=== PATIENT | male | born 1960 | race Caucasian/White ===

== ENCOUNTER → 2016-09-14 | Outpatient (CLI) | payer OTHER ==
--- NOTE | 2016-09-14 16:11 | CT ---
EXAMINATION TYPE: CT abdomen pelvis w con DATE OF EXAM: 09/14/2016 COMPARISON: CT abdomen and pelvis November 13, 2014. HISTORY: Patient complains of generalized abdominal pain and pressure. CT DLP: 2101.1 mGycm, Automated Exposure Control for Dose Reduction was Utilized. CONTRAST: CT scan of the abdomen and pelvis is performed with oral and with IV Contrast, patient injected with 100 mL of Omnipaque 300. FINDINGS: LUNG BASES: Patchy dependent atelectasis in both lung bases is felt present. LIVER/GB: No significant abnormality is appreciated. PANCREAS: No significant abnormality is seen. SPLEEN: No significant abnormality is seen. . ADRENALS: No significant abnormality is seen. KIDNEYS: No significant abnormality is seen. BOWEL: The oral contrast reaches level of the right colon. Evaluation of distal bowel is suboptimal d ue to lack of enteric contrast at this level. There is no suspicious small or large bowel dilatation seen. Diverticula are seen in the left colon. There is no CT evidence for acute diverticulitis. PROSTATE/SEMINAL VESICLES: Some central zone calcifications in normal size prostate gland are noted. LYMPH NODES: No greater than 1cm abdominal or pelvic lymph nodes are appreciated. OSSEOUS STRUCTURES: Metallic hardware from right hip arthroplasty is redemonstrated, this causes rocky cent streak artifact limiting evaluation of pelvic structures. There is mild anterior spurring in the mid lumbar spine. Loss of normal lumbar lordosis is present. OTHER: No significant additional abnormality is seen. IMPRESSION: Sigmoid colonic diverticulosis without convincing CT evidence for acute diverticulitis. N o ascites is seen. No significant new or acute finding is seen to account for patient's symptoms.
== END | disposition home or self-care (01) ==
LOC: RADCTMAIN 13:54
PROVIDERS: ATTEND Internal Medicine Geriatric Medicine
DX: K57.30 Diverticulosis of large intestine without perforation or abscess without bleeding (principal)
CPT/HCPCS: 74177; Q9967

== ENCOUNTER → 2020-06-17 | Outpatient (CLI) | payer OTHER ==
--- NOTE | 2020-06-17 12:32 | P.STRESS ---
- Stress Test Note Stress Test Results/Findings: Exam Performed: stress echo exercise with con Exam Date: 06/17/20 Reason for Exam: angina Height: 6 ft 4 in Weight: 124.738 kg Protocol: hilda Stage: 2 Duration of Exercise: 6 min Resting Heart Rate: 75 Resting Blood Pressure: 130/61 Maximum Achieved Heart Rate: 137 Maximum Achieved Blood Pressure: 177/67 85% PMHR: 135 100% PMHR: 159 METS: 7.1 Technologist Comment: Stress Test Results/Findings: This is a 59-year-old gentleman with a history of hypercholesterolemia being evaluated for symptoms of chest pain. No Stress data: Baseline EKG showed sinus rhythm with normal MN and QRS duration. Blood pressure at rest is 130/61 and pulse rate of 75. Patient walked on the Hilda protocol for about 6 minutes achieving a maximal rate of 137 with blood pressure 177/67. Patient developed about [address] segments in inferolateral leads associated with chest pain and tightness. The symptoms reverted back to close to normal in about 9 minutes, in the post excised.. Rare PVCs are noted. Echo data: Baseline echo images show normal wall motion and thickening. Exercise echo images showed hypokinesia of the mid midanterior wall and also lateral wall suggestive of ischemia. The wall motions abnormalities normalized in the resting phase after exercise. Final impression: #1. Positive stress test #2. Abnormal stress echo with inducible ischemic changes involving the mid and she wall and lateral wall.
--- NOTE | 2020-06-17 12:36 | P.CRDCN ---
History of Present Illness Consult date: 06/17/20 History of present illness: This is a 59-year-old gentleman with history of hypercholesterolemia who has been experiencing some burning chest pain with moderate activities. Most of hypertension and diabetes of previous ischemic heart disease. His brother and father had cardiac issues, but no heart attacks. In view of these ongoing chest pain. Patient was referred for stress test. On the stress test patient developed chest tightness associated with EKG changes of ischemia. Stress echo also showed ischemic changes involving the mid antral wall and lateral wall. In view of these changes, patient was advised to have a cardiac catheterization. Patient wanted to wait because of some family issues. Patient is being initiated on beta parveen in the form of metoprolol 25 mg by mouth twice a day and aspirin along with nitro sublingual. Patient is already on a lipid-lowering agent. Patient will contact us if he wants to have a cardiac catheterization. Dr. Apodaca's office is being contacted. Review of Systems REVIEW OF SYSTEMS: CONSTITUTIONAL: Accept the falls. Patient is doing well. No complaints of fever or chills EYES: Denies diplopia, blurring of vision EARS, NOSE, MOUTH, THROAT: Denies headaches, denies sore throat. CARDIOVASCULAR: Exertional chest pain RESPIRATORY: Denies shortness of breath, denies cough. GASTROINTESTINAL: Denies change in appetite, denies abdominal pain, denies diarrhea GENITOURINARY: Denies hematuria, denies infections. MUSKULOSKELETAL: Denies pain, denies swelling. Denies any cramps or claudication INTEGUMENTARY: Denies rash, denies eczema. NEUROLOGICAL: Denies focal weakness, or visual disturbance. Denies any dizziness or syncope PSYCHIATRIC: Denies anxiety, denies depression. HEMATOLOGIC/LYMPHATIC: Denies any bleeding, denies enlarged lymph nodes. Past Medical History Past Medical History: No Reported History Additional Past Medical History / Comment(s): Hypercholesterolemia History of Any Multi-Drug Resistant Organisms: None Reported Additional Past Surgical History / Comment(s): right hip replacement Past Psychological History: No Psychological Hx Reported Past Alcohol Use History: Occasional Past Drug Use History: None Reported Medications and Allergies Home Medications Medication Instructions Recorded Confirmed Type Aspirin 81 mg PO DAILY #30 chewable 06/17/20 Rx Metoprolol Tartrate 25 mg PO BID #60 tab 06/17/20 Rx Nitroglycerin Sl Tabs [Nitrostat] 0.4 mg SUBLINGUAL Q5M PRN #25 tab 06/17/20 Rx Allergies Allergy/AdvReac Type Severity Reaction Status Date / Time Penicillins Allergy Unknown Verified 10/19/14 05:07 Childhood Physical Exam Vitals: Intake and Output 06/16/20 06/17/20 06/17/20 22:59 06:59 14:59 Other: Weight 124.738 kg GENERAL EXAM: Patient is alert and oriented and doesn't appear to be in any acute distress HEENT: Normocephalic. Normal reaction of pupils, equal size, normal range of extraocular motion. No erythema or exudates in the throat. NECK: No masses, no nuchal rigidity. CHEST: No chest wall deformity. LUNGS: Equal air entry with no crackles or wheeze. HEART: S1 and S2 normal with no audible mumurs or gallops. Regular rhythm, femorals equal on both sides.. ABDOMEN: No hepatosplenomegaly, normal bowel sounds, no guarding or rigidity. SKIN: No rashes CENTRAL NERVOUS SYSTEM: No focal deficits. EXTREMITIES: No cyanosis, clubbing or edema. Results - Results Results: Stress test is positive Intake and Output 06/16/20 06/17/20 06/17/20 22:59 06:59 14:59 Other: Weight 124.738 kg Patient Weight 06/18/20 06:59 Weight 124.738 kg EKG Interpretations (text) Sinus rhythm Assessment and Plan (1) Exertional angina Current Visit: Yes Status: Acute Code(s): I20.8 - OTHER FORMS OF ANGINA PECTORIS SNOMED Code(s): 970396353 (2) Positive cardiac stress test Current Visit: Yes Status: Acute Code(s): R94.39 - ABNORMAL RESULT OF OTHER CARDIOVASCULAR FUNCTION STUDY SNOMED Code(s): 084699711 (3) Hypercholesterolemia Current Visit: Yes Status: Acute Code(s): E78.00 - PURE HYPERCHO LESTEROLEMIA, UNSPECIFIED SNOMED Code(s): 51845842 Plan: Patient is initiated on metoprolol, aspirin and nitroglycerin along with lipid-lowering agent. Advised to have cardiac catheterization. Patient will think about it and discuss with primary care physician. He'll contact us regarding further course
--- NOTE | 2020-06-17 16:16 | EST ---
Stress Test Results/Findings: Exam Performed: stress echo exercise with con Exam Date: 06/17/20 Reason for Exam: angina Height: 6 ft 4 in Weight: 124.738 kg Protocol: hilda Stage: 2 Duration of Exercise: 6 min Resting Heart Rate: 75 Resting Blood Pressure: 130/61 Maximum Achieved Heart Rate: 137 Maximum Achieved Blood Pressure: 177/67 85% PMHR: 135 100% PMHR: 159 METS: 7.1 Technologist Comment: Stress Test Results/Findings: This is a 59-year-old gentleman with a history of hypercholesterolemia being evaluated for symptoms of chest pain. No Stress data: Baseline EKG showed sinus rhythm with normal CO and QRS duration. Blood pressure at rest is 130/61 and pulse rate of 75. Patient walked on the Hilda protocol for about 6 minutes achieving a maximal rate of 137 with blood pressure 177/67. Patient developed about [address] segments in inferolateral leads associated with chest pain and tightness. The symptoms reverted back to close to normal in about 9 minutes, in the post excised.. Rare PVCs are noted. Echo data: Baseline echo images show normal wall motion and thickening. Exercise echo images showed hypokinesia of the mid midanterior wall and also lateral wall suggestive of ischemia. The wall motions abnormalities normalized in the resting phase after exercise. Final impression: #1. Positive stress test #2. Abnormal stress echo with inducible ischemic changes involving the mid anterior wall and lateral wall. MTDD
== END | disposition home or self-care (01) ==
LOC: RADNMMAIN 08:57
PROVIDERS: ATTEND Internal Medicine Geriatric Medicine
DX: I20.8 Other forms of angina pectoris (principal); R94.39 Abnormal result of other cardiovascular function study; E78.00 Pure hypercholesterolemia, unspecified
CPT/HCPCS: 93351; Q9950

== ENCOUNTER 2020-07-01 09:05 | Day surgery (SDC) | payer OTHER ==
[2020-06-30 08:51] VITALS: BMI 33.5
[~2020-07-01 09:05] MED LIST: ALPRAZolam 0.25 MG TAB PO PRN; ALPRAZolam 0.5 MG TAB PO PRN; ASPIRIN 325 MG TAB PO ONE; ATORVASTATIN 80 MG TAB PO ONE; NITROGLYCERIN SL TABS 0.4 MG TAB SUBLINGUAL PRN; SODIUM CHLORIDE 0.9% 1,000 ML in EMPTY BAG 1 BAG IV ONE
[2020-07-01 09:54] LABS: Basophils # (A) 0.1 k/uL (0-0.2); Basophils % (A) 1 %; Eosinophils # (A) 0.2 k/uL (0-0.7); Eosinophils % (A) 2 %; HCT 46.7 % (39.0-53.0); HGB 16.5 gm/dL (13.0-17.5); Lymphocytes # (A) 1.2 k/uL (1.0-4.8); Lymphocytes % (A) 12 %; MCH 29.8 pg (25.0-35.0); MCHC 35.3 g/dL (31.0-37.0); MCV 84.3 fL (80.0-100.0); Monocytes # (A) 0.8 k/uL (0-1.0); Monocytes % (A) 8 %; Neutrophils # (A) 7.9 k/uL (1.3-7.7); Neutrophils % (A) 77 %; Platelet Count 217 k/uL (150-450); RBC 5.54 m/uL (4.30-5.90); WBC 10.2 k/uL (3.8-10.6)
[2020-07-01 10:05] LABS: African American GFR (CKD) >90 (>60 ml/min/1.73 sqM); Anion Gap 9 mmol/L; Blood Urea Nitrogen 19 mg/dL (9-20); Calcium 9.2 mg/dL (8.4-10.2); Carbon Dioxide 26 mmol/L (22-30); Chloride 106 mmol/L (98-107); Glucose 105 mg/dL (74-99); Non-African American GFR(CKD) >90 (>60 ml/min/1.73 sqM); Potassium 4.3 mmol/L (3.5-5.1); Sodium 141 mmol/L (137-145)
[2020-07-01] MEDS ORDERED: LIDOCAINE 1% INJ 10MG/ML (20 ML MDV) ONE (11:21)
[2020-07-01] MEDS ORDERED: VERAPAMIL 2.5 MG/ML 2 ML AMP ONE (11:21)
[2020-07-01] MEDS ORDERED: HEPARIN SODIUM 1,000 UN/ML (10ML VL) ONE (11:26)
[2020-07-01] MEDS ORDERED: LIDOCAINE 1% INJ 10MG/ML (20 ML MDV) SQ ONE (11:27)
[2020-07-01] MEDS ORDERED: HEPARIN SODIUM 1,000 UN/ML (10ML VL) IV ONE (11:28)
[2020-07-01] MEDS ORDERED: MIDAZOLAM 2 MG/2 ML VIAL IV ONE (11:28)
[2020-07-01] MEDS ORDERED: VERAPAMIL SYRINGE (5 MG/10 ML) INTRAARTER ONE (11:28)
[2020-07-01] MEDS ORDERED: NITROGLYCERIN OINT 1 INCH/GM PACKET TOPICAL ONE ×2 (11:37→11:39)
[2020-07-01] MEDS ORDERED: IOPAMIDOL-370 125ML BTL INJ ONE (12:03)
[2020-07-01] MEDS ORDERED: RX INFO: IV CONTRAST WAS GIVEN 1 EACH MISC MISCELLANE PRN (12:10)
--- NOTE | 2020-07-01 12:33 | P.CARDCATH ---
Date of Procedure: 07/01/20 Preoperative Diagnosis: Chest pain and positive stress test Postoperative Diagnosis: Significant left main disease and also moderate to severe disease in the intermediate Procedure(s) Performed: Left heart catheterization without left ventriculography Description of Procedure: HISTORY: This is a 59-year-old gentleman with history of hypercholesterolemia and family history of ischemic heart disease who recently was evaluated by stress test because of chest pains. Patient developed ischemic changes associated with wall motion abnormalities involving the anterior wall and lateral wall. Patient is advised to have a cardiac catheterization for definitive diagnosis CONSENT:I have discussed the risks, benefits and alternative therapies for the above-mentioned procedure and for both sedation/analgesia as well as necessary b lood product administration, if indicated, as they pertain to this patient. The patient has indicated understanding and acceptance of the risks and procedures discussed. PROCEDURE: Patient was brought to the lab in a fasting state. Patient was given some IV sedation. The right wrist is infiltrated with lidocaine and right radial artery was entered using Seldinger technique. A 6-[place] catheter was left in place and selective coronary arteriography was performed. Patient tolerated the procedure well. TR band was applied for hemostasis. No immediate complications were noted and patient was transferred to [facility] in a stable condition Conscious Sedation: Versed 2mg Fentanyl 0 g Duration 39 minutes HEMODYNAMICS: The aortic pressure is about 100/60. Left ventricular end-diastolic pressures were not measured SELECTIVE CORONARY ARTERIOGRAPHY: LEFT MAIN: There is a insect lesion involving the left main with about 70% stenosis. This is a smoker narrowing without any calcification. The possibility of spasm to be considered THE LEFT ANTERIOR DESCENDING CORONARY ARTERY:. This is a good caliber vessel free of any significant occlusive disease THE INTERMEDIATE CORONARY ARTERY: This is a small to moderate caliber vessel with about 70-80% stenosis near the ostium THE LEFT CIRCUMFLEX AND IS CORONARY ARTERY:. This is a good caliber vessel. Free of occlusive disease and dominant THE RIGHT CORONARY ARTERY:. This is a small-caliber vessel free of occlusive disease LEFT VENTRICULOGRAPHY:. Not performed FINAL IMPRESSION:. Critical lesion involving the left main, although the possibility of spasm to be ruled out. There is moderate to severe disease involving the ostium of the small intermediate PLAN: Evaluation by cardiac surgeon. Films are already reviewed with Dr. KASIA Gamboa. He feels that there is a critical left main disease. If the surgeons or tenderness, patient may need bypass surgery. If there is any question, evaluation by intravascular ultrasound to be considered PROGNOSIS: Fair with successful therapy
--- NOTE | 2020-07-01 14:38 | XR ---
EXAMINATION TYPE: XR chest 2V DATE OF EXAM: 07/01/2020 COMPARISON: NONE HISTORY: Presurgery for CABG TECHNIQUE: Frontal and lateral views of the chest are obtained. FINDINGS: Heart size is within normal limits. Overlying leads. Low lung volumes. No focal consolidat ion, pneumothorax or pleural effusion. Degenerative changes of the thoracic spine. IMPRESSION: 1. No acute pulmonary disease.
[2020-07-01 15:26] LABS: ALT 17 U/L (4-49); AST 16 U/L (17-59); African American GFR (CKD) >90 (>60 ml/min/1.73 sqM); Albumin 3.9 g/dL (3.5-5.0); Alkaline Phosphatase 109 U/L (38-126); Anion Gap 4 mmol/L; Blood Urea Nitrogen 17 mg/dL (9-20); Calcium 8.8 mg/dL (8.4-10.2); Carbon Dioxide 27 mmol/L (22-30); Chloride 107 mmol/L (98-107); Glucose 103 mg/dL (74-99); Magnesium 2.1 mg/dL (1.6-2.3); Non-African American GFR(CKD) >90 (>60 ml/min/1.73 sqM); Potassium 4.3 mmol/L (3.5-5.1); Sodium 138 mmol/L (137-145); Total Bilirubin 0.7 mg/dL (0.2-1.3)
[2020-07-01 15:32] LABS: Partial Thromboplastin Time 24.7 sec (22.0-30.0)
--- NOTE | 2020-07-01 15:57 | US ---
EXAMINATION TYPE: US carotid duplex BILAT DATE OF EXAM: 07/01/2020 COMPARISON: NONE CLINICAL HISTORY: preop cabg. EXAM MEASUREMENTS: RIGHT: Peak Systolic Velocity (PSV) cm/sec ----- Right CCA: 98.3 ----- Right ICA: 90.3 ----- Right ECA: 126.5 ICA/CCA ratio: 0.9 RIGHT: End Diastole cm/sec ----- Right CCA: 17.5 ----- Right ICA: 31. ----- Right ECA: 0.0 LEFT: Peak Systolic Velocity (PSV) cm/sec ----- Left CCA: 106. ----- Left ICA: 110.6 ----- Left ECA: 131.4 ICA/CCA ratio: 1.0 LEFT: End Diastole cm/sec ----- Left CCA: 21.6 ----- Left ICA: 18.7 ----- Left ECA: 6.5 VERTEBRALS (direction of flow): Right Vertebral: Antegrade Left Vertebral: Antegrade Rhythm: Normal [id number] atherosclerotic plaque without significant velocity increases. IMPRESSION: 1. Less than 50% stenosis of the bilateral internal carotid arteries. No evidence of hemodynamically significant stenosis of the common carotid arteries or internal carotid arteries. Mild to moderate at herosclerotic plaque. Criteria for Assigning % of Stenosis / Diameter reduction (Estimation based on the indirect measurements of the internal carotid artery velocities (ICA PSV). 1. Normal (no stenosis)=ICA PSV < 125 cm/s: ratio < 2.0: ICA EDV<40 cm/s. 2. Less than 50% stenosis=ICA PSV < 125 cm/s: ratio < 2.0: ICA EDV<40 cm/s. 3. 50 to 69% stenosis=ICA PSV of 125 to 230 cm/s: ration 2.0 ? 4.0: ICA EDV 40-100 cm/s. 4. Greater than 70% stenosis to near occlusion= ICA PSV > 230 cm/s: ratio > 4.0: ICA EDV > 100 cm/s. 5. Near occlusion= ICA PSV velocities may be low or undetectable: variable ratio and ICA EDV. 6. Total occlusion=unable to detect flow.
--- NOTE | 2020-07-01 16:39 | P.GSCN ---
History of Present Illness Consult date: 07/01/20 Reason for Consult: Coronary artery disease with extensive left main disease and a 70-80% stenosis in the intermediate coronary artery. Requesting physician: Migel Oh History of present illness: This is a 59-year-old gentleman who is followed by Dr. Sabino Apodaca for his primary care service on an outpatient basis. He is a past medical history significant for dyslipidemia, hard of hearing to his right ear, benign prostatic hypertrophy, osteoarthritis with a history of right hip surgery, a lifetime nonsmoker and a family history of early onset coronary artery disease with his brother having cardiac stents placed in his early 50s. In the past few months the patient has been experiencing some burning sensation in his throat with activity mainly shoveling snow. He recently went for his annual physical at Dr. Apodaca's office and he mentioned these symptoms. He denies any recent fever, chills, nausea, vomiting, dizziness, presyncope, syncope or headache. The patient does report that the symptoms are associated with some shortness of breath. Due to the above mentioned complaints he was sent for a stress test which showed a [address] segments and his inferior lateral leads associated with chest pain and tightness after the patient walked on the Stefan protocol for about 6 minutes. The stress test results were reviewed by Dr. Oh from cardiology and the patient was recommended to undergo an elective heart catheterization in which she underwent today. The heart catheterization demonstrated a critical lesion involving the left main coronary artery and a 70-80% stenosis near the ostium of the intermediate coronary artery. Subsequently, due to the findings on the cardiac catheterization a consult was placed to Dr. Jonel Pruitt from thoracic surgery for further evaluation and treatment recommendations including myocardial revascularization surgery. Review of Systems A 14 point review of systems was completed and was negative except as mentioned in the HPI. Past Medical History Past Medical History: Hyperlipidemia, Osteoarthritis (OA), Prostate Disorder Additional Past Medical History / Comment(s): Hypercholesterolemia History of Any Multi-Drug Resistant Organisms: None Reported Past Surgical History: Joint Replacement Additional Past Surgical History / Comment(s): right hip replacement Past Anesthesia/Blood Transfusion Reactions: No Reported Reaction Past Psychological History: No Psychological Hx Reported Smoking Status: Never smoker Past Alcohol Use History: Rare Past Drug Use History: None Reported - Past Family History Mother Family Medical History: Cancer, Hypertension Additional Family Medical History / Comment(s): bone Father Family Medical History: Cancer, Congestive Heart Failure (CHF) Additional Family Medical History / Comment(s): bladder and skin Brother(s) Family Medical History: Cancer, Coronary Artery Disease (CAD) Additional Family Medical History / Comment(s): skin Medications and Allergies Home Medications Medication Instructions Recorded Confirmed Type Aspirin 81 mg PO DAILY #30 chewable 06/17/20 07/01/20 Rx Metoprolol Tartrate 25 mg PO BID #60 tab 06/17/20 07/01/20 Rx Nitroglycerin Sl Tabs [Nitrostat] 0.4 mg SUBLINGUAL Q5M PRN #25 tab 06/17/20 06/30/20 Rx Tamsulosin [Flomax] 0.4 mg PO HS 06/30/20 07/01/20 History Ubidecarenone [Co Q-10] 100 mg PO HS 06/30/20 07/01/20 History Allergies Allergy/AdvReac Type Severity Reaction Status Date / Time Penicillins Allergy Unknown Verified 06/30/20 08:41 Childhood Surgical - Exam Vital Signs Temp Pulse Resp BP 97.3 F L 80 16 136/76 07/01/20 09:47 07/01/20 09:47 07/01/20 09:47 07/01/20 09:47 - General well developed, well nourished, no distress, no pain, obese - Eyes PERRL, normal ocular movement, no icteric - ENT normal pinna, normal nares, normal mucosa, no congestion, decreased hearing (right ear.) - Neck Neck is supple. No lymphadenopathy. no masses, no bruits, trachea midline, no venous distension - Respiratory Lung sounds essentially clear throughout. Respirations are symmetrical and nonlabored. - Cardiovascular Regular rhythm and rate. S1 and S2 present, negative for S3, gallop or murmur. No peripheral edema. - Abdomen Abdomen: soft, non tender, bowel sounds (Positive to all 4 abdominal quadrants.), no organomegaly, no masses, no guarding, no rigid, no distended Hernia: none - Genitourinary Deferred - Rectum Deferred - Integumentary no rash, no growths, no abnormal pigmentation - Neurologic Cranial nerves II through XII intact. normal coordination, normal sensation - Musculoskeletal Moves all 4 extremities equal strength. - Psychiatric oriented to time, oriented to person, oriented to place, speech is normal, rubia ry intact Results - Labs 07/01/20 09:30 07/01/20 15:00 Abnormal Lab Results - Last 24 Hours (Table) 07/01/20 07/01/20 Range/Units 09:30 09:30 Neutrophils # 7.9 H (1.3-7.7) k/uL Glucose 105 H (74-99) mg/dL Diabetes panel 07/01/20 Range/Units 09:30 Sodium 141 (137-145) mmol/L Potassium 4.3 (3.5-5.1) mmol/L Chloride 106 (98-107) mmol/L Carbon Dioxide 26 (22-30) mmol/L BUN 19 (9-20) mg/dL Creatinine 0.87 (0.66-1.25) mg/dL Glucose 105 H (74-99) mg/dL Calcium 9.2 (8.4-10.2) mg/dL Calcium panel 07/01/20 Range/Units 09:30 Calcium 9.2 (8.4-10.2) mg/dL Pituitary panel 07/01/20 Range/Units 09:30 Sodium 141 (137-145) mmol/L Potassium 4.3 (3.5-5.1) mmol/L Chloride 106 (98-107) mmol/L Carbon Dioxide 26 (22-30) mmol/L BUN 19 (9-20) mg/dL Creatinine 0.87 (0.66-1.25) mg/dL Glucose 105 H (74-99) mg/dL Calcium 9.2 (8.4-10.2) mg/dL Adrenal panel 07/01/20 Range/Units 09:30 Sodium 141 (137-145) mmol/L Potassium 4.3 (3.5-5.1) mmol/L Chloride 106 (98-107) mmol/L Carbon Dioxide 26 (22-30) mmol/L BUN 19 (9-20) mg/dL Creatinine 0.87 (0.66-1.25) mg/dL Glucose 105 H (74-99) mg/dL Calcium 9.2 (8.4-10.2) mg/dL - Imaging Additional studies: Cardiac catheterization films reviewed by Dr. PRUITT. Assessment and Plan Assessment: 1. Coronary artery disease with significant left main disease 2. History of hyperlipidemia 3. Benign prostatic hypertrophy 4. History of osteoarthritis with right hip replacement 5. Family history of early onset coronary artery disease with his brother having cardiac stent placement in his early 50s 6. Lifetime nonsmoker Plan: The patient was seen and examined at his bedside in the extended stay unit. His chart and diagnostics are reviewed. The patient was seen and examined by Dr. Jonel Trevino from cardiothoracic surgery. Preoperative testing and preoperative testing has been initiated. A 5 m walk test will be completed once the patient is able to ambulate. The usual preoperative course of myocardial revascularization surgery was discussed in detail with the patient, and his que stions were answered. Continue to maximize medical therapy with aspirin, statin and beta parveen. Once his preoperative testing has been completed an STS risk score will be calculated and discussed with the patient. Medical management and other comorbidities per primary care service. More recommendations to follow based on patient's clinical course. Dr. Pruitt met with the patient and his present at his bedside in the extended stay unit, treatment options were discussed with the patient including myocardial revascularization surgery. Knowing and understanding the risks of myocardial revascularization surgery the patient wishes to proceed with the surgical option. He will be scheduled for myocardial revascularization surgery on 07/06/2020 with left internal mammary artery, endoscopic vein harvest and possible radial artery endoscopic harvest. Thank you Dr. Oh for this consult and we'll look for to working with you in the care of this patient. Time with Patient: Greater than 30
[2020-07-01 17:01] LABS: Appearance,Urine Clear (Clear); Bilirubin,Urine Negative (Negative); Blood,Urine Negative (Negative); Color,Urine Light Yellow; Glucose,Urine (UA) Negative (Negative); Ketones,Urine Negative (Negative); Leukocyte Esterase,Urine Negative (Negative); Nitrite,Urine Negative (Negative); Protein,Urine Negative (Negative); Specific Gravity,Urine 1.011 (1.001-1.035); Urobilinogen,Urine <2.0 mg/dL (<2.0)
[2020-07-01] MEDS ORDERED: TAMSULOSIN 0.4 MG CAP.ER.24H PO SCH (18:00)
[2020-07-01] MEDS ORDERED: METOPROLOL TARTRATE 25 MG TAB PO SCH (18:00)
[2020-07-01] MEDS ORDERED: ATORVASTATIN 10 MG TAB PO SCH (18:00)
[2020-07-01] MEDS: SODIUM CHLORIDE 0.9% 1,000 ML IV SCH (18:59)
[2020-07-01] MEDS ORDERED: NON FORMULARY DRUG (Ubidecarenone [Co Q-10] 100 MG Capsule) PO SCH (21:00)
[2020-07-01 22:24] VITALS: RESP 18
[2020-07-02 02:07] LABS: Hemoglobin A1C 5.1 % (4.0-6.0)
[2020-07-02] MEDS: SODIUM CHLORIDE 0.9% 1,000 ML IV SCH ×2 (05:22→08:50)
[2020-07-02 08:56] LABS: Chol/HDL Ratio 3.46; Cholesterol 135 mg/dL (0-200); LDL Cholesterol,Calculated 66.6 mg/dL (0.0-131.0)
[2020-07-02] MEDS ORDERED: ASPIRIN 81 MG PO SCH ×2 (09:00)
[2020-07-02] MEDS ORDERED: METOPROLOL TARTRATE 25 MG TAB PO SCH (09:00)
--- NOTE | 2020-07-02 11:01 | ECHOF ---
Referral Reason: MEASUREMENTS -------- HEIGHT: 193.0 cm WEIGHT: 123.8 kg BP: 129/79 IVSd: 1.4 cm (0.6 - 1.1) LVIDd: 4.0 cm (3.9 - 5.3) LVPWd: 1.4 cm (0.6 - 1.1) EDV(Teich): 72 ml IVSs: 1.5 cm LVIDs: 2.9 cm LVPWs: 1.5 cm %IVS Thck: 8 % ESV(Teich): 33 ml EF(Teich): 53 % %FS: 27 % SV(Teich): 38 ml RVIDd: 4.6 cm (< 3.3) LALs A4C: 5.0 cm LAAs A4C: 14.5 cm LAESV A-L A4C: 36 ml LAESV MOD A4C: 34 ml LALs A2C: 5.3 cm LAAs A2C: 20.5 cm LAESV A-L A2C: 68 ml LAESV MOD A2C: 63 ml LAESV(A-L): 51 ml LAESV Index (A-L): 20.07 ml/m Ao Diam: 3.6 cm (2.0 - 3.7) LA Diam: 3.8 cm (2.7 - 3.8) AV Cusp: 2.5 cm (1.5 - 2.6) EPSS: 1.0 cm MV E Torsten: 0.86 m/s MV DecT: 187 ms MV Dec Mora: 4.6 m/s MV A Torsten: 0.69 m/s MV E/A Ratio: 1.24 MV PHT: 54 ms LVOT Vmax: 1.13 m/s LVOT maxP.13 mmHg AV Vmax: 1.16 m/s AV maxP.41 mmHg TR Vmax: 2.14 m/s TR maxP.34 mmHg RAP: 5.00 mmHg RVSP: 23.34 mmHg MV EF SLOPE: 140.67 mm/s (70 - 150) MV EXCURSION: 18.74 mm (> 18.000) FINDINGS -------- Sinus rhythm. This was a technically difficult study with suboptimal views. The left ventricular size is normal. There is moderate concentric left ventricular hypertrophy. O verall left ventricular systolic function is low-normal with, an EF between 50 - 55 %. The right ventricle is moderately enlarged. Normal LA size by volume 22+/-6 ml/m2. The right atrium was not well visualized. 5.0mg of Lumason was utilized for enhancement of images Interatrial and interventricular septum intact. The aortic valve was not well visualized. There is no evidence of aortic regurgitation. There is no evidence of aortic stenosis. The mitral valve was not well visualized. No mitral regurgitation. Mild tricuspid regurgitation present. There is no evidence of pulmonary hypertension. The right v entricular systolic pressure, as measured by Doppler, is 23.34mmHg. There is no pulmonic regurgitation present. The aortic root size is normal. IVC Not well visulized. There is no pericardial effusion. CONCLUSIONS -------- 1. The left ventricular size is normal. 2. There is moderate concentric left ventricular hypertrophy. 3. Overall left ventricular systolic function is low-normal with, an EF between 50 - 55 %. 4. The right ventricle is moderately enlarged. 5. Mild tricuspid regurgitation present. DATABASE DESIGN ANALYST: Otilia Chavez [facility]
[2020-07-02 12:05] VITALS: BP 126/73; TEMP 98
--- NOTE | 2020-07-02 12:22 | P.DS ---
Providers Date of admission: 07/01/2020 Attending physician: Migel Oh Consults: 07/01/20 12:14 Consult Physician Urgent Consulting Provider: Dariusz Rayo Consult Reason/Comments: CAD Do you want consulting provider notified?: Already Contacted Primary care physician: Sabino Apodaca - Discharge Diagnosis(es) (1) CAD (coronary artery disease) Current Visit: Yes Status: Acute (2) Exertional angina Current Visit: No Status: Acute (3) Positive cardiac stress test Current Visit: No Status: Acute Hospital Course: : This patient was recently evaluated because of chest pain and shortness of breath. Patient had a stress echocardiogram. Patient had a positive EKG changes associated with chest pain. Stress echocardiogram showed ischemic changes in the mid anterior wall and lateral wall. He was put on beta blockers and aspirin and is advised to have an elective cardiac catheterization. Cardiac catheterization revealed significant left main diseaseand also significant lesion involving the intermediate. The films were reviewed with Dr.BR Gamboa and also cardiac surgeon.It was felt that his left main disease significantand patient was advised aortocoronary bypass surgery.patient was monitored overnight. Patient remained stable without any chest pain, shortness of breath or dizziness or cardiac arrhythmias. His puncture site has healed well without any hematoma. He is tolerating activity. He is being discharged home to have surgery as an outpatient. In patients surgery was considered, however, patient and family wanted him to go home to take care of some of the family issues. Patient's is also ill with multiple myeloma. Considering patient's stable clinical status and family situation, it is felt that patient could have surgery as an outpatient. Patient is advised not to do any heavy lifting, pushing or pulling and report to the hospital if he has any persistent chest pain. He'll continue to be on beta blockers and aspirin with nitroglycerin on when necessary basis and also on lipid-lowering agents. Follow-up most probably after surgery Plan - Discharge Summary Discharge Rx Participant: Yes New Discharge Prescriptions: No Action Aspirin 81 mg PO DAILY #30 chewable Metoprolol Tartrate 25 mg PO BID #60 tab Tamsulosin [Flomax] 0.4 mg PO HS Ubidecarenone [Co Q-10] 100 mg PO HS Atorvastatin [Lipitor] 10 mg PO HS Nitroglycerin Sl Tabs [Nitrostat] 0.4 mg SUBLINGUAL Q5M PRN #25 tab PRN Reason: Chest Pain Discharge Medication List Aspirin 81 mg PO DAILY #30 chewable 06/17/20 [Rx] Metoprolol Tartrate 25 mg PO BID #60 tab 06/17/20 [Rx] Nitroglycerin Sl Tabs [Nitrostat] 0.4 mg SUBLINGUAL Q5M PRN #25 tab 06/17/20 [Rx] Tamsulosin [Flomax] 0.4 mg PO HS 06/30/20 [History] Ubidecarenone [Co Q-10] 100 mg PO HS 06/30/20 [History] Atorvastatin [Lipitor] 10 mg PO HS 07/01/20 [History] Follow up Appointment(s)/Referral(s): Migel Oh MD [STAFF PHYSICIAN] - 1 Week Patient Instructions/Handouts: CABG (Coronary Artery Bypass Graft) (DC) Discharge Disposition: HOME SELF-CARE
[2020-07-02 13:49] VITALS: PULSE 75
--- NOTE | 2020-07-02 14:10 | P.PN ---
Subjective Progress Note Date: 07/02/20 Principal diagnosis: Coronary artery disease with significant left main disease. Previous medical history of hyperlipidemia, benign prostatic hypertrophy, osteoarthritis with rig ht hip replacement, lifetime nonsmoker, and family history of early onset coronary artery disease with his brother having cardiac stent placement in his early 50s The patient is currently sitting up recliner in no acute distress. Denies any chest pain or shortness of breath. He has been ambulatory without difficulty. The patient was seen by Dr. Elena yesterday and discussion was had with Dr. Oh. Our plan is for coronary artery bypass surgery with left internal mammary artery, endoscopic vein harvest, and possible left radial artery harvest next 07/06/[address] Elena. This is acceptable to the patient and Dr. Oh. All questions answered. No new concerns. The patient anticipates being discharged to home today to return as an outpatient. Objective - Vital Signs Vital signs: Vital Signs Temp 98.0 F 07/02/20 08:00 Pulse 75 07/02/20 12:00 Resp 18 07/02/20 04:00 BP 126/73 07/02/20 08:00 Pulse Ox 93 L 07/02/20 08:00 Intake & Output 07/01/20 07/02/20 07/02/20 18:59 06:59 18:59 Intake Total 600 660 Output Total 400 Balance 600 260 Weight 124 kg 123 kg Intake: IV 100 Intake, IV Titration 500 Amount Sodium Chloride 0.9% 1, 500 000 ml @ 75 mls/hr IV . [id number] [facility] Rx#:[id number] Oral 660 Output: Urine 400 Other: Voiding Method Toilet # Voids 1 2 - Exam CONSTITUTIONAL: Appears comfortable, cooperative, no acute distress RESPIRATORY: Lungs sounds diminished bilaterally. Respirations even, nonlabored. Currently on room air with oxygen saturation 93%. Able to achieve 3000 mL on incentive spirometry. Strong cough. CARDIOVASCULAR: S1, S2 present. Regular rate and rhythm, sinus rhythm on telemetry. Palpable peripheral pulses bilaterally. No edema present. No calf pain or tenderness noted. GASTROINTESTINAL: Abdomen soft, nontender, nondistended. Active bowel sounds present 4 quadrants. Tolerating diet. GENITOURINARY: Continues to void INTEGUMENTARY: Skin is warm and dry with evidence of good perfusion. NEUROLOGIC: Cranial nerves II through XII intact MUSKULOSKELETAL: Able to move all extremities, strength equal bilaterally, gait normal PSYCHIATRIC: Alert and oriented to person place and time, appropriate affect, intact judgment and insight - Allied health notes Allied health notes reviewed: nursing - Labs CBC & Chem 7: 07/01/20 09:30 07/01/20 15:00 Labs: Abnormal Lab Results - Last 24 Hours (Table) 07/01/20 Range/Units 15:00 Glucose 103 H (74-99) mg/dL AST 16 L (17-59) U/L Total Protein 6.0 L (6.3-8.2) g/dL HDL Cholesterol 39.0 L (40.0-60.0) mg/dL Microbiology - Last 24 Hours (Table) 07/01/20 Unknown Nasal Screen MRSA/MSSA - Preliminary Nasal Swab Assessment and Plan Assessment: 1. Coronary artery disease with significant left main disease 2. History of hyperlipidemia, treated, cholesterol 135, LDL 66 3. Benign prostatic hypertrophy 4. History of osteoarthritis with right hip replacement 5. Lifetime nonsmoker, preoperative FEV1 62% of predicted 6. Family history of early onset coronary artery disease with his brother having cardiac stent placement in his early 50s Plan: 1. Continue to maximize medical therapy with aspirin, statin, beta blockers 2. Continue preoperative teaching 3. 5 m walk test completed: #1 2.56 seconds, #2 3.0 seconds, #3 2.45 seconds. Patient tolerated well without shortness of breath or difficulty in breathing 4. STS risk was calculated and discussed with the patient 5. The patient may be discharged to home from cardiothoracic surgery standpoint to return as an outpatient for elective coronary artery bypass surgery with left internal mammary artery, endoscopic vein harvesting, possible left radial artery harvesting and ligation of the left atrial appendage on 07/06/[address] Eelna 6. Our contact information was given to the patient should he have any questi ons or concerns Time with Patient: Greater than 30
[2020-07-02] MEDS ORDERED: TAMSULOSIN 0.4 MG CAP.ER.24H PO SCH (21:00)
--- NOTE | 2020-07-07 10:09 | P.VSCSTY ---
Greater Saphenous Vein Mapping This is bilateral lower extremity greater saphenous vein mapping. Date of service: 07/01/2020 Vein quality and ultrasound appearance: We see no endoluminal thrombus or wall changes. Vein size groin right : 7.6 x 6.4 groin left: 4.8 x 5.2 High thigh right: 5.7 x 4.6 high thigh left: 4.6 x 5.0 Mid thigh right: 4.2 x 3.1 mid thigh left: 5.7 x 3.8 Above-knee right: 3.3 x 3.1 above- knee left: 5.3 by 3.8 Below knee right: 2.9 x 2.3 below-knee left: 3.7 x 3.0 Mid calf right: 3.1 x 2.5 mid calf left: 3.2 x 2.3 Ankle right: 2.5 x 1.9 ankle left: 4.3 x 2.7 Impression: Usable bilateral greater saphenous vein.
--- NOTE | 2020-07-14 10:05 | P.ARTDOP ---
Arterial Doppler Bilateral radial artery studies: Date of study: 07/02/2020 Reason for study: Preop CABG Findings: On Doppler assessment we find no significant right to left or segmental pressure gradients. On digital plethysmography with radial artery compression, we see no significant pressure changes On imaging the right radial is 3.8 x 3.1 mm distally, 4.1 x 3.9 mm mid, and 4.7 x 4.1 mm proximally The left radial is 2.8 x 3.1 mm distally, 3.2 x 2.8 mm mid, and 3.1 x 2.7 mm proximally. Impression: Both radials appear usable by standard criteria
== END 2020-07-02 14:08 | disposition home or self-care (01) ==
LOC: CATHCVL 09:05 → 3SCARD 18:22 → CATHCVL 07-02 14:08
PROVIDERS: ATTEND Internal Medicine Cardiovascular Disease
DX: I25.10 Atherosclerotic heart disease of native coronary artery without angina pectoris (principal); E78.00 Pure hypercholesterolemia, unspecified; Z79.82 Long term (current) use of aspirin; Z79.899 Other long term (current) drug therapy; Z88.0 Allergy status to penicillin; Z20.822 Contact with and (suspected) exposure to COVID-19
CPT/HCPCS: 94150; 93306; 93458; 80061; 80053; 84443; 83735; 85025; 85610; 85730; 81003; 87070; 83036; 87635; 71046; 93930; 93970; 93923; 93880; C1894; C1769; J2250; J2001; J1644; Q9950; Q9967; 80048

== ENCOUNTER 2020-07-06 05:33 | Inpatient (IN) | payer OTHER ==
[2020-07-06] MEDS ORDERED: SODIUM CHLORIDE 0.9% 1,000 ML IV ONE (06:00)
[2020-07-06] MEDS ORDERED: LACTATED RINGERS 1,000 ML IV ONE (06:00)
[2020-07-06] MEDS ORDERED: CLEVIDIPINE BUTYRATE 25 MG in EMPTY BAG 1 BAG IV ONE (07:00)
[2020-07-06] MEDS ORDERED: MAGNESIUM SULFATE MG 500 MG/ML IV ONE (07:00)
[2020-07-06] MEDS ORDERED: PROTAMINE SULFATE 250 MG in EMPTY BAG 1 BAG IV ONE (07:00)
[2020-07-06] MEDS ORDERED: NITROGLYCERIN-D5W PMX 50 MG in DEXTROSE/WATER 1 250ML.BAG IV ONE (07:00)
[2020-07-06] MEDS ORDERED: PAPAVERINE 360 MG in SODIUM CHLORIDE 0.9% 90 ML IV ONE ×2 (07:00→09:37)
[2020-07-06] MEDS ORDERED: ASPIRIN 325 MG TAB PO ONE (07:00)
[2020-07-06] MEDS ORDERED: NITROGLYCERIN SL TABS 0.4 MG TAB SUBLINGUAL ONE (07:00)
[2020-07-06] MEDS ORDERED: INSULIN REGULAR 100 UNIT in SODIUM CHLORIDE 0.9% 100 ML IV ONE (07:00)
[2020-07-06] MEDS ORDERED: NITROGLYCERIN-D5W PMX 25 MG/250 ML BTL IV ONE (07:00)
[2020-07-06] MEDS ORDERED: ELECTROLYTE-A SOLUTION 1,000 ML with POTASSIUM CHLORIDE 40 MEQ, MAGNESIUM SULFATE 16 ME... IV ONE ×5 (07:00)
[2020-07-06] MEDS ORDERED: PHENYLEPHRINE 10 MG/ML VIAL IV ONE (07:00)
[2020-07-06] MEDS ORDERED: NOREPINEPHRINE 4 MG in SODIUM CHLORIDE 0.9% 250 ML IV ONE (07:00)
[2020-07-06] MEDS ORDERED: ELECTROLYTE-A SOLUTION 1,000 ML with POTASSIUM CHLORIDE 100 MEQ, MAGNESIUM SULFATE 16 M... IV ONE ×5 (07:00)
[2020-07-06] MEDS ORDERED: CALCIUM CHLORIDE 100 MG/ML 10 ML SYRINGE IV ONE (07:00)
[2020-07-06] MEDS ORDERED: ceFAZolin 1,000 MG in SODIUM CHLORIDE 0.9% IRRIGATIO 1,000 ML IRRIGATION ONE (07:00)
[2020-07-06] MEDS ORDERED: HEPARIN SODIUM 1,000 UN/ML (10ML VL) IV ONE (07:00)
[2020-07-06] MEDS ORDERED: CHLORHEXIDINE GLUCONATE 15 ML CUP MUCOUS MEM ONE (07:00)
[2020-07-06] MEDS ORDERED: SODIUM BICARB 8.4% 50 ML SYR (1 MEQ/ML) IV ONE (07:00)
[2020-07-06] MEDS ORDERED: ceFAZolin 3 GM in SODIUM CHLORIDE 0.9% 100 ML IVPB ONE (07:00)
[2020-07-06] MEDS ORDERED: ALBUMIN HUMAN 5% 500 ML IVPB ONE (07:00)
[2020-07-06] MEDS ORDERED: METOPROLOL TARTRATE 12.5 MG TAB PO ONE (07:00)
[2020-07-06] MEDS ORDERED: ATORVASTATIN 10 MG TAB PO ONE (07:00)
[2020-07-06] MEDS ORDERED: propofoL 1,000 MG/100 ML VIAL IV ONE (07:00)
[2020-07-06] MEDS ORDERED: PHENYLEPHRINE 40 MG in SODIUM CHLORIDE 0.9% 250 ML IV ONE (07:00)
[2020-07-06] MEDS ORDERED: PROTAMINE SULFATE 10 MG/ML 25 ML VIAL IV ONE ×2 (07:00→07:26)
[2020-07-06] MEDS ORDERED: ALBUMIN HUMAN 25% 50 ML IV ONE (07:00)
[2020-07-06] MEDS ORDERED: TRANEXAMIC ACID 2,000 MG in SODIUM CHLORIDE 0.9% 80 ML IV ONE ×4 (07:00)
[2020-07-06] MEDS ORDERED: HEPARIN SODIUM,PORCINE 5,000 UNIT in SODIUM CHLORIDE 0.9% 500 ML 500 ML IV ONE (07:00)
[2020-07-06] MEDS ORDERED: ELECTROLYTE-R (PH 7.4) 1,000 ML IV.SOLN IV ONE (07:26)
[2020-07-06] MEDS ORDERED: ePHEDrine SULFATE/0.9% NACL/PF 50 MG/5 ML SYRINGE IV ONE (07:26)
[2020-07-06] MEDS ORDERED: SODIUM CHLORIDE 0.9% 250 ML BAG ONE (07:26)
[2020-07-06] MEDS ORDERED: PHENYLEPHRINE-0.9% NACL SYG 1,000 MCG/10 ML SYRINGE ONE (07:26)
[2020-07-06] MEDS ORDERED: TRANEXAMIC ACID 1,000 MG/10 ML VIAL ONE (07:26)
[2020-07-06] MEDS ORDERED: PROPOFOL 10 MG/ML 20 ML VIAL IV ONE (07:26)
[2020-07-06] MEDS ORDERED: SUCCINYLCHOLINE CHLORIDE 100 MG/5 ML SYR IV ONE (07:26)
[2020-07-06] MEDS ORDERED: MIDAZOLAM 2 MG/2 ML VIAL ONE (07:26)
[2020-07-06] MEDS ORDERED: SODIUM CHLORIDE 0.9% IRRIG 1,000 ML BTL IRRIGATION ONE (07:26)
[2020-07-06] MEDS ORDERED: ceFAZolin 1,000 MG VIAL ONE (07:26)
[2020-07-06] MEDS ORDERED: CALCIUM CHLORIDE 100 MG/ML 10 ML SYRINGE ONE (07:26)
[2020-07-06] MEDS ORDERED: VECURONIUM 10 MG VIAL IV ONE (07:26)
[2020-07-06] MEDS ORDERED: fentaNYL (PF) 50 MCG/ML 2 ML AMP ONE (07:26)
[2020-07-06] MEDS ORDERED: ALBUMIN HUMAN 5% (25gm) 500 ML VIAL IVPB ONE (07:26)
[2020-07-06] MEDS ORDERED: NITROGLYCERIN-D5W PMX 50 MG/250 ML BOTTLE IV ONE (07:26)
[2020-07-06] MEDS ORDERED: fentaNYL (PF) 50 MCG/ML 50 ML VIAL ONE (07:26)
[2020-07-06] MEDS ORDERED: INSULIN REGULAR 100 UNIT/ML VIAL ONE (07:26)
[2020-07-06] MEDS ORDERED: SODIUM CHLORIDE 0.9% 100 ML BAG ONE (07:26)
[2020-07-06] MEDS ORDERED: MAGNESIUM SULFATE 4 MEQ/ML 10ML VIAL ONE (07:26)
[2020-07-06] MEDS ORDERED: HEPARIN SODIUM,PORCINE 10,000 UNIT/ML 1 ML VIAL ONE (07:26)
[2020-07-06] MEDS ORDERED: LIDOCAINE 2% SYG (PF) 100 MG/5 ML ONE (07:26)
[2020-07-06 08:22] LABS: ABG Base Excess -0.2 mmol/L; ABG Glucose Whole Blood 110 mg/dL (75-99); ABG HCO3 25 mmol/L (21-25); ABG Hematocrit 43 % (34.0-46.0); ABG Ionized Calcium 4.7 mg/dL (4.5-5.3); ABG Lactic Acid Whole Blood 0.9 mmol/L (0.5-1.6); ABG PCO2 44 mmHg (35-45); ABG PH 7.37 (7.35-7.45); ABG PO2 353 mmHg (83-108); ABG Potassium Whole Blood 4.4 mmol/L (3.4-4.5); ABG Sodium Whole Blood 140 mmol/L (135-146); ABG TCO2 27 mmol/L (19-24)
[2020-07-06] MEDS ORDERED: SODIUM CHLORIDE 0.9% 500 ML 500 ML with HEPARIN SODIUM,PORCINE 5,000 UNIT IV ONE ×2 (09:37)
[2020-07-06] MEDS ORDERED: ceFAZolin 1,000 MG in SODIUM CHLORIDE 0.9% 1,000 ML IRRIGATION ONE (09:37)
[2020-07-06 09:49] LABS: ABG Glucose Whole Blood 149 mg/dL (75-99); ABG HCO3 24 mmol/L (21-25); ABG Hematocrit 39 % (34.0-46.0); ABG Ionized Calcium 4.6 mg/dL (4.5-5.3); ABG Lactic Acid Whole Blood 1.1 mmol/L (0.5-1.6); ABG Oxygen Saturation 99.2 % (94-97); ABG PCO2 53 mmHg (35-45); ABG PH 7.27 (7.35-7.45); ABG PO2 161 mmHg (83-108); ABG Potassium Whole Blood 4.2 mmol/L (3.4-4.5); ABG Sodium Whole Blood 139 mmol/L (135-146); ABG TCO2 26 mmol/L (19-24)
[2020-07-06 10:45] LABS: ABG Glucose Whole Blood 168 mg/dL (75-99); ABG HCO3 22 mmol/L (21-25); ABG Hematocrit 33 % (34.0-46.0); ABG Lactic Acid Whole Blood 1.5 mmol/L (0.5-1.6); ABG PCO2 40 mmHg (35-45); ABG PH 7.35 (7.35-7.45); ABG PO2 303 mmHg (83-108); ABG Potassium Whole Blood 4.6 mmol/L (3.4-4.5); ABG Sodium Whole Blood 136 mmol/L (135-146); ABG TCO2 24 mmol/L (19-24)
[2020-07-06 11:17] LABS: ABG Base Excess -1.9 mmol/L; ABG Glucose Whole Blood 195 mg/dL (75-99); ABG HCO3 24 mmol/L (21-25); ABG Hematocrit 31 % (34.0-46.0); ABG Ionized Calcium 4.1 mg/dL (4.5-5.3); ABG PCO2 43 mmHg (35-45); ABG PH 7.35 (7.35-7.45); ABG PO2 237 mmHg (83-108); ABG Potassium Whole Blood 4.8 mmol/L (3.4-4.5); ABG Sodium Whole Blood 138 mmol/L (135-146); ABG TCO2 25 mmol/L (19-24)
[2020-07-06 11:56] LABS: ABG Base Excess -2.5 mmol/L; ABG Glucose Whole Blood 200 mg/dL (75-99); ABG HCO3 24 mmol/L (21-25); ABG Hematocrit 32 % (34.0-46.0); ABG Ionized Calcium 4.1 mg/dL (4.5-5.3); ABG PCO2 47 mmHg (35-45); ABG PH 7.32 (7.35-7.45); ABG PO2 280 mmHg (83-108); ABG Potassium Whole Blood 4.6 mmol/L (3.4-4.5); ABG Sodium Whole Blood 139 mmol/L (135-146); ABG TCO2 25 mmol/L (19-24)
[2020-07-06 12:17] LABS: ABG Lactic Acid Whole Blood 2.5 mmol/L (0.5-1.6)
[2020-07-06 12:43] LABS: ABG Base Excess -2.7 mmol/L; ABG Glucose Whole Blood 169 mg/dL (75-99); ABG HCO3 23 mmol/L (21-25); ABG Hematocrit 34 % (34.0-46.0); ABG PCO2 42 mmHg (35-45); ABG PH 7.35 (7.35-7.45); ABG PO2 239 mmHg (83-108); ABG Potassium Whole Blood 3.9 mmol/L (3.4-4.5); ABG Sodium Whole Blood 141 mmol/L (135-146); ABG TCO2 24 mmol/L (19-24)
[2020-07-06 13:02] LABS: ABG Lactic Acid Whole Blood 2.7 mmol/L (0.5-1.6)
[2020-07-06 14:06] LABS: Glucose,Whole Blood 150 mg/dL (75-99)
[2020-07-06] MEDS ORDERED: CALCIUM GLUCONATE 2 GM in SODIUM CHLORIDE 0.9% 100 ML IVPB PRN (14:09)
[2020-07-06] MEDS ORDERED: BENZOCAINE/MENTHOL LOZENG 1 EACH LOZENGE MUCOUS MEM PRN (14:09)
[2020-07-06] MEDS ORDERED: Potassium Replacement Protocol 1 EACH MISC MISCELLANE PRN (14:09)
[2020-07-06] MEDS ORDERED: Magnesium Replacement Protocol 1 EACH MISC MISCELLANE PRN (14:09)
[2020-07-06] MEDS ORDERED: hydrALAZINE HCL 20 MG/ML 1 ML VIAL IVP PRN (14:09)
[2020-07-06] MEDS ORDERED: DEXTROSE 5% IN WATER 100 ML with AMIODARONE 150 MG IV PRN (14:09)
[2020-07-06] MEDS ORDERED: IPRATROPIUM-ALBUTEROL 3 ML NEB INHALATION PRN (14:09)
[2020-07-06] MEDS ORDERED: Phosphorus Replacement Protoco 1 EACH MISC MISCELLANE PRN (14:09)
[2020-07-06] MEDS ORDERED: AMIODARONE 450 MG in DEXTROSE 5% IN WATER 250 ML IV PRN ×2 (14:09)
[2020-07-06] MEDS ORDERED: METOCLOPRAMIDE 5 MG/ML 2 ML VIAL IVP PRN (14:09)
[2020-07-06] MEDS ORDERED: AMIODARONE 360 MG in DEXTROSE 5% IN WATER 200 ML IV PRN ×2 (14:09)
[2020-07-06] MEDS ORDERED: ONDANSETRON 4 MG/2 ML VIAL IVP PRN (14:09)
[2020-07-06 14:34] LABS: ABG HCO3 24 mmol/L (21-25); ABG Oxygen Saturation 98.9 % (94-97); ABG PCO2 46 mmHg (35-45); ABG PH 7.33 (7.35-7.45); ABG PO2 141 mmHg (83-108); ABG TCO2 25 mmol/L (19-24)
--- NOTE | 2020-07-06 14:36 | XR ---
EXAMINATION TYPE: XR chest 1V portable DATE OF EXAM: 07/06/2020 COMPARISON: 07/01/2020 HISTORY: Post cardiac surgery TECHNIQUE: Single frontal view of the chest is obtained. FINDINGS: Badger-Aurea catheter seen with the tip overlying the left cardiac border likely within the l eft pulmonary artery correlate clinically. ET tube 2.4 cm above airam and NG tube is seen to level o f GE junction. Suggestion of an epicardial lead with mediastinal drain and chest tube on the left. No sizable pneumothorax. Basilar consolidation and tiny effusion noted. Postsurgical changes are seen i n the heart size is normal. IMPRESSION: 1. Correlate for positioning Badger-Aurea catheter 2. NG tube is somewhat proximal likely at the level of the GE junction and could be advanced. 3. Postoperative changes with basilar postoperative atelectasis favored over infiltrate correlate cli nically.
[2020-07-06 14:37] LABS: Allen Test Performed? No
[2020-07-06] MEDS ORDERED: DEXMEDETOMIDINE/0.9% NACL(PMX) 400 MCG in EMPTY BAG 1 BAG IV SCH (14:45)
[2020-07-06] MEDS ORDERED: NITROGLYCERIN-D5W PMX 50 MG in DEXTROSE/WATER 1 250ML.BAG IV SCH (14:45)
[2020-07-06] MEDS ORDERED: CLEVIDIPINE BUTYRATE 25 MG in EMPTY BAG 1 BAG IV SCH (14:45)
[2020-07-06 14:57] LABS: Basophils % (A) 0 %; Eosinophils % (A) 0 %; Lymphocytes # (A) 0.7 k/uL (1.0-4.8); Lymphocytes % (A) 7 %; MCH 30.3 pg (25.0-35.0); MCV 84.1 fL (80.0-100.0); Monocytes # (A) 0.8 k/uL (0-1.0); Monocytes % (A) 8 %; Neutrophils # (A) 8.6 k/uL (1.3-7.7); Neutrophils % (A) 84 %; Platelet Count 149 k/uL (150-450); RBC 3.92 m/uL (4.30-5.90); RDW 13.9 % (11.5-15.5); WBC 10.2 k/uL (3.8-10.6)
[2020-07-06 14:58] LABS: Ionized Calcium 4.6 mg/dL (4.5-5.3)
[2020-07-06] MEDS ORDERED: NOREPINEPHRINE 4 MG in SODIUM CHLORIDE 0.9% 250 ML IV SCH (15:00)
[2020-07-06] MEDS ORDERED: INSULIN REGULAR 100 UNIT in SODIUM CHLORIDE 0.9% 100 ML IV SCH (15:00)
[2020-07-06 15:01] LABS: HGB 11.9 gm/dL (13.0-17.5)
[2020-07-06] MEDS: ALBUMIN HUMAN 5% 250 ML in EMPTY BAG 1 BAG IVPB PRN (15:05)
[2020-07-06 15:10] LABS: ALT 16 U/L (4-49); AST 35 U/L (17-59); African American GFR (CKD) >90 (>60 ml/min/1.73 sqM); Alkaline Phosphatase 67 U/L (38-126); Anion Gap 5 mmol/L; Blood Urea Nitrogen 18 mg/dL (9-20); Calcium 7.6 mg/dL (8.4-10.2); Carbon Dioxide 24 mmol/L (22-30); Chloride 111 mmol/L (98-107); Glucose 138 mg/dL (74-99); Magnesium 2.4 mg/dL (1.6-2.3); Non-African American GFR(CKD) >90 (>60 ml/min/1.73 sqM); Sodium 140 mmol/L (137-145); Total Protein 4.7 g/dL (6.3-8.2)
[2020-07-06] MEDS: LACTATED RINGERS 1,000 ML IV SCH (15:19)
[2020-07-06] MEDS ORDERED: CALCIUM GLUCONATE 2 GM in SODIUM CHLORIDE 0.9% 100 ML IVPB ONE (15:20)
[2020-07-06] MEDS ORDERED: IPRATROPIUM-ALBUTEROL 3 ML NEB INHALATION SCH (16:00)
[2020-07-06] MEDS ORDERED: ceFAZolin 3 GM in SODIUM CHLORIDE 0.9% 100 ML IVPB SCH (16:00)
[2020-07-06 16:13] LABS: Glucose,Whole Blood 180 mg/dL (75-99)
[2020-07-06 16:20] LABS: INR 1.2 (<1.2); Partial Thromboplastin Time 30.9 sec (22.0-30.0)
[2020-07-06 16:32] LABS: ABG Base Excess -3.4 mmol/L; ABG HCO3 23 mmol/L (21-25); ABG Oxygen Saturation 95.8 % (94-97); ABG PCO2 49 mmHg (35-45); ABG PH 7.28 (7.35-7.45); ABG PO2 87 mmHg (83-108); ABG TCO2 25 mmol/L (19-24)
[2020-07-06 16:34] LABS: Allen Test Performed? NO
[2020-07-06] MEDS: ceFAZolin 3 GM in SODIUM CHLORIDE 0.9% 100 ML IVPB SCH ×2 (16:44→23:14)
[2020-07-06 17:15] LABS: Glucose,Whole Blood 200 mg/dL (75-99)
[2020-07-06 17:42] LABS: Basophils % (A) 0 %; Eosinophils % (A) 0 %; HCT 35.4 % (39.0-53.0); HGB 12.8 gm/dL (13.0-17.5); Lymphocytes # (A) 0.7 k/uL (1.0-4.8); Lymphocytes % (A) 5 %; MCH 30.6 pg (25.0-35.0); MCHC 36.2 g/dL (31.0-37.0); MCV 84.5 fL (80.0-100.0); Monocytes # (A) 0.7 k/uL (0-1.0); Monocytes % (A) 6 %; Neutrophils # (A) 11.3 k/uL (1.3-7.7); Neutrophils % (A) 89 %; Platelet Count 165 k/uL (150-450); RBC 4.18 m/uL (4.30-5.90); RDW 13.9 % (11.5-15.5); WBC 12.8 k/uL (3.8-10.6)
--- NOTE | 2020-07-06 17:44 | P.CNPUL ---
History of Present Illness Consult date: 07/06/20 Requesting physician: Jonel Elena Reason for consult: chest pain Chief complaint: Coronary artery disease with left main disease History of present illness: This is a 59-year-old white male patient of Dr. Apodaca, and had been complaining of a burning chest pain with moderate activities. Patient's medical history significant for hypertension, diabetes mellitus type 2, dyslipidemia, early onset heart disease in his family, BPH, osteoarthritis, patient is a lifetime nonsmoker and his . Patient underwent stress test because of chest pains, and developed ischemic changes associated with wall motion abnormalities involving the anterior wall and lateral wall. Patient had a cardiac catheterization on 07/01/2020 showing critical lesion involving the left main, moderate to severe disease involving the ostium of the small intermediate. Echocardiogram from 07/01/2020 showed low normal EF of 50-55%, no evidence of aortic stenosis or aortic regurgitation, mild TR, no evidence of pulmonary hypertension and right- sided pressure was 23.3 mmHg. Carotid ultrasound showed no evidence of hemodyna mically significant stenosis and mild to moderate atherosclerotic plaque. Was referred to cardiothoracic surgery for possibility of surgical intervention, and on 07/06/2020 patient underwent three-vessel coronary bypass grafting with HUTCHISON to LAD, SVG to the OM, and SVG to the ramus, with right leg endoscopic vein harvest, and exclusion of the left atrial appendage with 35 mm Atriclip. Patient was seen in the postoperative period in the intensive care unit, he has extubated fairly quickly after arriving to the intensive care unit, he extubated within 2 hours of OR exit time. His currently on a few liters per nasal cannula, breathing comfortably, he is awake and alert, oriented 3, following commands, hemodynamically he is stable, 1 mediastinal and left pleural chest tubes connected together, and there is a total of 160 mL of serous output since surgery, no air leak, patient received 250 mL of 5% albumin, his PA pressures 35/15, CVP is 10, CO 8.0, and a cardiac index is 3.3. His total EBL was 2 L intraoperatively, and patient received Cell Saver crystalloids and 5% albumin, currently hemodynamically stable, he is on 0.9 normal seen at a rate of 50 ML per hour, and nitroglycerin drip is at 5 mics per kilo per minute. Review of Systems All systems: negative Constitutional: Denies chills, Denies fever Eyes: denies blurred vision, denies pain Ears, nose, mouth and throat: Denies headache, Denies sore throat Cardiovascular: Reports chest pain, Reports decreased exercise tolerance, Denies shortness of breath Respiratory: Reports dyspnea, Denies cough Gastrointestinal: Denies abdominal pain, Denies diarrhea, Denies nausea, Denies vomiting Musculoskeletal: Denies myalgias Integumentary: Denies pruritus, Denies rash Neurological: Denies numbness, Denies weakness Psychiatric: Denies anxiety, Denies depression Endocrine: Denies fatigue, Denies weight change Past Medical History Past Medical History: Hyperlipidemia, Osteoarthritis (OA), Prostate Disorder Additional Past Medical History / Comment(s): Hypercholesterolemia History of Any Multi-Drug Resistant Organisms: None Reported Past Surgical History: Heart Catheterization, Joint Replacement Additional Past Surgical History / Comment(s): right hip replacement Past Anesthesia/Blood Transfusion Reactions: No Reported Reaction Smoking Status: Never smoker - Past Family History Mother Family Medical History: Cancer, Hypertension Additional Family Medical History / Comment(s): bone Father Family Medical History: Cancer, Congestive Heart Failure (CHF) Additional Family Medical History / Comment(s): bladder and skin Brother(s) Family Medical History: Cancer, Coronary Artery Disease (CAD) Additional Family Medical History / Comment(s): skin Medications and Allergies Home Medications Medication Instructions Recorded Confirmed Type Aspirin 81 mg PO DAILY #30 chewable 06/17/20 07/06/20 Rx Metoprolol Tartrate 25 mg PO BID #60 tab 06/17/20 07/06/20 Rx Nitroglycerin Sl Tabs [Nitrostat] 0.4 mg SUBLINGUAL Q5M PRN #25 tab 06/17/20 07/06/20 Rx Tamsulosin [Flomax] 0.4 mg PO HS 06/30/20 07/06/20 History Ubidecarenone [Co Q-10] 100 mg PO HS 06/30/20 07/06/20 History Atorvastatin [Lipitor] 10 mg PO HS 07/01/20 07/06/20 History Allergies Allergy/AdvReac Type Severity Reaction Status Date / Time Penicillins Allergy Unknown Verified 07/06/20 05:54 Childhood Physical Exam Vitals: Vital Signs Temp Pulse Pulse Resp BP BP Pulse Ox 07/06/20 16:13 80 06/01/21 16:07 87 07/06/20 06:00 117/75 07/06/20 05:58 98.2 F 76 18 126/77 97 Intake and Output 07/06/20 07/06/20 07/06/20 06:59 14:59 22:59 Intake Total 100 6 Output Total 2850 Balance 100 -2844 Intake: IV 100 6 Output: Urine 850 Estimated Blood Loss 1999 Other: Weight 124.1 kg GENERAL EXAM: Alert, very pleasant, 59-year-old white male, on 3 L of oxygen, extubated comfortable in no apparent distress. HEAD: Normocephalic/atraumatic. EYES: Normal reaction of pupils, equal size. Conjunctiva pink, sclera white. NOSE: Clear with pink turbinates. THROAT: No erythema or exudates. NECK: No masses, no JVD, no thyroid enlargement, no adenopathy. CHEST: No chest wall deformity. Symmetrical expansion. Distal incision is clean dry and intact, 1 mediastinal and left pleural chest tubes connected tog ether, with a total of 160 mL of sanguinous output in the Pleur-evac, which is connected to wall suction, no evidence of air leak. Epicardial AV wires to external pacemaker box with a backup rate, intrinsic rhythm is sinus rhythm LUNGS: Equal air entry with no crackles, wheeze, rhonchi or dullness. CVS: Regular rate and rhythm, normal S1 and S2, no gallops, no murmurs, no rubs ABDOMEN: Soft, nontender. No hepatosplenomegaly, normal bowel sounds, no guarding or rigidity. EXTREMITIES: No clubbing, no edema, no cyanosis, 2+ pulses and upper and lower extremities. MUSCULOSKELETAL: Muscle strength and tone normal. Right leg interrupted incision covered with a surgical dressing and Bridger wrap SPINE: No scoliosis or deformity SKIN: No rashes CENTRAL NERVOUS SYSTEM: Alert and oriented -3. No focal deficits, tone is normal in all 4 extremities. PSYCHIATRIC: Alert and oriented -3. Appropriate affect. Intact judgment and insight. Results - Laboratory Findings CBC and BMP: 07/06/20 14:00 07/06/20 14:00 ABG ABG pH 7.28 (7.35-7.45) L 07/06/20 16:30 ABG pCO2 49 mmHg (35-45) H 07/06/20 16:30 ABG pO2 87 mmHg (83-108) 07/06/20 16:30 ABG O2 Saturation 95.8 % (94-97) 07/06/20 16:30 PT/INR, D-dimer PT 12.0 sec (9.0-12.0) 07/06/20 14:00 INR 1.2 (<1.2) H 07/06/20 14:00 Abnormal lab findings: Abnormal Labs 07/02/20 07/06/20 07/06/20 07:04 08:24 09:51 RBC Hgb Hct Plt Count Neutrophils # Lymphocytes # INR APTT ABG pH 7.27 L ABG pCO2 53 H ABG pO2 353 H 161 H ABG Total CO2 27 H 26 H ABG O2 Saturation 100.0 H 99.2 H ABG Hematocrit ABG Potassium ABG Ionized Calcium ABG Glucose 110 H 149 H ABG Lactic Acid Hemoglobin 12.8 L Chloride Creatinine Glucose POC Glucose (mg/dL) Calcium Magnesium Total Protein Albumin Arterial Blood Potassium Arterial Blood Glucose 110 H 149 H Crossmatch See Detail 07/06/20 07/06/20 07/06/20 10:47 11:19 11:58 RBC Hgb Hct Plt Count Neutrophils # Lymphocytes # INR APTT ABG pH 7.32 L ABG pCO2 47 H ABG pO2 303 H 237 H 280 H ABG Total CO2 25 H 25 H ABG O2 Saturation 100.0 H 100.0 H 100.0 H ABG Hematocrit 33 L 31 L 32 L ABG Potassium 4.6 H 4.8 H 4.6 H ABG Ionized Calcium 4.0 L 4.1 L 4.1 L ABG Glucose 168 H 195 H 200 H ABG Lactic Acid 2.0 H 2.5 H* Hemoglobin 10.9 L 10.2 L 10.5 L Chloride Creatinine Glucose POC Glucose (mg/dL) Calcium Magnesium Total Protein Albumin Arterial Blood Potassium 4.6 H 4.8 H 4.6 H Arterial Blood Glucose 168 H 195 H 200 H Crossmatch 07/06/20 07/06/20 07/06/20 12:45 14:00 14:00 RBC 3.92 L Hgb 11.9 L D Hct 33.0 L Plt Count 149 L Neutrophils # 8.6 H Lymphocytes # 0.7 L INR 1.2 H APTT 30.9 H ABG pH ABG pCO2 ABG pO2 239 H ABG Total CO2 ABG O2 Saturation 100.0 H ABG Hematocrit ABG Potassium ABG Ionized Calcium 4.0 L ABG Glucose 169 H ABG Lactic Acid 2.7 H* Hemoglobin 11.0 L Chloride Creatinine Glucose POC Glucose (mg/dL) Calcium Magnesium Total Protein Albumin Arterial Blood Potassium Arterial Blood Glucose 169 H Crossmatch 07/06/20 07/06/20 07/06/20 14:00 14:04 14:28 RBC Hgb Hct Plt Count Neutrophils # Lymphocytes # INR APTT ABG pH 7.33 L ABG pCO2 46 H ABG pO2 141 H ABG Total CO2 25 H ABG O2 Saturation 98.9 H ABG Hematocrit ABG Potassium ABG Ionized Calcium ABG Glucose ABG Lactic Acid Hemoglobin Chloride 111 H Creatinine 0.60 L Glucose 138 H POC Glucose (mg/dL) 150 H Calcium 7.6 L Magnesium 2.4 H Total Protein 4.7 L Albumin 3.0 L Arterial Blood Potassium Arterial Blood Glucose Crossmatch 07/06/20 07/06/20 16:11 16:30 RBC Hgb Hct Plt Count Neutrophils # Lymphocytes # INR APTT ABG pH 7.28 L ABG pCO2 49 H ABG pO2 ABG Total CO2 25 H ABG O2 Saturation ABG Hematocrit ABG Potassium ABG Ionized Calcium ABG Glucose ABG Lactic Acid Hemoglobin Chloride Creatinine Glucose POC Glucose (mg/dL) 180 H Calcium Magnesium Total Protein Albumin Arterial Blood Potassium Arterial Blood Glucose Crossmatch - Diagnostic Findings Chest x-ray: report reviewed, image reviewed Additional studies: EKG reviewed Assessment and Plan Plan: Assessment: #1. Symptomatic coronary artery disease with left main stenosis, status post three-vessel coronary artery bypass grafting with the HUTCHISON to the LAD, SVG to the OM and the ramus, right leg endoscopic vein harvest, and left atrial appendage exclusion, postoperative day #0 on 07/06/2020 #2. Routine postoperative ventilator management, and patient extubated within 2 hours of OR exit time on postoperative day #0 on 07/06/2020 #3. Lifetime nonsmoker, and preop FEV1 was 2.9 L or 62% of predicted, FVC of 3.53 L or 57% of predicted, FEV1 to FVC ratio of 109%, consistent with moderate restrictive pattern #4. Hypertension #5. Diabetes mellitus #6. Dyslipidemia #7. Osteoarthritis #8. Benign prostatic hypertrophy #9. History of early onset ischemic heart disease in the family Plan: Patient has been successfully weaned and extubated Tolerating extubation quite well so far Encourage deep breathing and coughing Provide incentive spirometer Hemodynamically he is stable GI and DVT prophylaxis per CT surgery Breathing treatments 4 times a day and when necessary Follow-up labs and chest x-ray later on this evening and in the morning We'll continue to closely follow I performed a history & physical examination of the patient and discussed their management with my nurse practitioner, La Tate. I reviewed the nurse practitioner's note and agree with the documented findings and plan of care. Lung sounds are positive for diminished breath sounds. The findings and the impression was discussed with the patient. I attest to the documentation by the nurse practitioner. Time with Patient: Greater than 30
[2020-07-06 18:28] LABS: Glucose,Whole Blood 187 mg/dL (75-99)
[2020-07-06] MEDS: HEPARIN SODIUM,PORCINE/PF 5,000 UNIT/0.5 ML SYRINGE SQ SCH ×2 (18:38→23:14)
[2020-07-06] MEDS: ACETAMINOPHEN IV (For NPO) 1,000 MG in EMPTY BAG 1 BAG IVPB SCH ×2 (18:39→23:45)
[2020-07-06] MEDS: KETOROLAC 15 MG/ML 1 ML VIAL IVP SCH ×2 (18:39→23:13)
[2020-07-06 19:16] LABS: Glucose,Whole Blood 172 mg/dL (75-99)
[2020-07-06] MEDS: IPRATROPIUM-ALBUTEROL 3 ML NEB INHALATION SCH (19:59)
[2020-07-06 20:01] LABS: Basophils % (A) 0 %; Eosinophils % (A) 0 %; HCT 35.4 % (39.0-53.0); HGB 12.7 gm/dL (13.0-17.5); Lymphocytes # (A) 0.4 k/uL (1.0-4.8); Lymphocytes % (A) 3 %; MCH 30.3 pg (25.0-35.0); MCHC 35.9 g/dL (31.0-37.0); MCV 84.3 fL (80.0-100.0); Mean Platelet Volume 7.2; Monocytes # (A) 0.7 k/uL (0-1.0); Monocytes % (A) 6 %; Neutrophils # (A) 10.6 k/uL (1.3-7.7); Neutrophils % (A) 90 %; Platelet Count 160 k/uL (150-450); RDW 13.8 % (11.5-15.5); WBC 11.8 k/uL (3.8-10.6)
[2020-07-06 20:15] LABS: Glucose,Whole Blood 158 mg/dL (75-99)
[2020-07-06 21:18] LABS: Glucose,Whole Blood 150 mg/dL (75-99)
[2020-07-06 22:33] LABS: Glucose,Whole Blood 160 mg/dL (75-99)
[2020-07-06 23:52] LABS: Glucose,Whole Blood 162 mg/dL (75-99)
[2020-07-07 01:28] LABS: Glucose,Whole Blood 153 mg/dL (75-99)
[2020-07-07] MEDS ORDERED: HYDROcodone/APAP 5-325MG 1 EACH TAB PO PRN (01:32)
[2020-07-07 03:06] LABS: Glucose,Whole Blood 141 mg/dL (75-99)
[2020-07-07 03:20] LABS: Basophils % (A) 0 %; Eosinophils % (A) 0 %; HCT 34.7 % (39.0-53.0); HGB 11.6 gm/dL (13.0-17.5); Lymphocytes # (A) 0.6 k/uL (1.0-4.8); Lymphocytes % (A) 5 %; MCH 28.4 pg (25.0-35.0); MCHC 33.6 g/dL (31.0-37.0); MCV 84.4 fL (80.0-100.0); Mean Platelet Volume 7.5; Monocytes % (A) 9 %; Neutrophils # (A) 10.3 k/uL (1.3-7.7); Neutrophils % (A) 86 %; Platelet Count 162 k/uL (150-450); RBC 4.11 m/uL (4.30-5.90); RDW 14.4 % (11.5-15.5)
[2020-07-07 03:30] LABS: Ionized Calcium 4.7 mg/dL (4.5-5.3)
[2020-07-07 03:43] LABS: ALT 16 U/L (4-49); AST 49 U/L (17-59); African American GFR (CKD) >90 (>60 ml/min/1.73 sqM); Albumin 3.1 g/dL (3.5-5.0); Alkaline Phosphatase 62 U/L (38-126); Anion Gap 3 mmol/L; Blood Urea Nitrogen 16 mg/dL (9-20); Carbon Dioxide 24 mmol/L (22-30); Chloride 108 mmol/L (98-107); Glucose 136 mg/dL (74-99); Magnesium 2.1 mg/dL (1.6-2.3); Non-African American GFR(CKD) >90 (>60 ml/min/1.73 sqM); Sodium 135 mmol/L (137-145); Total Bilirubin 0.6 mg/dL (0.2-1.3)
[2020-07-07 04:34] LABS: Glucose,Whole Blood 145 mg/dL (75-99)
[2020-07-07] MEDS: HYDROcodone/APAP 5-325MG 1 EACH TAB PO PRN (04:53)
[2020-07-07] MEDS: KETOROLAC 15 MG/ML 1 ML VIAL IVP SCH ×4 (05:14→23:03)
[2020-07-07 06:08] LABS: Glucose,Whole Blood 131 mg/dL (75-99)
[2020-07-07] MEDS: ALBUMIN HUMAN 5% 250 ML in EMPTY BAG 1 BAG IVPB PRN (06:15)
[2020-07-07 07:09] LABS: Glucose,Whole Blood 144 mg/dL (75-99)
[2020-07-07] MEDS: IPRATROPIUM-ALBUTEROL 3 ML NEB INHALATION SCH ×4 (07:31→21:32)
--- NOTE | 2020-07-07 07:42 | OP ---
OPERATIVE REPORT DATE OF SURGERY: 07/06/2020. PREOP DIAGNOSIS: Coronary artery disease. POSTOPERATIVE DIAGNOSIS: Coronary artery disease. PROCEDURE PERFORMED: 1. Coronary bypass grafting x 3 vessels (left internal mammary artery to left anterior descending artery, saphenous vein graft to ramus artery, saphenous vein graft to obtuse marginal artery). 2. Endoscopic harvest right greater saphenous vein. 3. Ligation of left atrial appendage using 35 mm Atriclip. 4. Epiaortic ultrasound. 5. Transesophageal echocardiogram. 6. Excision of chest wall soft tissue mass. SURGEON: Jonel Elena M.D. MANAGER PEDIATRIC: 1. SUMAN Cristina. 2. Tyshawn Rubio NP. 3. SUMAN Hollis. ANESTHESIA: General. SPECIMEN: Excision chest mass. COMPLICATION: None. INDICATION: The patient is a 59-year-old male with a past medical history significant for hyperlipidemia, osteoarthritis, hypercholesterolemia, and BPH who reports a burning sensation in his throat with activity. He also reports some associated shortness of breath. Workup revealed a significant distal left main coronary artery lesion. Coronary artery bypass was recommended. The risks, benefits, and alternatives of the procedure were discussed with the patient and his . All of their questions were answered. Consent was obtained. FINDINGS: The left internal mammary artery was a good conduit with brisk flow. The saphenous vein was a good conduit. The LAD measured 1.5 mm. The ramus artery measured 1.5 mm. The obtuse marginal artery measured 1.3 mm. There was a mass in the distal portion of the sternal wound, which was consistent with lipoma. PROCEDURE DETAILS: The patient was taken to the operating room and placed supine on the operating table. After the induction of general anesthesia, he was prepped and draped in the usual sterile fashion. Preoperative transesophageal echocardiogram confirmed a preserved ejection fraction with trace mitral regurgitation. Of note, there was a soft tissue mass noted in the distal portion of his sternal wound. The patient does have a history of multiple lipomas and this soft tissue mass was fairly consistent with lipoma. The fatty mass was excised and sent to pathology. The capsule was excised as well. A median sternotomy was performed. The left internal mammary artery was harvested in the standard fashion taking care to clip all branches. Intravenous heparin was administered. The vessel was transected distally revealing brisk flow. Simultaneously, greater saphenous vein was harvested from the right lower extremity using endoscopic technique. All branches were tied. Both the mammary artery and saphenous vein were good conduits. A pericardial cradle was created. The ascending aorta was palpated. There was no significant calcific plaque noted. Epiaortic ultrasound was then performed on the ascending aorta. Again no calcific plaque or atheromatous disease was identified. An arterial cannula was placed in the distal ascending aorta. A venous cannula was placed through the right atrial appendage and directed into the IVC. Both antegrade and retrograde catheters were placed as well. The patient was then placed on cardiopulmonary bypass with good decompression of the heart. The aortic cross- clamp was applied. Cold blood potassium cardioplegia was delivered in both antegrade and retrograde fashion to achieve arrest of the heart. Of note, cardioplegia was delivered every 15- 20 minutes while the patient remained under crossclamp. I began by identifying the left atrial appendage. A 35 mm AtriClip was placed across its base to ensure ligation. Next, attention was turned to the lateral wall. Both the ramus artery and obtuse marginal artery were identified. The obtuse marginal artery was dissected free. A small arteriotomy was created. This vessel accepted a 1.0 mm probe. Using saphenous vein in a reverse fashion, an end-to-side anastomosis was created. This was performed using running 7-0 Prolene suture. The graft was hemostatic and had great flow. Next, attention was turned to the ramus artery. It too was dissected free. A small arteriotomy was created. This vessel accepted a 1.5 mm probe. Using saphenous vein in a reverse fashion, an end-to-side anastomosis was created. This was performed using running 7-0 Prolene suture. The graft was hemostatic and had great flow. Finally, attention was turned to the anterior wall. The left anterior descending was dissected free in its midportion. A small arteriotomy was created. This vessel accepted a 1.5 mm probe both proximally and distally. Using the left internal mammary artery, an end-to-side anastomosis created. This was performed running 8-0 Prolene suture. The graft was hemostatic. The mammary pedicle was then tacked down to the anterior surface of the heart. Attention was then turned to the proximal anastomoses. These were performed in end-to- side fashion using running 6-0 Prolene sutures. One liter of warm blood was delivered in retrograde fashion. Both lidocaine and magnesium were administered as well. The aortic cross- clamp was removed. Both vein grafts were de-aired in the standard fashion. Distal anastomoses were inspected and appeared to be hemostatic. Temporary atrial and ventricular pacing wires were placed and brought through the skin. The patient was then weaned off the cardiopulmonary bypass. He with the addition of low-dose Levophed. Followup transesophageal echocardiogram confirmed good left ventricular ejection fraction and no change in his trace mitral regurgitation. Protamine was administered. There were no adverse reactions. The remaining cannulas were then removed. The mediastinum was then copiously irrigated with warm saline solution. Again, all surgical sites were inspected for bleeding and appeared to be hemostatic. Soft tissues were reapproximated over the ascending aorta as well as over the apex of the heart. A straight 32-Georgian chest tube was placed and directed into the left pleural space. A straight 36- Georgian chest tube was placed and directed into the mediastinum. These were both secured to the skin using sutures. The sternum was then reapproximated using the Woodruff cable system. The cables were placed in a [id number] fashion. At the completion of closure, the sternum was well aligned. The remainder of the wound was closed in multiple layers. Sterile dressing was applied. The patient appeared to tolerate the procedure well. There were no immediate complications. He returned to the ICU in critical but stable condition. He did not receive any intraoperative blood products. SAM / KYLE: [id number] / MTDD
--- NOTE | 2020-07-07 07:52 | XR ---
EXAMINATION TYPE: XR chest 1V portable DATE OF EXAM: 07/07/2020 COMPARISON: 07/06/2020 HISTORY: Post cardiac surgery TECHNIQUE: Single frontal view of the chest is obtained. FINDINGS: Status post median sternotomy. Dickinson-Aurea catheter is seen with its tip projecting over the left heart. Correlate clinically. Endotracheal tube has been removed. Enteric catheter has been move d. Left-sided chest tube is seen. Overlying leads. No pneumothorax. Mild bibasilar airspace opacities and tiny effusions are stable. IMPRESSION: 1. Correlate for positioning Dickinson-Aurea catheter 2.. Enteric catheter and endotracheal tube have been removed 3. Postoperative changes with bibasilar airspace opacities suggestive of atelectasis or pneumonitis w ith small pleural effusions.
[2020-07-07] MEDS: HEPARIN SODIUM,PORCINE/PF 5,000 UNIT/0.5 ML SYRINGE SQ SCH ×3 (08:41→23:03)
[2020-07-07] MEDS: ASPIRIN 325 MG TAB PO SCH (08:41)
[2020-07-07] MEDS: ATORVASTATIN 40 MG TAB PO SCH (08:41)
[2020-07-07] MEDS: METOPROLOL TARTRATE 25 MG TAB PO SCH ×2 (08:41→21:06)
[2020-07-07] MEDS: CLOPIDOGREL 75 MG TAB PO SCH (08:42)
[2020-07-07] MEDS: ceFAZolin 3 GM in SODIUM CHLORIDE 0.9% 100 ML IVPB SCH (08:42)
--- NOTE | 2020-07-07 08:58 | CONS ---
CONSULTATION Mr. Gan is 59-year-old male who underwent coronary artery bypass grafting yesterday. The patient has been followed by Dr. Oh on a regular basis and has been having some episode of chest burning. Underwent a stress test that revealed evidence of ST-segment changes as well as segmental wall motion abnormality. He underwent cardiac catheterization and was found to have significant left main disease and underwent coronary artery bypass grafting yesterday. He is extubated, sitting up in the chair, feeling stable. He has mild soreness in the chest. He is in sinus mechanism. The patient had an echocardiogram during his last admission at the time of the cardiac catheterization that revealed ejection fraction of 50% to 55%. with mild tricuspid regurgitation and no evidence of pulmonary hypertension. Hemodynamically, he is stable. He continued to be in sinus mechanism. He has a history of hypertension and hyperlipidemia. MEDICATION: At this time include aspirin once a day, Lipitor 40 mg daily and metoprolol tartrate 12.5 mg twice a day. PHYSICAL EXAMINATION: Blood pressure 120/50 with a heart rate in the 90s and low 100s. LUNGS: Lungs are clear with no wheezes or rales. HEART: Regular rhythm S1, S2. No S3, plus rub, no gallop. ABDOMEN: Soft, nontender, positive bowel sounds. EXTREMITIES: No edema. LAB DATA: Lab data revealed BUN and creatinine of 16 and 0.6, potassium 4.0, hemoglobin 11.6. IMPRESSION: 1. Status post coronary artery bypass grafting. 2. Hypertension. 3. Hyperlipidemia. RECOMMENDATION: We will continue present therapy. Continue incentive spirometry. Increase his level of activity. Depending on his progress further recommendation will be made. MMODL / IJN: [id number] /
[2020-07-07] MEDS ORDERED: PANTOPRAZOLE 40 MG/10 ML VIAL IVP SCH (09:00)
[2020-07-07] MEDS ORDERED: MAGNESIUM HYDROXIDE 2,400 MG/10 ML CUP PO PRN (09:00)
[2020-07-07] MEDS ORDERED: METOPROLOL TARTRATE 12.5 MG TAB PO SCH (09:00)
[2020-07-07] MEDS ORDERED: bisacodyL 10 MG SUPP RECTAL PRN (09:00)
[2020-07-07 09:10] LABS: Glucose,Whole Blood 117 mg/dL (75-99)
[2020-07-07 09:58] VITALS: BMI 34.5
[2020-07-07 11:09] LABS: Glucose,Whole Blood 108 mg/dL (75-99)
[2020-07-07] MEDS: LACTATED RINGERS 1,000 ML IV SCH (11:24)
--- NOTE | 2020-07-07 12:42 | P.PN ---
Subjective Progress Note Date: 07/07/20 Principal diagnosis: Status post CABG postoperative day #1. This is a 59-year-old white male patient of Dr. Apodaca, and had been complaining of a burning chest pain with moderate activities. Patient's medical history significant for hypertension, diabetes mellitus type 2, dyslipidemia, early onset heart disease in his family, BPH, osteoarthritis, patient is a lifetime nonsmoker and his . Patient underwent stress test because of chest pains, and developed ischemic changes associated with wall motion abnormalities involving the anterior wall and lateral wall. Patient had a cardiac catheterization on 07/01/2020 showing critical lesion involving the left main, moderate to severe disease involving the ostium of the small intermediate. Echocardiogram from 07/01/2020 showed low normal EF of 50-55%, no evidence of aortic stenosis or aortic regurgitation, mild TR, no evidence of pulmonary hypertension and right- sided pressure was 23.3 mmHg. Carotid ultrasound showed no evidence of hemodynamically significant stenosis and mild to moderate atherosclerotic plaque. Was referred to cardiothoracic surgery for possibility of surgical intervention, and on 07/06/2020 patient underwent three-vessel coronary bypass grafting with HUTCHISON to LAD, SVG to the OM, and SVG to the ramus, with right leg endoscopic vein harvest, and exclusion of the left atrial appendage with 35 mm Atriclip. Patient was seen in the postoperative period in the intensive care unit, he has extubated fairly quickly after arriving to the intensive care unit, he extubated within 2 hours of OR exit time. His currently on a few liters per nasal cannula, breathing comfortably, he is awake and alert, oriented 3, following commands, hemodynamically he is stable, 1 mediastinal and left pleural chest tubes connected together, and there is a total of 160 mL of serous output since surgery, no air leak, patient received 250 mL of 5% albumin, his PA pressures 35/15, CVP is 10, CO 8.0, and a cardiac index is 3.3. His total EBL was 2 L intraoperatively, and patient received Cell Saver crystalloids and 5% albumin, currently hemodynamically stable, he is on 0.9 normal seen at a rate of 50 ML per hour, and nitroglycerin drip is at 5 mics per kilo per minute. Patient was reevaluated today on 07/07/2020, remains in the ICU, patient is status post CABG, had three-vessel bypass, extubated yesterday within 2 hours after he arrived to the ICU. He is on 2 L nasal cannula with O2 sat showed 97%. He is only on insulin drip at 2.5 units per hour, not requiring any inotropes and not requiring any pressors. His cardiac output is 7.7 cardiac index is 3 his chest tube drained about 550 ML serosanguineous fluid in the last 24 hours. Ration is doing well with incentive spirometry, achieving over thousand cc. Chest x-ray showed minimal basilar atelectasis. No evidence of congestive heart failure. BC is relatively normal hemoglobin is 11.6. Basic metabolic profile is normal, renal profile is normal Objective - Vital Signs Vital signs: Vital Signs Temp 98.3 F 07/07/20 08:00 Pulse 86 07/07/20 11:30 Resp 17 07/07/20 08:00 BP 104/58 07/07/20 08:00 Pulse Ox 95 07/07/20 08:00 Intake & Output 07/06/20 07/07/20 07/07/20 18:59 06:59 18:59 Intake Total 326 2227.557 159.852 Output Total 3225 1245 130 Balance -2899 982.557 29.852 Weight 128.8 kg 128.8 kg Intake: IV 326 1119 158 0.9 200 600 100 Albumin Human 5% 250 ml 250 In Empty Bag 1 bag @ 250 mls/hr IVPB Q1HR PRN Rx#: [id number] CO/CI 120 170 40 Pressure bag 99 18 Intake, IV Titration 28.557 1.852 Amount Insulin Regular 100 unit 28.557 1.852 In Sodium Chloride 0.9% 100 ml @ Per Protocol IV .Q0M [facility] Rx#:[id number] Oral 540 Blood Product 540 Output: Chest Tube Drainage 150 390 20 Chest Tube Left Pleural/ 150 390 20 Mediastinal Urine 1075 855 110 Estimated Blood Loss 1999 Other: Voiding Method Indwelling Catheter Indwelling Catheter ABP, PAP, CO, CI - Last Documented Arterial Blood Pressure 121/50 Pulmonary Artery Pressure 23/8 Cardiac Output 7.7 Cardiac Index 3 - Exam Physical Exam revealed a 59-year-old white male in no distress. On 2 L nasal cannula. Head: Atraumatic, normocephalic. HEENT:[Neck is supple.] [No neck masses.] [No thyromegaly.] [No JVD.] Chest: [Symmetrical chest expansion, diminished breath sounds at the bases no crackles or rhonchi or wheezes Cardiac Exam: [Normal S1 and S2, no S3 gallop, no murmur.] Abdomen: [Soft, nontender, no megaly, no rebound, no guarding, normal bowel sounds.] Extremities: [No clubbing, no edema, no cyanosis.] Neurological Exam: Alert and oriented 3. [No focal neurologic deficit.] Psychiatric: Normal mood, affect normal mental status examination. Musculoskeletal: No deformities noted limitation range of motion. - Labs CBC & Chem 7: 07/07/20 03:05 07/07/20 03:05 Labs: Abnormal Lab Results - Last 24 Hours (Table) 07/02/20 07/06/20 07/06/20 Range/Units 07:04 12:45 14:00 WBC (3.8-10.6) k/uL RBC 3.92 L (4.30-5.90) m/uL Hgb 11.9 L D (13.0-17.5) gm/dL Hct 33.0 L (39.0-53.0) % Plt Count 149 L (150-450) k/uL Neutrophils # 8.6 H (1.3-7.7) k/uL Lymphocytes # 0.7 L (1.0-4.8) k/uL INR (<1.2) APTT (22.0-30.0) sec ABG pH (7.35-7.45) ABG pCO2 (35-45) mmHg ABG pO2 239 H (83-108) mmHg ABG Total CO2 (19-24) mmol/L ABG O2 Saturation 100.0 H (94-97) % ABG Ionized Calcium 4.0 L (4.5-5.3) mg/dL ABG Glucose 169 H (75-99) mg/dL ABG Lactic Acid 2.7 H* (0.5-1.6) mmol/L Hemoglobin 11.0 L (13.0-17.5) gm/dL Sodium (137-145) mmol/L Chloride (98-107) mmol/L Creatinine (0.66-1.25) mg/dL Glucose (74-99) mg/dL POC Glucose (mg/dL) (75-99) mg/dL Calcium (8.4-10.2) mg/dL Magnesium (1.6-2.3) mg/dL Total Protein (6.3-8.2) g/dL Albumin (3.5-5.0) g/dL Arterial Blood Glucose 169 H (75-99) mg/dL Crossmatch See Detail 07/06/20 07/06/20 07/06/20 Range/Units 14:00 14:00 14:04 WBC (3.8-10.6) k/uL RBC (4.30-5.90) m/uL Hgb (13.0-17.5) gm/dL Hct (39.0-53.0) % Plt Count (150-450) k/uL Neutrophils # (1.3-7.7) k/uL Lymphocytes # (1.0-4.8) k/uL INR 1.2 H (<1.2) APTT 30.9 H (22.0-30.0) sec ABG pH (7.35-7.45) ABG pCO2 (35-45) mmHg ABG pO2 (83-108) mmHg ABG Total CO2 (19-24) mmol/L ABG O2 Saturation (94-97) % ABG Ionized Calcium (4.5-5.3) mg/dL ABG Glucose (75-99) mg/dL ABG Lactic Acid (0.5-1.6) mmol/L Hemoglobin (13.0-17.5) gm/dL Sodium (137-145) mmol/L Chloride 111 H (98-107) mmol/L Creatinine 0.60 L (0.66-1.25) mg/dL Glucose 138 H (74-99) mg/dL POC Glucose (mg/dL) 150 H (75-99) mg/dL Calcium 7.6 L (8.4-10.2) mg/dL Magnesium 2.4 H (1.6-2.3) mg/dL Total Protein 4.7 L (6.3-8.2) g/dL Albumin 3.0 L (3.5-5.0) g/dL Arterial Blood Glucose (75-99) mg/dL Crossmatch 07/06/20 07/06/20 07/06/20 Range/Units 14:28 16:11 16:30 WBC (3.8-10.6) k/uL RBC (4.30-5.90) m/uL Hgb (13.0-17.5) gm/dL Hct (39.0-53.0) % Plt Count (150-450) k/uL Neutrophils # (1.3-7.7) k/uL Lymphocytes # (1.0-4.8) k/uL INR (<1.2) APTT (22.0-30.0) sec ABG pH 7.33 L 7.28 L (7.35-7.45) ABG pCO2 46 H 49 H (35-45) mmHg ABG pO2 141 H (83-108) mmHg ABG Total CO2 25 H 25 H (19-24) mmol/L ABG O2 Saturation 98.9 H (94-97) % ABG Ionized Calcium (4.5-5.3) mg/dL ABG Glucose (75-99) mg/dL ABG Lactic Acid (0.5-1.6) mmol/L Hemoglobin (13.0-17.5) gm/dL Sodium (137-145) mmol/L Chloride (98-107) mmol/L Creatinine (0.66-1.25) mg/dL Glucose (74-99) mg/dL POC Glucose (mg/dL) 180 H (75-99) mg/dL Calcium (8.4-10.2) mg/dL Magnesium (1.6-2.3) mg/dL Total Protein (6.3-8.2) g/dL Albumin (3.5-5.0) g/dL Arterial Blood Glucose (75-99) mg/dL Crossmatch 07/06/20 07/06/20 07/06/20 Range/Units 16:52 17:14 18:26 WBC 12.8 H (3.8-10.6) k/uL RBC 4.18 L (4.30-5.90) m/uL Hgb 12.8 L (13.0-17.5) gm/dL Hct 35.4 L (39.0-53.0) % Plt Count (150-450) k/uL Neutrophils # 11.3 H (1.3-7.7) k/uL Lymphocytes # 0.7 L (1.0-4.8) k/uL INR (<1.2) APTT (22.0-30.0) sec ABG pH (7.35-7.45) ABG pCO2 (35-45) mmHg ABG pO2 (83-108) mmHg ABG Total CO2 (19-24) mmol/L ABG O2 Saturation (94-97) % ABG Ionized Calcium (4.5-5.3) mg/dL ABG Glucose (75-99) mg/dL ABG Lactic Acid (0.5-1.6) mmol/L Hemoglobin (13.0-17.5) gm/dL Sodium (137-145) mmol/L Chloride (98-107) mmol/L Creatinine (0.66-1.25) mg/dL Glucose (74-99) mg/dL POC Glucose (mg/dL) 200 H 187 H (75-99) mg/dL Calcium (8.4-10.2) mg/dL Magnesium (1.6-2.3) mg/dL Total Protein (6.3-8.2) g/dL Albumin (3.5-5.0) g/dL Arterial Blood Glucose (75-99) mg/dL Crossmatch 07/06/20 07/06/20 07/06/20 Range/Units 19:14 19:45 20:14 WBC 11.8 H (3.8-10.6) k/uL RBC 4.20 L (4.30-5.90) m/uL Hgb 12.7 L (13.0-17.5) gm/dL Hct 35.4 L (39.0-53.0) % Plt Count (150-450) k/uL Neutrophils # 10.6 H (1.3-7.7) k/uL Lymphocytes # 0.4 L (1.0-4.8) k/uL INR (<1.2) APTT (22.0-30.0) sec ABG pH (7.35-7.45) ABG pCO2 (35-45) mmHg ABG pO2 (83-108) mmHg ABG Total CO2 (19-24) mmol/L ABG O2 Saturation (94-97) % ABG Ionized Calcium (4.5-5.3) mg/dL ABG Glucose (75-99) mg/dL ABG Lactic Acid (0.5-1.6) mmol/L Hemoglobin (13.0-17.5) gm/dL Sodium (137-145) mmol/L Chloride (98-107) mmol/L Creatinine (0.66-1.25) mg/dL Glucose (74-99) mg/dL POC Glucose (mg/dL) 172 H 158 H (75-99) mg/dL Calcium (8.4-10.2) mg/dL Magnesium (1.6-2.3) mg/dL Total Protein (6.3-8.2) g/dL Albumin (3.5-5.0) g/dL Arterial Blood Glucose (75-99) mg/dL Crossmatch 07/06/20 07/06/20 07/06/20 Range/Units 21:17 22:32 23:51 WBC (3.8-10.6) k/uL RBC (4.30-5.90) m/uL Hgb (13.0-17.5) gm/dL Hct (39.0-53.0) % Plt Count (150-450) k/uL Neutrophils # (1.3-7.7) k/uL Lymphocytes # (1.0-4.8) k/uL INR (<1.2) APTT (22.0-30.0) sec ABG pH (7.35-7.45) ABG pCO2 (35-45) mmHg ABG pO2 (83-108) mmHg ABG Total CO2 (19-24) mmol/L ABG O2 Saturation (94-97) % ABG Ionized Calcium (4.5-5.3) mg/dL ABG Glucose (75-99) mg/dL ABG Lactic Acid (0.5-1.6) mmol/L Hemoglobin (13.0-17.5) gm/dL Sodium (137-145) mmol/L Chloride (98-107) mmol/L Creatinine (0.66-1.25) mg/dL Glucose (74-99) mg/dL POC Glucose (mg/dL) 150 H 160 H 162 H (75-99) mg/dL Calcium (8.4-10.2) mg/dL Magnesium (1.6-2.3) mg/dL Total Protein (6.3-8.2) g/dL Albumin (3.5-5.0) g/dL Arterial Blood Glucose (75-99) mg/dL Crossmatch 07/07/20 07/07/20 07/07/20 Range/Units 01:26 03:03 03:05 WBC 12.0 H (3.8-10.6) k/uL RBC 4.11 L (4.30-5.90) m/uL Hgb 11.6 L (13.0-17.5) gm/dL Hct 34.7 L (39.0-53.0) % Plt Count (150-450) k/uL Neutrophils # 10.3 H (1.3-7.7) k/uL Lymphocytes # 0.6 L (1.0-4.8) k/uL INR (<1.2) APTT (22.0-30.0) sec ABG pH (7.35-7.45) ABG pCO2 (35-45) mmHg ABG pO2 (83-108) mmHg ABG Total CO2 (19-24) mmol/L ABG O2 Saturation (94-97) % ABG Ionized Calcium (4.5-5.3) mg/dL ABG Glucose (75-99) mg/dL ABG Lactic Acid (0.5-1.6) mmol/L Hemoglobin (13.0-17.5) gm/dL Sodium (137-145) mmol/L Chloride (98-107) mmol/L Creatinine (0.66-1.25) mg/dL Glucose (74-99) mg/dL POC Glucose (mg/dL) 153 H 141 H (75-99) mg/dL Calcium (8.4-10.2) mg/dL Magnesium (1.6-2.3) mg/dL Total Protein (6.3-8.2) g/dL Albumin (3.5-5.0) g/dL Arterial Blood Glucose (75-99) mg/dL Crossmatch 07/07/20 07/07/20 07/07/20 Range/Units 03:05 04:33 06:07 WBC (3.8-10.6) k/uL RBC (4.30-5.90) m/uL Hgb (13.0-17.5) gm/dL Hct (39.0-53.0) % Plt Count (150-450) k/uL Neutrophils # (1.3-7.7) k/uL Lymphocytes # (1.0-4.8) k/uL INR (<1.2) APTT (22.0-30.0) sec ABG pH (7.35-7.45) ABG pCO2 (35-45) mmHg ABG pO2 (83-108) mmHg ABG Total CO2 (19-24) mmol/L ABG O2 Saturation (94-97) % ABG Ionized Calcium (4.5-5.3) mg/dL ABG Glucose (75-99) mg/dL ABG Lactic Acid (0.5-1.6) mmol/L Hemoglobin (13.0-17.5) gm/dL Sodium 135 L (137-145) mmol/L Chloride 108 H (98-107) mmol/L Creatinine 0.64 L (0.66-1.25) mg/dL Glucose 136 H (74-99) mg/dL POC Glucose (mg/dL) 145 H 131 H (75-99) mg/dL Calcium 8.0 L (8.4-10.2) mg/dL Magnesium (1.6-2.3) mg/dL Total Protein 5.0 L (6.3-8.2) g/dL Albumin 3.1 L (3.5-5.0) g/dL Arterial Blood Glucose (75-99) mg/dL Crossmatch 07/07/20 07/07/20 07/07/20 Range/Units 07:08 08:59 11:08 WBC (3.8-10.6) k/uL RBC (4.30-5.90) m/uL Hgb (13.0-17.5) gm/dL Hct (39.0-53.0) % Plt Count (150-450) k/uL Neutrophils # (1.3-7.7) k/uL Lymphocytes # (1.0-4.8) k/uL INR (<1.2) APTT (22.0-30.0) sec ABG pH (7.35-7.45) ABG pCO2 (35-45) mmHg ABG pO2 (83-108) mmHg ABG Total CO2 (19-24) mmol/L ABG O2 Saturation (94-97) % ABG Ionized Calcium (4.5-5.3) mg/dL ABG Glucose (75-99) mg/dL ABG Lactic Acid (0.5-1.6) mmol/L Hemoglobin (13.0-17.5) gm/dL Sodium (137-145) mmol/L Chloride (98-107) mmol/L Creatinine (0.66-1.25) mg/dL Glucose (74-99) mg/dL POC Glucose (mg/dL) 144 H 117 H 108 H (75-99) mg/dL Calcium (8.4-10.2) mg/dL Magnesium (1.6-2.3) mg/dL Total Protein (6.3-8.2) g/dL Albumin (3.5-5.0) g/dL Arterial Blood Glucose (75-99) mg/dL Crossmatch Assessment and Plan Assessment: Impression: Status post three-vessel CABG with HUTCHISON to LAD and SVG to obtuse margin and the ramus, postoperative day #1. Benign essential hypertension Type 2 diabetes Postoperative atelectasis, expected. Dyslipidemia. Strong family history of early onset ischemic heart disease. Degenerative joint disease. Type 2 diabetes. Lifelong nonsmoker. Recommendation: Continue present treatment plan. Continue incentive spirometer. Encourage deep coughing and deep breathing and ambulation. Discontinue unnecessary catheters. Continue GI and DVT prophylaxis. Aspirin and Plavix statin and beta blockers. Follow daily labs and x-rays in the morning. We will continue to follow. Time with Patient: Less than 30
--- NOTE | 2020-07-07 12:44 | P.CONS ---
History of Present Illness - Reason for Consult Consult date: 07/07/20 - History of Present Illness 59 years old male patient of Dr. Apodaca with past medical history of coronary artery disease with left main disease, history of hypertension, , hyperlipidemia, BPH, osteoarthritis with right hip replacement, family history of early onset coronary artery disease who was evaluated for chest pain by the primary care physician and underwent cardiac cath on 07/01 suggesting critical lesion involving the left main, 70-80% involving the ostium of intermediate coronary artery. Patient was referred to cardiothoracic surgery and underwent three-vessel coronary bypass grafting with HUTCHISON to LAD SVG to OM and SVG to the ramus with his right leg endoscopic vein harvest and exclusion of the left atrial appendix with 35mm atrial clip. Patient was evaluated today in the ICU, is extubated currently on room air and comfortable. He denies any chest pain or breathing difficulty is awake alert and oriented 3. Arm he denies any lower extremity edema. Last bowel movement was on Sunday. Patient has a mediastinal to and a left pleural chest tube with a total of 160 mL of serous output. No air leak . Pacer leads and in place. Mcdonald catheter is present. Normal saline is running at 50 mL per hour. Urine output is appropriate Review of Systems Constitutional: Denies chills, Denies fever, Denies lethargy, Denies malaise, Denies poor appetite, Denies weakness, Denies weight loss Eyes: denies decreased vision, denies diplopia, denies discharge, denies pain Ears: deny: decreased hearing Ears, nose, mouth and throat: Denies dental pain, Denies headache, Denies nasal discharge, Denies nose pain Cardiovascular: Endorses soreness in the chest deny chest pain, Denies decreased exercise tolerance, Denies edema, Denies high blood pressure, Denies irregular heart beat, Denies palpitations, Denies paroxysmal nocturnal dyspnea, Denies rapid heart beat, Denies shortness of breath Respiratory: Denies congestion, Denies cough, Denies cough with sputum, Denies dyspnea, Denies home oxygen, Denies wheezing Gastrointestinal: Denies abdominal pain, Denies change in bowel habits, Denies coffee ground emesis, Denies early satiety, Denies excessive gas, Denies heartburn, Denies hematemesis, Denies hematochezia, Denies loss of appetite, Denies nausea, Denies vomiting endorses constipation Genitourinary: Denies dysuria, Denies flank pain, Denies kidney stones, Denies menorrhagia, Denies urgency, Denies urinary frequency Musculoskeletal: Denies gait dysfunction, Denies limitation of motion, Denies morning stiffness, Denies muscle cramps Integumentary: Denies rash, Denies wounds, Denies brittle nails, Denies change in hair/nails, Denies darkening of skin Neurological: Denies balance difficulties, Denies change in speech, Denies double vision, Denies gait dysfunction, Denies loss of vision, Denies motor disturbance, Denies numbness, Denies paralysis, Denies paresthesias, Denies seizures Psychiatric: Denies anxiety, Denies depression Endocrine: Denies excessive sweating, Denies excessive thirst, Denies high blood sugars, Denies palpitations Hematologic/Lymphatic: Denies easy bruising, Denies lymphadenopathy Past Medical History Past Medical History: Hyperlipidemia, Osteoarthritis (OA), Prostate Disorder Additional Past Medical History / Comment(s): Hypercholesterolemia History of Any Multi-Drug Resistant Organisms: None Reported Past Surgical History: Heart Catheterization, Joint Replacement Additional Past Surgical History / Comment(s): right hip replacement Past Anesthesia/Blood Transfusion Reactions: No Reported Reaction Smoking Status: Never smoker - Past Family History Mother Family Medical History: Cancer, Hypertension Additional Family Medical History / Comment(s): bone Father Family Medical History: Cancer, Congestive Heart Failure (CHF) Additional Family Medical History / Comment(s): bladder and skin Brother(s) Family Medical History: Cancer, Coronary Artery Disease (CAD) Additional Family Medical History / Comment(s): skin Medications and Allergies Home Medications Medication Instructions Recorded Confirmed Type Aspirin 81 mg PO DAILY #30 chewable 06/17/20 07/06/20 Rx Metoprolol Tartrate 25 mg PO BID #60 tab 06/17/20 07/06/20 Rx Nitroglycerin Sl Tabs [Nitrostat] 0.4 mg SUBLINGUAL Q5M PRN #25 tab 06/17/20 07/06/20 Rx Tamsulosin [Flomax] 0.4 mg PO HS 06/30/20 07/06/20 History Ubidecarenone [Co Q-10] 100 mg PO HS 06/30/20 07/06/20 History Atorvastatin [Lipitor] 10 mg PO HS 07/01/20 07/06/20 History Allergies Allergy/AdvReac Type Severity Reaction Status Date / Time Penicillins Allergy Unknown Verified 07/06/20 05:54 Childhood Physical Exam Vitals: Vital Signs Temp Pulse Pulse Resp BP Pulse Ox 07/07/20 11:30 86 07/07/20 11:20 84 07/07/20 08:00 98.3 F 97 102 H 17 104/58 95 07/07/20 07:42 98 07/07/20 07:31 96 07/07/20 07:30 95 16 96 07/07/20 07:00 104 H 18 96 07/07/20 06:30 102 H 20 104/58 97 07/07/20 06:00 111 H 22 95 07/07/20 05:30 106 H 24 96 07/07/20 05:00 104 H 20 96 07/07/20 04:30 99.5 F 108 H 18 96 07/07/20 04:00 104 H 102 H 18 96 07/07/20 03:30 100 17 95 07/07/20 03:00 105 H 12 95 07/07/20 02:30 105 H 18 94 L 07/07/20 02:00 109 H 17 96 07/07/20 01:30 109 H 17 95 07/07/20 01:00 107 H 12 96 07/07/20 00:51 95 07/07/20 00:30 99.7 F H 108 H 17 94 L 07/07/20 00:00 108 H 108 H 17 94 L 07/06/20 23:30 108 H 20 98 07/06/20 23:23 103 H 17 96 07/06/20 23:00 111 H 21 97 07/06/20 22:30 111 H 15 98 07/06/20 22:00 109 H 22 95 07/06/20 21:30 113 H 95 07/06/20 21:00 110 H 20 97 07/06/20 20:30 108 H 25 H 99 07/06/20 20:11 111 H 07/06/20 20:00 99.3 F 106 H 104 H 21 97 07/06/20 19:30 101 H 20 98 07/06/20 19:00 101 H 22 98 07/06/20 18:30 97 23 100 07/06/20 18:00 92 33 H 99 07/06/20 17:30 86 24 100 07/06/20 17:00 91 27 H 97 07/06/20 16:30 90 24 99 07/06/20 16:13 80 07/06/20 16:07 87 07/06/20 16:00 96.8 F L 80 19 100 07/06/20 15:30 86 19 100 07/06/20 15:00 88 24 100 07/06/20 14:53 87 21 100 Intake and Output 07/06/20 07/07/20 07/07/20 22:59 06:59 14:59 Intake Total 3189.727 4060.440 159.852 Output Total 930 690 130 Balance 311.117 616.440 29.852 Intake: IV 696 743 158 0.9 450 350 100 Albumin Human 5% 250 ml 250 In Empty Bag 1 bag @ 250 mls/hr IVPB Q1HR PRN Rx#: [id number] CO/CI 210 80 40 Pressure bag 36 63 18 Intake, IV Titration 5.117 23.440 1.852 Amount Insulin Regular 100 unit 5.117 23.440 1.852 In Sodium Chloride 0.9% 100 ml @ Per Protocol IV .Q0M [facility] Rx#:[id number] Oral 540 Blood Product 540 Output: Chest Tube Drainage 320 220 20 Chest Tube Left Pleural/ 320 220 20 Mediastinal Urine 610 470 110 Other: Voiding Method Indwelling Catheter Indwelling Catheter Indwelling Catheter Weight 128.8 kg 128.8 kg ABP, PAP, CO, CI - Last 8 Hours Arterial Blood Pressure 121/50 Arterial Blood Pressure 120/51 Arterial Blood Pressure 123/55 Arterial Blood Pressure 106/56 Arterial Blood Pressure 91/60 Arterial Blood Pressure 127/60 Arterial Blood Pressure 116/64 Arterial Blood Pressure 122/58 Pulmonary Artery Pressure 23/8 Pulmonary Artery Pressure 22/8 Pulmonary Artery Pressure 23/10 Pulmonary Artery Pressure 26/10 Pulmonary Artery Pressure 26/12 Pulmonary Artery Pressure 27/17 Pulmonary Artery Pressure 29/20 Pulmonary Artery Pressure 28/17 Cardiac Output 7.7 Cardiac Output 7.7 Cardiac Output 7.7 Cardiac Output 9.6 Cardiac Index 3 Cardiac Index 3 Cardiac Index 3 Cardiac Index 3.8 - Constitutional General appearance: cooperative, no acute distress, obese - EENT Eyes: anicteric sclerae, PERRLA, normal appearance ENT: hearing grossly normal - Neck Neck: no lymphadenopathy, normal ROM, no other, no rigidity, no stridor, no thyromegaly, central line in the right neck movement, no wheezing or drainage noted JVP is elevated - Respiratory Respiratory: bilateral: Decreased air entry bilaterally, left chest tube and mediastinal tube in place. Central dressing in place with no wheezing or drainage noted. - Cardiovascular Rhythm: regular Heart sounds: normal: S1, S2 Abnormal Heart Sounds: no systolic murmur, no diastolic murmur, no rub, no S3 Gallop, no S4 Gallop, no click, no other - Gastrointestinal General gastrointestinal: normal bowel sounds, soft nontender - Integumentary Integumentary: no rash - Neurologic Neurologic: CNII-XII intact - Musculoskeletal Musculoskeletal: gait not assessed, strength equal bilaterally - Psychiatric Psychiatric: A&O x's 3, appropriate affect Results CBC & Chem 7: 07/07/20 03:05 07/07/20 03:05 Labs: Abnormal Lab Results - Last 24 Hours (Table) 07/02/20 07/06/20 07/06/20 Range/Units 07:04 12:45 14:00 WBC (3.8-10.6) k/uL RBC 3.92 L (4.30-5.90) m/uL Hgb 11.9 L D (13.0-17.5) gm/dL Hct 33.0 L (39.0-53.0) % Plt Count 149 L (150-450) k/uL Neutrophils # 8.6 H (1.3-7.7) k/uL Lymphocytes # 0.7 L (1.0-4.8) k/uL INR (<1.2) APTT (22.0-30.0) sec ABG pH (7.35-7.45) ABG pCO2 (35-45) mmHg ABG pO2 239 H (83-108) mmHg ABG Total CO2 (19-24) mmol/L ABG O2 Saturation 100.0 H (94-97) % ABG Ionized Calcium 4.0 L (4.5-5.3) mg/dL ABG Glucose 169 H (75-99) mg/dL ABG Lactic Acid 2.7 H* (0.5-1.6) mmol/L Hemoglobin 11.0 L (13.0-17.5) gm/dL Sodium (137-145) mmol/L Chloride (98-107) mmol/L Creatinine (0.66-1.25) mg/dL Glucose (74-99) mg/dL POC Glucose (mg/dL) (75-99) mg/dL Calcium (8.4-10.2) mg/dL Magnesium (1.6-2.3) mg/dL Total Protein (6.3-8.2) g/dL Albumin (3.5-5.0) g/dL Arterial Blood Glucose 169 H (75-99) mg/dL Crossmatch See Detail 07/06/20 07/06/20 07/06/20 Range/Units 14:00 14:00 14:04 WBC (3.8-10.6) k/uL RBC (4.30-5.90) m/uL Hgb (13.0-17.5) gm/dL Hct (39.0-53.0) % Plt Count (150-450) k/uL Neutrophils # (1.3-7.7) k/uL Lymphocytes # (1.0-4.8) k/uL INR 1.2 H (<1.2) APTT 30.9 H (22.0-30.0) sec ABG pH (7.35-7.45) ABG pCO2 (35-45) mmHg ABG pO2 (83-108) mmHg ABG Total CO2 (19-24) mmol/L ABG O2 Saturation (94-97) % ABG Ionized Calcium (4.5-5.3) mg/dL ABG Glucose (75-99) mg/dL ABG Lactic Acid (0.5-1.6) mmol/L Hemoglobin (13.0-17.5) gm/dL Sodium (137-145) mmol/L Chloride 111 H (98-107) mmol/L Creatinine 0.60 L (0.66-1.25) mg/dL Glucose 138 H (74-99) mg/dL POC Glucose (mg/dL) 150 H (75-99) mg/dL Calcium 7.6 L (8.4-10.2) mg/dL Magnesium 2.4 H (1.6-2.3) mg/dL Total Protein 4.7 L (6.3-8.2) g/dL Albumin 3.0 L (3.5-5.0) g/dL Arterial Blood Glucose (75-99) mg/dL Crossmatch 07/06/20 07/06/20 07/06/20 Range/Units 14:28 16:11 16:30 WBC (3.8-10.6) k/uL RBC (4.30-5.90) m/uL Hgb (13.0-17.5) gm/dL Hct (39.0-53.0) % Plt Count (150-450) k/uL Neutrophils # (1.3-7.7) k/uL Lymphocytes # (1.0-4.8) k/uL INR (<1.2) APTT (22.0-30.0) sec ABG pH 7.33 L 7.28 L (7.35-7.45) ABG pCO2 46 H 49 H (35-45) mmHg ABG pO2 141 H (83-108) mmHg ABG Total CO2 25 H 25 H (19-24) mmol/L ABG O2 Saturation 98.9 H (94-97) % ABG Ionized Calcium (4.5-5.3) mg/dL ABG Glucose (75-99) mg/dL ABG Lactic Acid (0.5-1.6) mmol/L Hemoglobin (13.0-17.5) gm/dL Sodium (137-145) mmol/L Chloride (98-107) mmol/L Creatinine (0.66-1.25) mg/dL Glucose (74-99) mg/dL POC Glucose (mg/dL) 180 H (75-99) mg/dL Calcium (8.4-10.2) mg/dL Magnesium (1.6-2.3) mg/dL Total Protein (6.3-8.2) g/dL Albumin (3.5-5.0) g/dL Arterial Blood Glucose (75-99) mg/dL Crossmatch 07/06/20 07/06/20 07/06/20 Range/Units 16:52 17:14 18:26 WBC 12.8 H (3.8-10.6) k/uL RBC 4.18 L (4.30-5.90) m/uL Hgb 12.8 L (13.0-17.5) gm/dL Hct 35.4 L (39.0-53.0) % Plt Count (150-450) k/uL Neutrophils # 11.3 H (1.3-7.7) k/uL Lymphocytes # 0.7 L (1.0-4.8) k/uL INR (<1.2) APTT (22.0-30.0) sec ABG pH (7.35-7.45) ABG pCO2 (35-45) mmHg ABG pO2 (83-108) mmHg ABG Total CO2 (19-24) mmol/L ABG O2 Saturation (94-97) % ABG Ionized Calcium (4.5-5.3) mg/dL ABG Glucose (75-99) mg/dL ABG Lactic Acid (0.5-1.6) mmol/L Hemoglobin (13.0-17.5) gm/dL Sodium (137-145) mmol/L Chloride (98-107) mmol/L Creatinine (0.66-1.25) mg/dL Glucose (74-99) mg/dL POC Glucose (mg/dL) 200 H 187 H (75-99) mg/dL Calcium (8.4-10.2) mg/dL Magnesium (1.6-2.3) mg/dL Total Protein (6.3-8.2) g/dL Albumin (3.5-5.0) g/dL Arterial Blood Glucose (75-99) mg/dL Crossmatch 07/06/20 07/06/20 07/06/20 Range/Units 19:14 19:45 20:14 WBC 11.8 H (3.8-10.6) k/uL RBC 4.20 L (4.30-5.90) m/uL Hgb 12.7 L (13.0-17.5) gm/dL Hct 35.4 L (39.0-53.0) % Plt Count (150-450) k/uL Neutrophils # 10.6 H (1.3-7.7) k/uL Lymphocytes # 0.4 L (1.0-4.8) k/uL INR (<1.2) APTT (22.0-30.0) sec ABG pH (7.35-7.45) ABG pCO2 (35-45) mmHg ABG pO2 (83-108) mmHg ABG Total CO2 (19-24) mmol/L ABG O2 Saturation (94-97) % ABG Ionized Calcium (4.5-5.3) mg/dL ABG Glucose (75-99) mg/dL ABG Lactic Acid (0.5-1.6) mmol/L Hemoglobin (13.0-17.5) gm/dL Sodium (137-145) mmol/L Chloride (98-107) mmol/L Creatinine (0.66-1.25) mg/dL Glucose (74-99) mg/dL POC Glucose (mg/dL) 172 H 158 H (75-99) mg/dL Calcium (8.4-10.2) mg/dL Magnesium (1.6-2.3) mg/dL Total Protein (6.3-8.2) g/dL Albumin (3.5-5.0) g/dL Arterial Blood Glucose (75-99) mg/dL Crossmatch 07/06/20 07/06/20 07/06/20 Range/Units 21:17 22:32 23:51 WBC (3.8-10.6) k/uL RBC (4.30-5.90) m/uL Hgb (13.0-17.5) gm/dL Hct (39.0-53.0) % Plt Count (150-450) k/uL Neutrophils # (1.3-7.7) k/uL Lymphocytes # (1.0-4.8) k/uL INR (<1.2) APTT (22.0-30.0) sec ABG pH (7.35-7.45) ABG pCO2 (35-45) mmHg ABG pO2 (83-108) mmHg ABG Total CO2 (19-24) mmol/L ABG O2 Saturation (94-97) % ABG Ionized Calcium (4.5-5.3) mg/dL ABG Glucose (75-99) mg/dL ABG Lactic Acid (0.5-1.6) mmol/L Hemoglobin (13.0-17.5) gm/dL Sodium (137-145) mmol/L Chloride (98-107) mmol/L Creatinine (0.66-1.25) mg/dL Glucose (74-99) mg/dL POC Glucose (mg/dL) 150 H 160 H 162 H (75-99) mg/dL Calcium (8.4-10.2) mg/dL Magnesium (1.6-2.3) mg/dL Total Protein (6.3-8.2) g/dL Albumin (3.5-5.0) g/dL Arterial Blood Glucose (75-99) mg/dL Crossmatch 07/07/20 07/07/20 07/07/20 Range/Units 01:26 03:03 03:05 WBC 12.0 H (3.8-10.6) k/uL RBC 4.11 L (4.30-5.90) m/uL Hgb 11.6 L (13.0-17.5) gm/dL Hct 34.7 L (39.0-53.0) % Plt Count (150-450) k/uL Neutrophils # 10.3 H (1.3-7.7) k/uL Lymphocytes # 0.6 L (1.0-4.8) k/uL INR (<1.2) APTT (22.0-30.0) sec ABG pH (7.35-7.45) ABG pCO2 (35-45) mmHg ABG pO2 (83-108) mmHg ABG Total CO2 (19-24) mmol/L ABG O2 Saturation (94-97) % ABG Ionized Calcium (4.5-5.3) mg/dL ABG Glucose (75-99) mg/dL ABG Lactic Acid (0.5-1.6) mmol/L Hemoglobin (13.0-17.5) gm/dL Sodium (137-145) mmol/L Chloride (98-107) mmol/L Creatinine (0.66-1.25) mg/dL Glucose (74-99) mg/dL POC Glucose (mg/dL) 153 H 141 H (75-99) mg/dL Calcium (8.4-10.2) mg/dL Magnesium (1.6-2.3) mg/dL Total Protein (6.3-8.2) g/dL Albumin (3.5-5.0) g/dL Arterial Blood Glucose (75-99) mg/dL Crossmatch 07/07/20 07/07/20 07/07/20 Range/Units 03:05 04:33 06:07 WBC (3.8-10.6) k/uL RBC (4.30-5.90) m/uL Hgb (13.0-17.5) gm/dL Hct (39.0-53.0) % Plt Count (150-450) k/uL Neutrophils # (1.3-7.7) k/uL Lymphocytes # (1.0-4.8) k/uL INR (<1.2) APTT (22.0-30.0) sec ABG pH (7.35-7.45) ABG pCO2 (35-45) mmHg ABG pO2 (83-108) mmHg ABG Total CO2 (19-24) mmol/L ABG O2 Saturation (94-97) % ABG Ionized Calcium (4.5-5.3) mg/dL ABG Glucose (75-99) mg/dL ABG Lactic Acid (0.5-1.6) mmol/L Hemoglobin (13.0-17.5) gm/dL Sodium 135 L (137-145) mmol/L Chloride 108 H (98-107) mmol/L Creatinine 0.64 L (0.66-1.25) mg/dL Glucose 136 H (74-99) mg/dL POC Glucose (mg/dL) 145 H 131 H (75-99) mg/dL Calcium 8.0 L (8.4-10.2) mg/dL Magnesium (1.6-2.3) mg/dL Total Protein 5.0 L (6.3-8.2) g/dL Albumin 3.1 L (3.5-5.0) g/dL Arterial Blood Glucose (75-99) mg/dL Crossmatch 07/07/20 07/07/20 07/07/20 Range/Units 07:08 08:59 11:08 WBC (3.8-10.6) k/uL RBC (4.30-5.90) m/uL Hgb (13.0-17.5) gm/dL Hct (39.0-53.0) % Plt Count (150-450) k/uL Neutrophils # (1.3-7.7) k/uL Lymphocytes # (1.0-4.8) k/uL INR (<1.2) APTT (22.0-30.0) sec ABG pH (7.35-7.45) ABG pCO2 (35-45) mmHg ABG pO2 (83-108) mmHg ABG Total CO2 (19-24) mmol/L ABG O2 Saturation (94-97) % ABG Ionized Calcium (4.5-5.3) mg/dL ABG Glucose (75-99) mg/dL ABG Lactic Acid (0.5-1.6) mmol/L Hemoglobin (13.0-17.5) gm/dL Sodium (137-145) mmol/L Chloride (98-107) mmol/L Creatinine (0.66-1.25) mg/dL Glucose (74-99) mg/dL POC Glucose (mg/dL) 144 H 117 H 108 H (75-99) mg/dL Calcium (8.4-10.2) mg/dL Magnesium (1.6-2.3) mg/dL Total Protein (6.3-8.2) g/dL Albumin (3.5-5.0) g/dL Arterial Blood Glucose (75-99) mg/dL Crossmatch Assessment and Plan Plan: #1 postoperative day 1 coronary artery bypass grafting with HUTCHISON to LAD, SVG to the OM and SVG to the ramus with right leg endoscopic vein harvest and exclusion of the left atrial appendage. For significant coronary artery disease involving the LAD and intermediate vessel. Continue aspirin 325 mg, Lipitor 40 mg, Plavix 75 daily, metoprolol 25 twice a day #2 hypertension continue metoprolol 25 twice a day # 3 hyperlipidemia continue Lipitor increased from 10 mg to 40 mg daily #4 BPH continue tamsulosin 0.4 mg daily at bedtime. Patient has Mcdonald catheter. We'll check for urine retention more than 300 would need placement of the catheter again. Encourage ambulation #5 Anemia expected outcome off surgery. Continue monitoring hemoglobin. Repeat CBC tomorrow #6 type 2 diabetes controlled with diet. Insulin sliding scale. A1c is 5.1 #7 CODE STATUS full code #8 DVT prophylaxis with heparin every 8 #9 GI prophylaxis with pantoprazole 40 mg daily
--- NOTE | 2020-07-07 12:45 | P.PN ---
Subjective Progress Note Date: 07/07/20 Principal diagnosis: Coronary artery disease with significant left main disease. Previous medical history of hyperlipidemia, BPH, osteoarthritis status post right hip replacement, lifelong nonsmoker, and family history of premature coronary artery disease with brother having PCI in his early 50s. POD #1 coronary artery bypass 3, left internal mammary artery to the left anter ior descending artery, reverse saphenous vein graft to the ramus coronary artery, reverse saphenous vein graft to the obtuse marginal coronary artery. Endoscopic vein harvest of the right greater saphenous vein. Ligation of the left atrial appendage using a 35 mm AtriClip. Epi-aortic ultrasound and intraoperative transesophageal echocardiogram. Excision of chest wall soft tissue mass. The patient's currently sitting up in a recliner in the intensive care unit in no acute distress. He was successfully extubated last night at 16:40. He states pain is controlled on current medication regimen, denies shortness of breath. Remains in sinus rhythm to sinus tach with heart rate in the high 90s to low 100s, hemodynamically stable on no inotropes or pressors. Right internal jugular [place]/Cordis, right radial arterial line, mediastinal/left pleural chest tubes all present. Patient had an uneventful night. No new concerns. Objective - Vital Signs Vital signs: Vital Signs Temp 99.5 F 07/07/20 04:30 Pulse 96 07/07/20 07:31 Resp 18 07/07/20 07:00 BP 104/58 07/07/20 06:30 Pulse Ox 96 07/07/20 07:00 Intake & Output 07/06/20 07/07/20 07/07/20 18:59 06:59 18:59 Intake Total 326 2227.557 80.852 Output Total 3225 1245 55 Balance -2899 982.557 25.852 Weight 128.8 kg Intake: IV 326 1119 79 0.9 200 600 50 Albumin Human 5% 250 ml 250 In Empty Bag 1 bag @ 250 mls/hr IVPB Q1HR PRN Rx#: [id number] CO/CI 120 170 20 Pressure bag 99 9 Intake, IV Titration 28.557 1.852 Amount Insulin Regular 100 unit 28.557 1.852 In Sodium Chloride 0.9% 100 ml @ Per Protocol IV .Q0M [facility] Rx#:[id number] Oral 540 Blood Product 540 Output: Chest Tube Drainage 150 390 10 Chest Tube Left Pleural/ 150 390 10 Mediastinal Urine 1075 855 45 Estimated Blood Loss 1999 Other: Voiding Method Indwelling Catheter ABP, PAP, CO, CI - Last Documented Arterial Blood Pressure 123/55 Pulmonary Artery Pressure 23/10 Cardiac Output 7.7 Cardiac Index 3 - Exam CONSTITUTIONAL: Appears comfortable, cooperative, no acute distress RESPIRATORY: Lungs sounds diminished bilaterally. Respirations even, nonlabored. Currently on 3 L nasal cannula with oxygen saturation 96%. Able to achieve 1000 mL on incentive spirometry. Strong cough. CARDIOVASCULAR: S1, S2 present. Regular rate and rhythm, sinus rhythm to sinus tach on telemetry. Sternum stable. Palpable peripheral pulses bilaterally. Trace bilateral lower extremity edema present. No calf pain or tenderness noted. Heart hugger in place with patient demonstrating appropriate use. Antiembolism stockings, SCDs present. GASTROINTESTINAL: Abdomen soft, nontender, nondistended. Hypoactive bowel sounds present 4 quadrants. Tolerating clear liquids. Positive flatus. GENITOURINARY: Mcdonald present draining clear, yellow urine. Output overnight 45-115 mL per hour. INTEGUMENTARY: Skin is warm and dry with evidence of good perfusion. Anterior chest incision well approximated and covered with dry intact dressing. EVH site well approximated without redness or drainage. NEUROLOGIC: Cranial nerves II through XII intact MUSKULOSKELETAL: Able to move all extremities, strength equal bilaterally, gait normal PSYCHIATRIC: Alert and oriented to person place and time, appropriate affect, intact judgment and insight INVASIVE LINES AND TUBES: Mediastinal/left pleural chest tubes present and connected to wall suction, no air leaks present, 240 mL serosanguineous drainage overnight, 550 mL since surgery. A/V epicardial pacemaker wires present, connected to generator, backup rate 50 bpm. Right internal jugular [place]/Cordis, right radial arterial line present. Last CO/CI 7.7/3.0, PA /, CVP 4. - Allied health notes Allied health notes reviewed: nursing - Labs CBC & Chem 7: 07/07/20 03:05 07/07/20 03:05 Labs: Abnormal Lab Results - Last 24 Hours (Table) 07/02/20 07/06/20 07/06/20 Range/Units 07:04 08:24 09:51 WBC (3.8-10.6) k/uL RBC (4.30-5.90) m/uL Hgb (13.0-17.5) gm/dL Hct (39.0-53.0) % Plt Count (150-450) k/uL Neutrophils # (1.3-7.7) k/uL Lymphocytes # (1.0-4.8) k/uL INR (<1.2) APTT (22.0-30.0) sec ABG pH 7.27 L (7.35-7.45) ABG pCO2 53 H (35-45) mmHg ABG pO2 353 H 161 H (83-108) mmHg ABG Total CO2 27 H 26 H (19-24) mmol/L ABG O2 Saturation 100.0 H 99.2 H (94-97) % ABG Hematocrit (34.0-46.0) % ABG Potassium (3.4-4.5) mmol/L ABG Ionized Calcium (4.5-5.3) mg/dL ABG Glucose 110 H 149 H (75-99) mg/dL ABG Lactic Acid (0.5-1.6) mmol/L Hemoglobin 12.8 L (13.0-17.5) gm/dL Sodium (137-145) mmol/L Chloride (98-107) mmol/L Creatinine (0.66-1.25) mg/dL Glucose (74-99) mg/dL POC Glucose (mg/dL) (75-99) mg/dL Calcium (8.4-10.2) mg/dL Magnesium (1.6-2.3) mg/dL Total Protein (6.3-8.2) g/dL Albumin (3.5-5.0) g/dL Arterial Blood Potassium (3.4-4.5) mmol/L Arterial Blood Glucose 110 H 149 H (75-99) mg/dL Crossmatch See Detail 07/06/20 07/06/20 07/06/20 Range/Units 10:47 11:19 11:58 WBC (3.8-10.6) k/uL RBC (4.30-5.90) m/uL Hgb (13.0-17.5) gm/dL Hct (39.0-53.0) % Plt Count (150-450) k/uL Neutrophils # (1.3-7.7) k/uL Lymphocytes # (1.0-4.8) k/uL INR (<1.2) APTT (22.0-30.0) sec ABG pH 7.32 L (7.35-7.45) ABG pCO2 47 H (35-45) mmHg ABG pO2 303 H 237 H 280 H (83-108) mmHg ABG Total CO2 25 H 25 H (19-24) mmol/L ABG O2 Saturation 100.0 H 100.0 H 100.0 H (94-97) % ABG Hematocrit 33 L 31 L 32 L (34.0-46.0) % ABG Potassium 4.6 H 4.8 H 4.6 H (3.4-4.5) mmol/L ABG Ionized Calcium 4.0 L 4.1 L 4.1 L (4.5-5.3) mg/dL ABG Glucose 168 H 195 H 200 H (75-99) mg/dL ABG Lactic Acid 2.0 H 2.5 H* (0.5-1.6) mmol/L Hemoglobin 10.9 L 10.2 L 10.5 L (13.0-17.5) gm/dL Sodium (137-145) mmol/L Chloride (98-107) mmol/L Creatinine (0.66-1.25) mg/dL Glucose (74-99) mg/dL POC Glucose (mg/dL) (75-99) mg/dL Calcium (8.4-10.2) mg/dL Magnesium (1.6-2.3) mg/dL Total Protein (6.3-8.2) g/dL Albumin (3.5-5.0) g/dL Arterial Blood Potassium 4.6 H 4.8 H 4.6 H (3.4-4.5) mmol/L Arterial Blood Glucose 168 H 195 H 200 H (75-99) mg/dL Crossmatch 07/06/20 07/06/20 07/06/20 Range/Units 12:45 14:00 14:00 WBC (3.8-10.6) k/uL RBC 3.92 L (4.30-5.90) m/uL Hgb 11.9 L D (13.0-17.5) gm/dL Hct 33.0 L (39.0-53.0) % Plt Count 149 L (150-450) k/uL Neutrophils # 8.6 H (1.3-7.7) k/uL Lymphocytes # 0.7 L (1.0-4.8) k/uL INR 1.2 H (<1.2) APTT 30.9 H (22.0-30.0) sec ABG pH (7.35-7.45) ABG pCO2 (35-45) mmHg ABG pO2 239 H (83-108) mmHg ABG Total CO2 (19-24) mmol/L ABG O2 Saturation 100.0 H (94-97) % ABG Hematocrit (34.0-46.0) % ABG Potassium (3.4-4.5) mmol/L ABG Ionized Calcium 4.0 L (4.5-5.3) mg/dL ABG Glucose 169 H (75-99) mg/dL ABG Lactic Acid 2.7 H* (0.5-1.6) mmol/L Hemoglobin 11.0 L (13.0-17.5) gm/dL Sodium (137-145) mmol/L Chloride (98-107) mmol/L Creatinine (0.66-1.25) mg/dL Glucose (74-99) mg/dL POC Glucose (mg/dL) (75-99) mg/dL Calcium (8.4-10.2) mg/dL Magnesium (1.6-2.3) mg/dL Total Protein (6.3-8.2) g/dL Albumin (3.5-5.0) g/dL Arterial Blood Potassium (3.4-4.5) mmol/L Arterial Blood Glucose 169 H (75-99) mg/dL Crossmatch 07/06/20 07/06/20 07/06/20 Range/Units 14:00 14:04 14:28 WBC (3.8-10.6) k/uL RBC (4.30-5.90) m/uL Hgb (13.0-17.5) gm/dL Hct (39.0-53.0) % Plt Count (150-450) k/uL Neutrophils # (1.3-7.7) k/uL Lymphocytes # (1.0-4.8) k/uL INR (<1.2) APTT (22.0-30.0) sec ABG pH 7.33 L (7.35-7.45) ABG pCO2 46 H (35-45) mmHg ABG pO2 141 H (83-108) mmHg ABG Total CO2 25 H (19-24) mmol/L ABG O2 Saturation 98.9 H (94-97) % ABG Hematocrit (34.0-46.0) % ABG Potassium (3.4-4.5) mmol/L ABG Ionized Calcium (4.5-5.3) mg/dL ABG Glucose (75-99) mg/dL ABG Lactic Acid (0.5-1.6) mmol/L Hemoglobin (13.0-17.5) gm/dL Sodium (137-145) mmol/L Chloride 111 H (98-107) mmol/L Creatinine 0.60 L (0.66-1.25) mg/dL Glucose 138 H (74-99) mg/dL POC Glucose (mg/dL) 150 H (75-99) mg/dL Calcium 7.6 L (8.4-10.2) mg/dL Magnesium 2.4 H (1.6-2.3) mg/dL Total Protein 4.7 L (6.3-8.2) g/dL Albumin 3.0 L (3.5-5.0) g/dL Arterial Blood Potassium (3.4-4.5) mmol/L Arterial Blood Glucose (75-99) mg/dL Crossmatch 07/06/20 07/06/20 07/06/20 Range/Units 16:11 16:30 16:52 WBC 12.8 H (3.8-10.6) k/uL RBC 4.18 L (4.30-5.90) m/uL Hgb 12.8 L (13.0-17.5) gm/dL Hct 35.4 L (39.0-53.0) % Plt Count (150-450) k/uL Neutrophils # 11.3 H (1.3-7.7) k/uL Lymphocytes # 0.7 L (1.0-4.8) k/uL INR (<1.2) APTT (22.0-30.0) sec ABG pH 7.28 L (7.35-7.45) ABG pCO2 49 H (35-45) mmHg ABG pO2 (83-108) mmHg ABG Total CO2 25 H (19-24) mmol/L ABG O2 Saturation (94-97) % ABG Hematocrit (34.0-46.0) % ABG Potassium (3.4-4.5) mmol/L ABG Ionized Calcium (4.5-5.3) mg/dL ABG Glucose (75-99) mg/dL ABG Lactic Acid (0.5-1.6) mmol/L Hemoglobin (13.0-17.5) gm/dL Sodium (137-145) mmol/L Chloride (98-107) mmol/L Creatinine (0.66-1.25) mg/dL Glucose (74-99) mg/dL POC Glucose (mg/dL) 180 H (75-99) mg/dL Calcium (8.4-10.2) mg/dL Magnesium (1.6-2.3) mg/dL Total Protein (6.3-8.2) g/dL Albumin (3.5-5.0) g/dL Arterial Blood Potassium (3.4-4.5) mmol/L Arterial Blood Glucose (75-99) mg/dL Crossmatch 07/06/20 07/06/20 07/06/20 Range/Units 17:14 18:26 19:14 WBC (3.8-10.6) k/uL RBC (4.30-5.90) m/uL Hgb (13.0-17.5) gm/dL Hct (39.0-53.0) % Plt Count (150-450) k/uL Neutrophils # (1.3-7.7) k/uL Lymphocytes # (1.0-4.8) k/uL INR (<1.2) APTT (22.0-30.0) sec ABG pH (7.35-7.45) ABG pCO2 (35-45) mmHg ABG pO2 (83-108) mmHg ABG Total CO2 (19-24) mmol/L ABG O2 Saturation (94-97) % ABG Hematocrit (34.0-46.0) % ABG Potassium (3.4-4.5) mmol/L ABG Ionized Calcium (4.5-5.3) mg/dL ABG Glucose (75-99) mg/dL ABG Lactic Acid (0.5-1.6) mmol/L Hemoglobin (13.0-17.5) gm/dL Sodium (137-145) mmol/L Chloride (98-107) mmol/L Creatinine (0.66-1.25) mg/dL Glucose (74-99) mg/dL POC Glucose (mg/dL) 200 H 187 H 172 H (75-99) mg/dL Calcium (8.4-10.2) mg/dL Magnesium (1.6-2.3) mg/dL Total Protein (6.3-8.2) g/dL Albumin (3.5-5.0) g/dL Arterial Blood Potassium (3.4-4.5) mmol/L Arterial Blood Glucose (75-99) mg/dL Crossmatch 07/06/20 07/06/20 07/06/20 Range/Units 19:45 20:14 21:17 WBC 11.8 H (3.8-10.6) k/uL RBC 4.20 L (4.30-5.90) m/uL Hgb 12.7 L (13.0-17.5) gm/dL Hct 35.4 L (39.0-53.0) % Plt Count (150-450) k/uL Neutrophils # 10.6 H (1.3-7.7) k/uL Lymphocytes # 0.4 L (1.0-4.8) k/uL INR (<1.2) APTT (22.0-30.0) sec ABG pH (7.35-7.45) ABG pCO2 (35-45) mmHg ABG pO2 (83-108) mmHg ABG Total CO2 (19-24) mmol/L ABG O2 Saturation (94-97) % ABG Hematocrit (34.0-46.0) % ABG Potassium (3.4-4.5) mmol/L ABG Ionized Calcium (4.5-5.3) mg/dL ABG Glucose (75-99) mg/dL ABG Lactic Acid (0.5-1.6) mmol/L Hemoglobin (13.0-17.5) gm/dL Sodium (137-145) mmol/L Chloride (98-107) mmol/L Creatinine (0.66-1.25) mg/dL Glucose (74-99) mg/dL POC Glucose (mg/dL) 158 H 150 H (75-99) mg/dL Calcium (8.4-10.2) mg/dL Magnesium (1.6-2.3) mg/dL Total Protein (6.3-8.2) g/dL Albumin (3.5-5.0) g/dL Arterial Blood Potassium (3.4-4.5) mmol/L Arterial Blood Glucose (75-99) mg/dL Crossmatch 07/06/20 07/06/20 07/07/20 Range/Units 22:32 23:51 01:26 WBC (3.8-10.6) k/uL RBC (4.30-5.90) m/uL Hgb (13.0-17.5) gm/dL Hct (39.0-53.0) % Plt Count (150-450) k/uL Neutrophils # (1.3-7.7) k/uL Lymphocytes # (1.0-4.8) k/uL INR (<1.2) APTT (22.0-30.0) sec ABG pH (7.35-7.45) ABG pCO2 (35-45) mmHg ABG pO2 (83-108) mmHg ABG Total CO2 (19-24) mmol/L ABG O2 Saturation (94-97) % ABG Hematocrit (34.0-46.0) % ABG Potassium (3.4-4.5) mmol/L ABG Ionized Calcium (4.5-5.3) mg/dL ABG Glucose (75-99) mg/dL ABG Lactic Acid (0.5-1.6) mmol/L Hemoglobin (13.0-17.5) gm/dL Sodium (137-145) mmol/L Chloride (98-107) mmol/L Creatinine (0.66-1.25) mg/dL Glucose (74-99) mg/dL POC Glucose (mg/dL) 160 H 162 H 153 H (75-99) mg/dL Calcium (8.4-10.2) mg/dL Magnesium (1.6-2.3) mg/dL Total Protein (6.3-8.2) g/dL Albumin (3.5-5.0) g/dL Arterial Blood Potassium (3.4-4.5) mmol/L Arterial Blood Glucose (75-99) mg/dL Crossmatch 07/07/20 07/07/20 07/07/20 Range/Units 03:03 03:05 03:05 WBC 12.0 H (3.8-10.6) k/uL RBC 4.11 L (4.30-5.90) m/uL Hgb 11.6 L (13.0-17.5) gm/dL Hct 34.7 L (39.0-53.0) % Plt Count (150-450) k/uL Neutrophils # 10.3 H (1.3-7.7) k/uL Lymphocytes # 0.6 L (1.0-4.8) k/uL INR (<1.2) APTT (22.0-30.0) sec ABG pH (7.35-7.45) ABG pCO2 (35-45) mmHg ABG pO2 (83-108) mmHg ABG Total CO2 (19-24) mmol/L ABG O2 Saturation (94-97) % ABG Hematocrit (34.0-46.0) % ABG Potassium (3.4-4.5) mmol/L ABG Ionized Calcium (4.5-5.3) mg/dL ABG Glucose (75-99) mg/dL ABG Lactic Acid (0.5-1.6) mmol/L Hemoglobin (13.0-17.5) gm/dL Sodium 135 L (137-145) mmol/L Chloride 108 H (98-107) mmol/L Creatinine 0.64 L (0.66-1.25) mg/dL Glucose 136 H (74-99) mg/dL POC Glucose (mg/dL) 141 H (75-99) mg/dL Calcium 8.0 L (8.4-10.2) mg/dL Magnesium (1.6-2.3) mg/dL Total Protein 5.0 L (6.3-8.2) g/dL Albumin 3.1 L (3.5-5.0) g/dL Arterial Blood Potassium (3.4-4.5) mmol/L Arterial Blood Glucose (75-99) mg/dL Crossmatch 07/07/20 07/07/20 07/07/20 Range/Units 04:33 06:07 07:08 WBC (3.8-10.6) k/uL RBC (4.30-5.90) m/uL Hgb (13.0-17.5) gm/dL Hct (39.0-53.0) % Plt Count (150-450) k/uL Neutrophils # (1.3-7.7) k/uL Lymphocytes # (1.0-4.8) k/uL INR (<1.2) APTT (22.0-30.0) sec ABG pH (7.35-7.45) ABG pCO2 (35-45) mmHg ABG pO2 (83-108) mmHg ABG Total CO2 (19-24) mmol/L ABG O2 Saturation (94-97) % ABG Hematocrit (34.0-46.0) % ABG Potassium (3.4-4.5) mmol/L ABG Ionized Calcium (4.5-5.3) mg/dL ABG Glucose (75-99) mg/dL ABG Lactic Acid (0.5-1.6) mmol/L Hemoglobin (13.0-17.5) gm/dL Sodium (137-145) mmol/L Chloride (98-107) mmol/L Creatinine (0.66-1.25) mg/dL Glucose (74-99) mg/dL POC Glucose (mg/dL) 145 H 131 H 144 H (75-99) mg/dL Calcium (8.4-10.2) mg/dL Magnesium (1.6-2.3) mg/dL Total Protein (6.3-8.2) g/dL Albumin (3.5-5.0) g/dL Arterial Blood Potassium (3.4-4.5) mmol/L Arterial Blood Glucose (75-99) mg/dL Crossmatch - Imaging and Cardiology Chest x-ray: report reviewed, image reviewed Assessment and Plan Assessment: 1. Coronary artery disease with significant left main disease, status post three-vessel CABG 2. Hypertension 3. Hyperlipidemia, untreated, cholesterol 135, LDL 66 4. BPH 5. Osteoarthritis status post right hip replacement 6. Lifelong nonsmoker, preoperative FEV1 was 62% of predicted 7. Family history of premature coronary artery disease with brother having PCI in his early 50s. Plan: 1. Continue aspirin, statin, Plavix, beta parveen therapy. Will increase beta parveen therapy as tolerated 2. Wean O2 as tolerated. Encourage incentive spirometry 10 times every hour while awake. Bronchodilators per pulmonology 3. Will monitor daily labs and x-rays. Electrolyte replacement per protocol. 4. Increase activity, ambulate as tolerated. PT/OT/cardiac rehab following 5. GI/DVT prophylaxis 6. Pain control is current medication regimen 7. Insulin management per primary care service. Patient is not diabetic, preoperative hemoglobin A1c 5.1% 8. Discontinue [place]. Connect Cordis to continuous CVP monitoring 9. Continue chest tubes, Cordis, arterial line for another 24 hours 10. Continue Mcdonald catheter for another 24 hours for strict accurate intake and output. Daily weights 11. More recommendations to follow Time with Patient: Greater than 30
[2020-07-07 15:17] LABS: Glucose,Whole Blood 114 mg/dL (75-99)
[2020-07-07] MEDS ORDERED: ACETAMINOPHEN TAB 500 MG TAB PO PRN (16:46)
[2020-07-07 17:22] LABS: Glucose,Whole Blood 126 mg/dL (75-99)
[2020-07-07] MEDS: INSULIN ASPART (NovoLOG) 100 UNIT/ML VIAL SQ SCH ×2 (17:23→20:43)
[2020-07-07 20:50] LABS: Glucose,Whole Blood 108 mg/dL (75-99)
[2020-07-07] MEDS: SENNOSIDES-DOCUSATE SODIUM 1 EACH TAB PO SCH (21:06)
[2020-07-07] MEDS: TAMSULOSIN 0.4 MG CAP.ER.24H PO SCH (21:06)
[2020-07-08] MEDS: HYDROcodone/APAP 5-325MG 1 EACH TAB PO PRN (02:27)
[2020-07-08 04:59] LABS: Basophils % (A) 0 %; Eosinophils # (A) 0.1 k/uL (0-0.7); Eosinophils % (A) 1 %; HCT 30.6 % (39.0-53.0); HGB 10.9 gm/dL (13.0-17.5); Lymphocytes # (A) 0.9 k/uL (1.0-4.8); Lymphocytes % (A) 10 %; MCH 30.1 pg (25.0-35.0); MCHC 35.5 g/dL (31.0-37.0); MCV 84.7 fL (80.0-100.0); Mean Platelet Volume 7.4; Monocytes % (A) 11 %; Neutrophils # (A) 7.4 k/uL (1.3-7.7); Neutrophils % (A) 78 %; Platelet Count 155 k/uL (150-450); RBC 3.61 m/uL (4.30-5.90); RDW 14.3 % (11.5-15.5); WBC 9.5 k/uL (3.8-10.6)
[2020-07-08 05:15] LABS: Ionized Calcium 4.7 mg/dL (4.5-5.3)
[2020-07-08 05:23] LABS: ALT 13 U/L (4-49); AST 30 U/L (17-59); African American GFR (CKD) >90 (>60 ml/min/1.73 sqM); Alkaline Phosphatase 61 U/L (38-126); Anion Gap 2 mmol/L; Blood Urea Nitrogen 13 mg/dL (9-20); Calcium 7.9 mg/dL (8.4-10.2); Carbon Dioxide 27 mmol/L (22-30); Chloride 106 mmol/L (98-107); Glucose 125 mg/dL (74-99); Non-African American GFR(CKD) >90 (>60 ml/min/1.73 sqM); Potassium 3.9 mmol/L (3.5-5.1); Sodium 135 mmol/L (137-145); Total Bilirubin 0.8 mg/dL (0.2-1.3); Total Protein 4.9 g/dL (6.3-8.2)
[2020-07-08] MEDS: KETOROLAC 15 MG/ML 1 ML VIAL IVP SCH ×3 (06:16→18:34)
[2020-07-08] MEDS: INSULIN ASPART (NovoLOG) 100 UNIT/ML VIAL SQ SCH ×4 (06:58→21:49)
[2020-07-08] MEDS: PANTOPRAZOLE 40 MG TABLET PO SCH (06:59)
[2020-07-08] MEDS ORDERED: POTASSIUM CHLORIDE ER 20 MEQ TAB.ER PO SCH (07:00)
[2020-07-08 07:10] LABS: Glucose,Whole Blood 129 mg/dL (75-99)
--- NOTE | 2020-07-08 08:10 | XR ---
EXAMINATION TYPE: XR chest 1V portable DATE OF EXAM: 07/08/2020 COMPARISON: 07/07/2020 5:09 AM HISTORY: Post cardiac surgery TECHNIQUE: Single frontal view of the chest is obtained. FINDINGS: Status post median sternotomy. [place] catheter has been removed. Left-sided chest tube and mediastinal drainage catheter seen. Overlying leads. No pneumothorax. Cardiomediastinal silhouet te is stable. Prominence of the central pulmonary vasculature may be due to pulmonary vascular conges tion versus crowding of the interstitium due to low lung volumes. Mild patchy left basilar airspace o pacity is stable to decreased. No significant pleural effusion or pneumothorax. IMPRESSION: 1. [place]a catheter has been removed. Mediastinal drainage catheter and left chest tube are seen. 2. Crowding of Central pulmonary vasculature may be due to low lung volumes persist pulmonary vascula r congestion. Cardiomediastinal silhouette is stable. 3. Mild patchy left basilar airspace opacity is stable to decreased.
[2020-07-08] MEDS: IPRATROPIUM-ALBUTEROL 3 ML NEB INHALATION SCH ×4 (08:36→20:01)
--- NOTE | 2020-07-08 09:34 | PN ---
PROGRESS NOTE Mr. Gan is a 59-year-old male with a history of CAD status post coronary artery bypass grafting. He underwent well this morning. He is feeling better. He denies any chest pain. He denies any dizziness or palpitation. He denies any nausea. He underwent coronary artery bypass grafting on the 1st where he received HUTCHISON to the LAD, saphenous vein graft to the ramus, saphenous vein graft to the obtuse marginal branch. He is in sinus mechanism, on no vasopressors. He continues on aspirin once a day, Lipitor 40 mg daily, Plavix 75 mg daily, metoprolol 25 mg twice a day. PHYSICAL EXAMINATION: VITAL SIGNS: Blood pressure running in the 120s with a heart rate in 90s. LUNGS: Mild decrease in breath sounds at the bases, no wheezes. HEART: Regular rhythm S1, S2. No S3. No rub appreciated. ABDOMEN: Soft, nontender, positive bowel sounds. EXTREMITIES: No edema noted. Chest x-ray revealed mild congestion with no clear infiltrate. LAB DATA: Lab data revealed BUN and creatinine 13 and 0.71. His potassium is 3.9, hemoglobin of 10.9. IMPRESSION: 1. Status post coronary artery bypass grafting, stable. 2. History of hypertension. 3. Diabetes. 4. Hyperlipidemia. RECOMMENDATION: From the cardiac standpoint stable. Continue incentive spirometry. Increase his level activity and depending on his blood pressure, his beta parveen dose will be adjusted. If needed the GHANSHYAM inhibitor will be added to his regimen. Depending on his progress, further recommendation will be made. MMODL / IJN: [id number] /
[2020-07-08] MEDS: CLOPIDOGREL 75 MG TAB PO SCH (10:01)
[2020-07-08] MEDS: HEPARIN SODIUM,PORCINE/PF 5,000 UNIT/0.5 ML SYRINGE SQ SCH ×2 (10:01→16:05)
[2020-07-08] MEDS: ASPIRIN 325 MG TAB PO SCH (10:01)
[2020-07-08] MEDS: METOPROLOL TARTRATE 25 MG TAB PO SCH (10:01)
[2020-07-08] MEDS: ATORVASTATIN 40 MG TAB PO SCH (10:01)
[2020-07-08 12:14] LABS: Glucose,Whole Blood 113 mg/dL (75-99)
--- NOTE | 2020-07-08 13:06 | P.PN ---
Subjective Progress Note Date: 07/08/20 HISTORY OF PRESENT ILLNESS 59 years old male patient of Dr. Apodaca with past medical history of coronary artery disease with left main disease, history of hypertension, , h yperlipidemia, BPH, osteoarthritis with right hip replacement, family history of early onset coronary artery disease who was evaluated for chest pain by the primary care physician and underwent cardiac cath on 07/01 suggesting critical lesion involving the left main, 70-80% involving the ostium of intermediate coronary artery. Patient was referred to cardiothoracic surgery and underwent three-vessel coronary bypass grafting with HUTCHISON to LAD SVG to OM and SVG to the ramus with his right leg endoscopic vein harvest and exclusion of the left atrial appendix with 35mm atrial clip. Patient was evaluated today in the ICU, is extubated currently on room air and comfortable. He denies any chest pain or breathing difficulty is awake alert and oriented 3. Arm he denies any lower extremity edema. Last bowel movement was on Sunday. Patient has a mediastinal to and a left pleural chest tube with a total of 160 mL of serous output. No air leak . Pacer leads and in place. Mcdonald catheter is present. Normal saline is running at 50 mL per hour. Urine output is appropriate /: Patient remains in the intensive care unit. He denies having any chest pain but has pain at the chest tube site. No abdominal pain. No nausea or vomiting. No lightheadedness or dizziness. He has been afebrile, heart rate 112, blood pressure 104/58, pulse ox 95% air sampling and monitoring sinus rhythm. Chest x- ray reveals [place] removed. Mediastinal drainage catheter and left chest tube seems. Central pulmonary vasculature crowding May be due to low lung volumes persistent pulmonary vascular congestion. Cardiomediastinal silhouette stable. Mild patchy left basilar airspace opacities stable to decreased. He is reaching 1000 miles on incentive spirometry. Repeat blood work reveals WBC 9.5, hemoglobin 10.9, platelet count 155. Sodium 135, potassium 3.9, chloride 106, CO2 27, BUN 13 creatinine 0.71. Blood sugars running between 108 and 129. Mcdonald catheter was removed this morning. One chest tube to be removed today. REVIEW OF SYSTEMS Constitutional: No fever, no chills, no night sweats. No weight change. No weakness, fatigue or lethargy. No daytime sleepiness. EENT: No headache. No blurred vision or double vision, no loss of vision. No loss of Hearing, no ringing in the ears, no dizziness. No nasal drainage or congestion. No epistaxis. No sore throat. Lungs: No shortness of breath, cough, no sputum production. No wheezing. Cardiovascular: No chest pain, chest tube site. no lower extremity edema. No palpitations. No paroxysmal nocturnal dyspnea. No orthopnea. No lightheadedness or dizziness. No syncopal episodes. Abdominal: No abdominal pain. No nausea, vomiting. No diarrhea. No constipation. No bloody or tarry stools. No loss of appetite. Genitourinary: No dysuria, increased frequency, urgency. No urinary retention. Musculoskeletal: No myalgias. No muscle weakness, no gait dysfunction, no frequent falls. No back pain. No neck pain. Integumentary: No wounds, no lesions. No rash or pruritus. No unusual bruising. No change in hair or nails. Neurologic: No aphasia. No facial droop. No change in mentation. No head injury. No headache. No paralysis. No paresthesia. Psychiatric: No depression. No anxiety. Endocrine: No abnormal blood [id number]. PHYSICAL EXAMINATION Gen: This is a 59-year-old male patient. He is resting in bed and appears to be comfortable. HEENT: Head is atraumatic, normocephalic. Pupils equal, round. Sclerae is anicteric. NECK: Supple. No JVD. No lymphadenopathy. No thyromegaly. LUNGS: Clear to auscultation. No wheezes or rhonchi. No intercostal retrac tions. HEART: Regular rate and rhythm. No murmur. ABDOMEN: Soft. Bowel sounds are present. No masses. No tenderness. EXTREMITIES: No pedal edema. No calf tenderness. NEUROLOGICAL: Patient is awake, alert and oriented x3. Cranial nerves 2 through 12 are grossly intact. ASSESSMENT AND PLAN #1 postoperative day 2 coronary artery bypass grafting with HUTCHISON to LAD, SVG to the OM and SVG to the ramus with right leg endoscopic vein harvest and exclusion of the left atrial appendage. For significant coronary artery disease involving the LAD and intermediate vessel. Continue aspirin 325 mg, Lipitor 40 mg, Plavix 75 daily, metoprolol 25 twice a day #2 hypertension continue metoprolol 25 twice a day # 3 hyperlipidemia continue Lipitor 40 mg daily #4 BPH continue tamsulosin 0.4 mg daily at bedtime. Patient has Mcdonald catheter, removed this morning. Encourage ambulation #5 Anemia expected outcome off surgery. Continue monitoring hemoglobin. Repeat CBC tomorrow #6 type 2 diabetes controlled with diet. Insulin sliding scale. A1c is 5.1 #7 CODE STATUS full code #8 DVT prophylaxis with heparin every 8 #9 GI prophylaxis with pantoprazole 40 mg daily DISCHARGE PLAN Home with [facility]. Impression and plan of care have been directed as dictated by the signing physician. Gracia Quezada nurse practitioner acting as scribe for signing physician. Objective - Vital Signs Vital signs: Vital Signs Temp 98.7 F 07/08/20 04:00 Pulse 112 H 07/08/20 08:49 Resp 26 H 07/08/20 07:00 BP 104/58 07/07/20 19:00 Pulse Ox 94 L 07/08/20 07:00 Intake & Output 07/07/20 07/08/20 07/08/20 18:59 06:59 18:59 Intake Total 263.495 0610 23 Output Total 720 875 Balance 229.852 457 23 Weight 128.8 kg 128.2 kg Intake: IV 948 332 23 0.9 600 270 20 CO/CI 240 20 Pressure bag 108 42 3 Intake, IV Titration 1.852 Amount Insulin Regular 100 unit 1.852 In Sodium Chloride 0.9% 100 ml @ Per Protocol IV .Q0M [facility] Rx#:[id number] Oral 1000 Output: Chest Tube Drainage 20 280 Chest Tube Left Pleural/ 20 280 Mediastinal Urine 700 595 Other: Voiding Method Indwelling Catheter Indwelling Catheter ABP, PAP, CO, CI - Last Documented Arterial Blood Pressure 97/49 Pulmonary Artery Pressure 23/9 Cardiac Output 7.7 Cardiac Index 3 - Labs CBC & Chem 7: 07/08/20 04:10 07/08/20 04:10 Labs: Abnormal Lab Results - Last 24 Hours (Table) 07/02/20 07/07/20 07/07/20 Range/Units 07:04 11:08 15:15 RBC (4.30-5.90) m/uL Hgb (13.0-17.5) gm/dL Hct (39.0-53.0) % Lymphocytes # (1.0-4.8) k/uL Sodium (137-145) mmol/L Glucose (74-99) mg/dL POC Glucose (mg/dL) 108 H 114 H (75-99) mg/dL Calcium (8.4-10.2) mg/dL Total Protein (6.3-8.2) g/dL Albumin (3.5-5.0) g/dL Crossmatch See Detail 07/07/20 07/07/20 07/08/20 Range/Units 17:21 20:30 04:10 RBC 3.61 L (4.30-5.90) m/uL Hgb 10.9 L (13.0-17.5) gm/dL Hct 30.6 L (39.0-53.0) % Lymphocytes # 0.9 L (1.0-4.8) k/uL Sodium (137-145) mmol/L Glucose (74-99) mg/dL POC Glucose (mg/dL) 126 H 108 H (75-99) mg/dL Calcium (8.4-10.2) mg/dL Total Protein (6.3-8.2) g/dL Albumin (3.5-5.0) g/dL Crossmatch 07/08/20 07/08/20 Range/Units 04:10 07:08 RBC (4.30-5.90) m/uL Hgb (13.0-17.5) gm/dL Hct (39.0-53.0) % Lymphocytes # (1.0-4.8) k/uL Sodium 135 L (137-145) mmol/L Glucose 125 H (74-99) mg/dL POC Glucose (mg/dL) 129 H (75-99) mg/dL Calcium 7.9 L (8.4-10.2) mg/dL Total Protein 4.9 L (6.3-8.2) g/dL Albumin 3.0 L (3.5-5.0) g/dL Crossmatch
--- NOTE | 2020-07-08 13:28 | P.PN ---
Subjective Progress Note Date: 07/08/20 Principal diagnosis: Status post CABG postoperative day #2 This is a 59-year-old white male patient of Dr. Apodaca, and had been complaining of a burning chest pain with moderate activities. Patient's medical history significant for hypertension, diabetes mellitus type 2, dyslipidemia, early onset heart disease in his family, BPH, osteoarthritis, patient is a lifetime nonsmoker and his . Patient underwent stress test because of chest pains, and developed ischemic changes associated with wall motion abnormalities involving the anterior wall and lateral wall. Patient had a cardiac catheterization on 07/01/2020 showing critical lesion involving the left main, moderate to severe disease involving the ostium of the small intermediate. Echocardiogram from 07/01/2020 showed low normal EF of 50-55%, no evidence of aortic stenosis or aortic regurgitation, mild TR, no evidence of pulmonary hypertension and right- sided pressure was 23.3 mmHg. Carotid ultrasound showed no evidence of hemodynamically significant stenosis and mild to moderate atherosclerotic plaque. Was referred to cardiothoracic surgery for possibility of surgical intervention, and on 07/06/2020 patient underwent three-vessel coronary bypass grafting with HUTCHISON to LAD, SVG to the OM, and SVG to the ramus, with right leg endoscopic vein harvest, and exclusion of the left atrial appendage with 35 mm Atriclip. Patient was seen in the postoperative period in the intensive care unit, he has extubated fairly quickly after arriving to the intensive care unit, he extubated within 2 hours of OR exit time. His currently on a few liters per nasal cannula, breathing comfortably, he is awake and alert, oriented 3, following commands, hemodynamically he is stable, 1 mediastinal and left pleural chest tubes connected together, and there is a total of 160 mL of serous output since surgery, no air leak, patient received 250 mL of 5% albumin, his PA pressures 35/15, CVP is 10, CO 8.0, and a cardiac index is 3.3. His total EBL was 2 L intraoperatively, and patient received Cell Saver crystalloids and 5% albumin, currently hemodynamically stable, he is on 0.9 normal seen at a rate of 50 ML per hour, and nitroglycerin drip is at 5 mics per kilo per minute. Patient was reevaluated today on 07/07/2020, remains in the ICU, patient is status post CABG, had three-vessel bypass, extubated yesterday within 2 hours after he arrived to the ICU. He is on 2 L nasal cannula with O2 sat showed 97%. He is only on insulin drip at 2.5 units per hour, not requiring any inotropes and not requiring any pressors. His cardiac output is 7.7 cardiac index is 3 his chest tube drained about 550 ML serosanguineous fluid in the last 24 hours. Ration is doing well with incentive spirometry, achieving over thousand cc. Chest x-ray showed minimal basilar atelectasis. No evidence of congestive heart failure. BC is relatively normal hemoglobin is 11.6. Basic metabolic profile is normal, renal profile is normal Reevaluated today on 08/04/2020, patient remains in the ICU, he is postoperative day #2, on 2 L nasal cannula with O2 sat showed 94%. He is doing well with incentive spirometry up to 1250 mL thereafter. Chest x-ray showed minimal atelectasis, no acute process is noted. Patient is about to have his chest tube removed. Not requiring any pressors, not requiring any hemodynamic support or inotropes. CBC is relatively normal hemoglobin is 10.9 electrolytes are normal renal profile is normal, chest x-ray was reviewed and she continues to have left-sided chest tube in place. His Mcdonald catheter has been removed this morning. Objective - Vital Signs Vital signs: Vital Signs Temp 98.1 F 07/08/20 12:00 Pulse 96 07/08/20 12:00 Resp 23 07/08/20 12:00 BP 129/84 07/08/20 11:00 Pulse Ox 97 07/08/20 12:00 Intake & Output 07/07/20 07/08/20 07/08/20 18:59 06:59 18:59 Intake Total 260.699 8051 318 Output Total 720 875 600 Balance 229.852 457 -282 Weight 128.8 kg 128.2 kg Intake: IV 948 332 78 0.9 600 270 60 CO/CI 240 20 Pressure bag 108 42 18 Intake, IV Titration 1.852 Amount Insulin Regular 100 unit 1.852 In Sodium Chloride 0.9% 100 ml @ Per Protocol IV .Q0M [facility] Rx#:[id number] Oral 1000 240 Output: Chest Tube Drainage 20 280 Chest Tube Left Pleural/ 20 280 Mediastinal Urine 700 595 600 Other: Voiding Method Indwelling Catheter Indwelling Catheter ABP, PAP, CO, CI - Last Documented Arterial Blood Pressure 103/41 Pulmonary Artery Pressure 23/9 Cardiac Output 7.7 Cardiac Index 3 - Exam Physical Exam revealed a 59-year-old white male in no distress. On 2 L nasal cannula. Asymptomatic. Head: Atraumatic, normocephalic. HEENT:[Neck is supple.] [No neck masses.] [No thyromegaly.] [No JVD.] Chest: [Symmetrical chest expansion, diminished breath sounds at the bases no crackles or rhonchi or wheezes, left-sided chest tube is noted in place. Cardiac Exam: [Normal S1 and S2, no S3 gallop, no murmur.] Abdomen: [Soft, nontender, no megaly, no rebound, no guarding, normal bowel sounds.] Extremities: [No clubbing, no edema, no cyanosis.] Neurological Exam: Alert and oriented 3. [No focal neurologic deficit.] Psychiatric: Normal mood, affect normal mental status examination. Musculoskeletal: No deformities noted limitation range of motion. - Labs CBC & Chem 7: 07/08/20 04:10 07/08/20 04:10 Labs: Abnormal Lab Results - Last 24 Hours (Table) 07/02/20 07/07/20 07/07/20 Range/Units 07:04 15:15 17:21 RBC (4.30-5.90) m/uL Hgb (13.0-17.5) gm/dL Hct (39.0-53.0) % Lymphocytes # (1.0-4.8) k/uL Sodium (137-145) mmol/L Glucose (74-99) mg/dL POC Glucose (mg/dL) 114 H 126 H (75-99) mg/dL Calcium (8.4-10.2) mg/dL Total Protein (6.3-8.2) g/dL Albumin (3.5-5.0) g/dL Crossmatch See Detail 07/07/20 07/08/20 07/08/20 Range/Units 20:30 04:10 04:10 RBC 3.61 L (4.30-5.90) m/uL Hgb 10.9 L (13.0-17.5) gm/dL Hct 30.6 L (39.0-53.0) % Lymphocytes # 0.9 L (1.0-4.8) k/uL Sodium 135 L (137-145) mmol/L Glucose 125 H (74-99) mg/dL POC Glucose (mg/dL) 108 H (75-99) mg/dL Calcium 7.9 L (8.4-10.2) mg/dL Total Protein 4.9 L (6.3-8.2) g/dL Albumin 3.0 L (3.5-5.0) g/dL Crossmatch 07/08/20 07/08/20 Range/Units 07:08 12:13 RBC (4.30-5.90) m/uL Hgb (13.0-17.5) gm/dL Hct (39.0-53.0) % Lymphocytes # (1.0-4.8) k/uL Sodium (137-145) mmol/L Glucose (74-99) mg/dL POC Glucose (mg/dL) 129 H 113 H (75-99) mg/dL Calcium (8.4-10.2) mg/dL Total Protein (6.3-8.2) g/dL Albumin (3.5-5.0) g/dL Crossmatch Assessment and Plan Assessment: Impression: Status post three-vessel CABG with HUTCHISON to LAD and SVG to obtuse margin and the ramus, postoperative day #2 Benign essential hypertension Type 2 diabetes Postoperative atelectasis, expected. Dyslipidemia. Strong family history of early onset ischemic heart disease. Degenerative joint disease. Type 2 diabetes. Lifelong nonsmoker. Recommendation: Continue present supportive care measures. Left-sided chest tube to be removed today. Continue incentive spirometer. Encourage deep coughing and deep breathing and ambulation. Transfer out of the ICU to a cardiac/medical floor. Continue GI and DVT prophylaxis. Aspirin and Plavix statin and beta blockers. Encourage ambulation. Possible discharge planning in the next 24 hours. Time with Patient: Less than 30
--- NOTE | 2020-07-08 16:35 | P.PN ---
Subjective Progress Note Date: 07/08/20 Principal diagnosis: Coronary artery disease with significant left main disease. Past medical history significant for hyperlipidemia, BPH, osteoarthritis status post right hip replacement, lifelong nonsmoker, and family history of premature coronary artery disease with brother having PCI in his early 50s. POD #2 coronary artery bypass 3, left internal mammary artery to the left anterior descending artery, a reverse greater saphenous vein graft to the ramus coronary artery,a reverse greater saphenous vein graft to the obtuse marginal coronary artery. Endoscopic vein harvest of the right greater saphenous vein. Ligation of the left atrial appendage using a 35 mm AtriClip. Epi-aortic ultrasound and intraoperative transesophageal echocardiogram. Excision of chest wall soft tissue mass. Postoperative acute blood loss anemia, expected, due to hemodilution and cardio pulmonary bypass. The patient was seen in follow-up today 07/08/2020 at his bedside in the intensive care unit. Currently sitting up to the bedside chair, is awake, alert and oriented 3. He is in no acute distress. Denies any complaints of shortness of breath although is complaining of some surgical type pain to his chest tube insertion sites of remaining his pain 3 out of 10 on the pain scale. Oxygen saturations are 94% on 2 L nasal cannula and he is achieving 3277-1848 mL on his incentive spirometry. Bedside telemetry showing sinus tachycardia heart rate 105 BPM. Mediastinal and left pleural chest tubes remain in place to low continuous wall suction -20 cm H2O. No air leak is present. Draining thin serosanguineous drainage with 150 mL output in the last 8 hours and 450 mL outpu t in the last 24 hours. Mcdonald catheter remains in place for accurate I's and O's. Draining clear yellow urine with 435 mL output last 8 hours. Objective - Vital Signs Vital signs: Vital Signs Temp 98.1 F 07/08/20 16:00 Pulse 105 H 07/08/20 16:00 Resp 20 07/08/20 16:00 BP 114/67 07/08/20 16:00 Pulse Ox 98 07/08/20 16:00 Intake & Output 07/07/20 07/08/20 07/08/20 18:59 06:59 18:59 Intake Total 875.695 8912 510 Output Total 720 875 900 Balance 229.852 457 -390 Weight 128.8 kg 128.2 kg Intake: IV 948 332 90 0.9 600 270 60 CO/CI 240 20 Pressure bag 108 42 30 Intake, IV Titration 1.852 Amount Insulin Regular 100 unit 1.852 In Sodium Chloride 0.9% 100 ml @ Per Protocol IV .Q0M [facility] Rx#:[id number] Oral 1000 420 Output: Chest Tube Drainage 20 280 Chest Tube Left Pleural/ 20 280 Mediastinal Urine 700 595 900 Other: Voiding Method Indwelling Catheter Indwelling Catheter Toilet Urinal # Voids 1 # Bowel Movements 1 ABP, PAP, CO, CI - Last Documented Arterial Blood Pressure 103/41 Pulmonary Artery Pressure 23/9 Cardiac Output 7.7 Cardiac Index 3 - Exam CONSTITUTIONAL: Sitting up to the bedside chair in the intensive care unit. Appears comfortable, cooperative, no acute distress RESPIRATORY: Lungs sounds diminished bilaterally with a few scattered crackles to his bilateral bases. Respirations are symmetrical and nonlabored. Currently on 2 L nasal cannula with oxygen saturation 94%. Able to achieve 6682-2626 mL on incentive spirometry. Strong cough. CARDIOVASCULAR: S1, S2 present. Regular rate and rhythm, sinus rhythm to sinus tach on telemetry. Sternum stable. Palpable peripheral pulses bilaterally. Trace bilateral lower extremity edema present. No calf pain or tenderness noted. Heart hugger in place with patient demonstrating appropriate use. Antiembolism stockings, SCDs present. GASTROINTESTINAL: Abdomen soft, nontender, nondistended. Active bowel sounds present 4 quadrants. Tolerating clear liquids. Positive flatus. GENITOURINARY: Mcdonald present draining clear, yellow urine. Output overnight 435 mL. INTEGUMENTARY: Skin is warm and dry with evidence of good perfusion. Midline sternal incision well approximated and covered with dry intact dressing. EVH site well approximated without redness or drainage. NEUROLOGIC: Cranial nerves II through XII intact. MUSKULOSKELETAL: Able to move all extremities, strength equal bilaterally, gait normal PSYCHIATRIC: Alert and oriented to person place and time, appropriate affect, intact judgment and insight INVASIVE LINES AND TUBES: Mediastinal/left pleural chest tubes present and connected to wall suction, no air leaks present, 150 mL serosanguineous drainage overnight, 450 mL in the last 24 hours. A/V epicardial pacemaker wires present, connected to generator, backup rate 50 bpm. - Labs CBC & Chem 7: 07/08/20 04:10 07/08/20 04:10 Labs: Abnormal Lab Results - Last 24 Hours (Table) 07/02/20 07/07/20 07/07/20 Range/Units 07:04 17:21 20:30 RBC (4.30-5.90) m/uL Hgb (13.0-17.5) gm/dL Hct (39.0-53.0) % Lymphocytes # (1.0-4.8) k/uL Sodium (137-145) mmol/L Glucose (74-99) mg/dL POC Glucose (mg/dL) 126 H 108 H (75-99) mg/dL Calcium (8.4-10.2) mg/dL Total Protein (6.3-8.2) g/dL Albumin (3.5-5.0) g/dL Crossmatch See Detail 07/08/20 07/08/20 07/08/20 Range/Units 04:10 04:10 07:08 RBC 3.61 L (4.30-5.90) m/uL Hgb 10.9 L (13.0-17.5) gm/dL Hct 30.6 L (39.0-53.0) % Lymphocytes # 0.9 L (1.0-4.8) k/uL Sodium 135 L (137-145) mmol/L Glucose 125 H (74-99) mg/dL POC Glucose (mg/dL) 129 H (75-99) mg/dL Calcium 7.9 L (8.4-10.2) mg/dL Total Protein 4.9 L (6.3-8.2) g/dL Albumin 3.0 L (3.5-5.0) g/dL Crossmatch 07/08/20 Range/Units 12:13 RBC (4.30-5.90) m/uL Hgb (13.0-17.5) gm/dL Hct (39.0-53.0) % Lymphocytes # (1.0-4.8) k/uL Sodium (137-145) mmol/L Glucose (74-99) mg/dL POC Glucose (mg/dL) 113 H (75-99) mg/dL Calcium (8.4-10.2) mg/dL Total Protein (6.3-8.2) g/dL Albumin (3.5-5.0) g/dL Crossmatch Assessment and Plan Assessment: 1. Coronary artery disease with significant left main disease, status post three-vessel CABG 2. Hypertension 3. Hyperlipidemia, untreated, cholesterol 135, LDL 66 4. BPH 5. Osteoarthritis status post right hip replacement 6. Lifelong nonsmoker, preoperative FEV1 was 62% of predicted 7. Family history of premature coronary artery disease with brother having PCI in his early 50s Plan: 1. Continue to maximize medical therapy with aspirin, statin, Plavix, and beta parveen. Will increase beta parveen as tolerated. 2. Wean O2 as tolerated. Encourage incentive spirometry 10 times every hour while awake. Bronchodilators per pulmonology. 3. Will monitor daily labs and chest x-rays. Electrolyte replacement per protocol. 4. Increase activity, ambulate as tolerated. PT/OT/cardiac rehab following 5. GI/DVT prophylaxis 6. Pain control is current medication regimen. 7. Insulin management per primary care service. Patient is not diabetic, preoperative hemoglobin A1c 5.1% 8. Mediastinal chest tube removed without incident. Left pleural chest tube remains in place to low continuous wall suction -20 cm H2O. Anticipate removal of left pleural chest tube tomorrow 07/09/2020. 9. Continue strict accurate intake and output. Daily weights 10. More recommendations to follow to follow based on patient's clinical course. Time with Patient: Greater than 30
[2020-07-08 16:43] LABS: Glucose,Whole Blood 97 mg/dL (75-99)
[2020-07-08] MEDS ORDERED: METOPROLOL TARTRATE 25 MG TAB PO STA (19:17)
[2020-07-08 21:31] LABS: Glucose,Whole Blood 134 mg/dL (75-99)
[2020-07-08] MEDS: SENNOSIDES-DOCUSATE SODIUM 1 EACH TAB PO SCH (21:45)
[2020-07-08] MEDS: TAMSULOSIN 0.4 MG CAP.ER.24H PO SCH (21:45)
[2020-07-09] MEDS: KETOROLAC 15 MG/ML 1 ML VIAL IVP SCH ×3 (00:35→12:16)
[2020-07-09] MEDS: HEPARIN SODIUM,PORCINE/PF 5,000 UNIT/0.5 ML SYRINGE SQ SCH ×4 (00:37→22:53)
[2020-07-09] MEDS: METOPROLOL TARTRATE 25 MG TAB PO SCH ×4 (00:38→22:51)
[2020-07-09 04:10] LABS: Basophils % (A) 0 %; Eosinophils # (A) 0.2 k/uL (0-0.7); Eosinophils % (A) 2 %; HCT 31.9 % (39.0-53.0); HGB 11.2 gm/dL (13.0-17.5); Lymphocytes # (A) 1.2 k/uL (1.0-4.8); Lymphocytes % (A) 13 %; MCH 30.2 pg (25.0-35.0); MCHC 35.1 g/dL (31.0-37.0); Mean Platelet Volume 7.4; Monocytes # (A) 0.8 k/uL (0-1.0); Monocytes % (A) 8 %; Neutrophils # (A) 7.1 k/uL (1.3-7.7); Neutrophils % (A) 76 %; Platelet Count 177 k/uL (150-450); RBC 3.71 m/uL (4.30-5.90); RDW 14.4 % (11.5-15.5); WBC 9.3 k/uL (3.8-10.6)
[2020-07-09 04:21] LABS: ALT 14 U/L (4-49); AST 22 U/L (17-59); African American GFR (CKD) >90 (>60 ml/min/1.73 sqM); Albumin 3.2 g/dL (3.5-5.0); Alkaline Phosphatase 69 U/L (38-126); Anion Gap 4 mmol/L; Blood Urea Nitrogen 15 mg/dL (9-20); Calcium 8.1 mg/dL (8.4-10.2); Carbon Dioxide 25 mmol/L (22-30); Chloride 109 mmol/L (98-107); Glucose 120 mg/dL (74-99); Non-African American GFR(CKD) >90 (>60 ml/min/1.73 sqM); Potassium 4.1 mmol/L (3.5-5.1); Sodium 138 mmol/L (137-145); Total Bilirubin 0.6 mg/dL (0.2-1.3); Total Protein 5.2 g/dL (6.3-8.2)
[2020-07-09] MEDS: PANTOPRAZOLE 40 MG TABLET PO SCH (06:21)
[2020-07-09 06:31] LABS: Glucose,Whole Blood 138 mg/dL (75-99)
[2020-07-09] MEDS: INSULIN ASPART (NovoLOG) 100 UNIT/ML VIAL SQ SCH ×4 (06:58→22:52)
[2020-07-09] MEDS: IPRATROPIUM-ALBUTEROL 3 ML NEB INHALATION SCH ×4 (07:19→19:54)
--- NOTE | 2020-07-09 07:30 | XR ---
EXAMINATION TYPE: XR chest 1V portable DATE OF EXAM: 07/09/2020 CLINICAL HISTORY: Difficulty breathing progress study. Postoperative cardiac surgery. TECHNIQUE: Single AP portable upright view of the chest is obtained. COMPARISON: Chest x-ray from one day earlier and older studies. FINDINGS: Overlying sternal wires and mediastinal clips along with left atrial appendage clip are al l redemonstrated. Interval removal of mediastinal drainage catheter. Persistent left-sided chest tube . Persistent low lung volumes with mild central vascular congestion and bibasilar atelectasis. Cardia c silhouette size is stable and upper limits of normal. No pneumothorax seen bilaterally. Osseous str uctures are intact. IMPRESSION: Interval removal of mediastinal drainage catheter. Persistent mild central vascular conge stion and bibasilar atelectasis and low lung volumes. No significant change from one day earlier.
[2020-07-09] MEDS: ATORVASTATIN 40 MG TAB PO SCH (08:29)
[2020-07-09] MEDS: CLOPIDOGREL 75 MG TAB PO SCH (08:29)
[2020-07-09] MEDS: ASPIRIN 325 MG TAB PO SCH (08:29)
[2020-07-09] MEDS: COLCHICINE 0.6 MG EACH PO SCH (08:59)
--- NOTE | 2020-07-09 09:02 | P.PN ---
Subjective Progress Note Date: 07/09/20 Principal diagnosis: Coronary artery disease with significant left main disease. Past medical history significant for hyperlipidemia, BPH, osteoarthritis status post right hip replacement, lifelong nonsmoker, and family history of premature coronary artery disease with brother having PCI in his early 50s. POD #3 coronary artery bypass 3, left internal mammary artery to the left anterior descending artery, a reverse greater saphenous vein graft to the ramus coronary artery,a reverse greater saphenous vein graft to the obtuse marginal coronary artery. Endoscopic vein harvest of the right greater saphenous vein. Ligation of the left atrial appendage using a 35 mm AtriClip. Epi-aortic ultrasound and intraoperative transesophageal echocardiogram. Excision of chest wall soft tissue mass. Postoperative acute blood loss anemia, expected, due to hemodilution and cardio pulmonary bypass. The patient was seen in follow-up today 07/09/2020 at his bedside in the intensive care unit. Currently sitting up to the bedside chair, is awake, alert and oriented 3. He is in no acute distress. Denies any complaints of shortness of breath or pain. Oxygen saturations are 98% on 2 L nasal cannula and he is achieving 3948-1424 mL on his incentive spirometry. Bedside telemetry showing sinus tachycardia heart rate 115 BPM. Left pleural chest tube remain in place to low continuous wall suction -20 cm H2O. No air leak is present. Draining thin serosanguineous drainage with 130 mL output in the last 8 hours and 250 mL output in the last 24 hours. Mediastinal chest tubes were removed yesterday without incident. The patient reports he has been up ambulating in the intensive care unit hallway with minimal assistance from nursing staff and physical therapy staff. Objective - Vital Signs Vital signs: Vital Signs Temp 98.6 F 07/09/20 04:00 Pulse 109 H 07/09/20 07:30 Resp 17 07/09/20 07:30 BP 94/83 07/09/20 07:30 Pulse Ox 94 L 07/09/20 07:30 Intake & Output 07/08/20 07/09/20 07/09/20 18:59 06:59 18:59 Intake Total 633 990 Output Total 975 1590 Balance -342 -600 Weight 126.6 kg Intake: IV 93 0.9 60 Pressure bag 33 Oral 540 990 Output: Chest Tube Drainage 75 165 Chest Tube Left Pleural/ 75 165 Mediastinal Urine 900 1425 Other: Voiding Method Toilet Urinal Urinal # Voids 1 0 0 # Bowel Movements 1 ABP, PAP, CO, CI - Last Documented Arterial Blood Pressure 103/41 Pulmonary Artery Pressure 23/9 Cardiac Output 7.7 Cardiac Index 3 - Exam CONSTITUTIONAL: Sitting up to the bedside chair in the intensive care unit. Appears comfortable, cooperative, no acute distress RESPIRATORY: Lungs sounds diminished bilaterally with a few scattered crackles to his bilateral bases. Respirations are symmetrical and nonlabored. Currently on 2 L nasal cannula with oxygen saturation 98%. Able to achieve 7373-9528 mL on incentive spirometry. Strong cough. CARDIOVASCULAR: S1, S2 present negative for S3, gallop or murmur. Pericardial rub present. Regular rate and rhythm, sinus rhythm to sinus tach on telemetry. Sternum stable. Palpable peripheral pulses bilaterally. Trace bilateral lower extremity edema present. No calf pain or tenderness noted. Heart hugger in place with patient demonstrating appropriate use. Antiembolism stockings, SCDs present. GASTROINTESTINAL: Abdomen soft, nontender, nondistended. Active bowel sounds present 4 quadrants. Tolerating clear liquids. Positive flatus. GENITOURINARY: Continues to void. Output overnight 975 mL. INTEGUMENTARY: Skin is warm and dry with evidence of good perfusion. Midline sternal incision well approximated and covered with dry intact dressing. EVH site well approximated without redness or drainage. NEUROLOGIC: Cranial nerves II through XII intact. MUSKULOSKELETAL: Able to move all extremities, strength equal bilaterally, gait normal PSYCHIATRIC: Alert and oriented to person place and time, appropriate affect, intact judgment and insight INVASIVE LINES AND TUBES: Left pleural chest tubes present and connected to wall suction, no air leaks present, 130 mL serosanguineous drainage overnight, 250 mL in the last 24 hours. A/V epicardial pacemaker wires present and grounded. - Labs CBC & Chem 7: 07/09/20 03:51 07/09/20 03:51 Labs: Abnormal Lab Results - Last 24 Hours (Table) 07/08/20 07/08/20 07/09/20 Range/Units 12:13 21:29 03:51 RBC 3.71 L (4.30-5.90) m/uL Hgb 11.2 L (13.0-17.5) gm/dL Hct 31.9 L (39.0-53.0) % Chloride (98-107) mmol/L Glucose (74-99) mg/dL POC Glucose (mg/dL) 113 H 134 H (75-99) mg/dL Calcium (8.4-10.2) mg/dL Total Protein (6.3-8.2) g/dL Albumin (3.5-5.0) g/dL 07/09/20 07/09/20 Range/Units 03:51 06:30 RBC (4.30-5.90) m/uL Hgb (13.0-17.5) gm/dL Hct (39.0-53.0) % Chloride 109 H (98-107) mmol/L Glucose 120 H (74-99) mg/dL POC Glucose (mg/dL) 138 H (75-99) mg/dL Calcium 8.1 L (8.4-10.2) mg/dL Total Protein 5.2 L (6.3-8.2) g/dL Albumin 3.2 L (3.5-5.0) g/dL Assessment and Plan Assessment: 1. Coronary artery disease with significant left main disease, status post three-vessel CABG 2. Hypertension 3. Hyperlipidemia, untreated, cholesterol 135, LDL 66 4. BPH 5. Osteoarthritis status post right hip replacement 6. Lifelong nonsmoker, preoperative FEV1 was 62% of predicted 7. Family history of premature coronary artery disease with brother having PCI in his early 50s Plan: 1. Continue to maximize medical therapy with aspirin, statin, Plavix, and beta parveen. Metoprolol tartrate was increased to 25 mg by mouth 3 times a day yesterday. 2. Wean O2 as tolerated. Encourage incentive spirometry 10 times every hour while awake. Bronchodilators per pulmonology. 3. Will monitor daily labs and chest x-rays. Electrolyte replacement per protocol. 4. Increase activity, ambulate as tolerated. PT/OT/cardiac rehab following. 5. GI/DVT prophylaxis. 6. Pain control is current medication regimen. [place] was discontinued as his chest tubes will be removed. 7. Insulin management per primary care service. Patient is not diabetic, preoperative hemoglobin A1c 5.1% 8. Left pleural chest tube removed without incident. 9. Remove atrial and ventricular epicardial pacemaker wires, bed rest for 1 hour post epicardial pacemaker wire removal. 10. Continue strict accurate intake and output. Daily weights 11. Transfer to the third floor cardiac stepdown unit. 12. We will start him on colchicine 0.6 Daily for his pericardial rub. 13. We will obtain a limited echo to rule out pericardial effusion. 14. More recommendations to follow to follow based on patient's clinical course. Time with Patient: Greater than 30
--- NOTE | 2020-07-09 09:06 | PN ---
PROGRESS NOTE Mr. Gan is a 59-year-old male was found to have significant left main disease. Underwent coronary artery bypass grafting. He is doing well this morning. He has mild dyspnea and chest discomfort. He is in sinus mechanism. Hemodynamically, he is stable. He denies any dizziness or palpitations. He denies any nausea. His urine output is good. He continues to use incentive spirometry and continues to be on aspirin once a day, Lipitor 40 mg daily, Plavix 75 mg daily, metoprolol tartrate 25 mg 3 times a day, and Flomax. PHYSICAL EXAMINATION: Blood pressure 108/50 with a heart rate in the low 100s, afebrile. LUNGS with a few crackles at the bases. HEART regular rate and rhythm, S1, S2. No S3 with no rub appreciated. ABDOMEN: Soft, nontender. EXTREMITIES: No edema. LAB DATA: BUN and creatinine 15 and 0.66. Potassium 4.1. His hemoglobin of 11.2. Chest x-ray shows no acute infiltrate. IMPRESSION: 1. Status post coronary artery bypass grafting stable. 2. Episode of sinus tachycardia, stable. 3. History of hypertension. 4. History of hyperlipidemia. 5. History of diabetes mellitus. RECOMMENDATIONS: We will continue present therapy. Increase his level of activity. Continue incentive spirometry. Depending on the drainage from the chest tube, I will expect he should be able to be removed soon. MMODL / IJN: [id number] /
[2020-07-09] MEDS ORDERED: FUROSEMIDE 10 MG/ML 4 ML VIAL IV ONE (09:30)
[2020-07-09] MEDS: polyethylene glycoL 3350 17 GM POWD.PACK PO SCH (10:45)
[2020-07-09 11:42] LABS: Glucose,Whole Blood 143 mg/dL (75-99)
--- NOTE | 2020-07-09 12:02 | P.PN ---
Subjective Progress Note Date: 07/09/20 Principal diagnosis: Status post CABG postoperative day #3 This is a 59-year-old white male patient of Dr. Apodaca, and had been complaining of a burning chest pain with moderate activities. Patient's medical history significant for hypertension, diabetes mellitus type 2, dyslipidemia, early onset heart disease in his family, BPH, osteoarthritis, patient is a lifetime nonsmoker and his . Patient underwent stress test because of chest pains, and developed ischemic changes associated with wall motion abnormalities involving the anterior wall and lateral wall. Patient had a cardiac catheterization on 07/01/2020 showing critical lesion involving the left main, moderate to severe disease involving the ostium of the small intermediate. Echocardiogram from 07/01/2020 showed low normal EF of 50-55%, no evidence of aortic stenosis or aortic regurgitation, mild TR, no evidence of pulmonary hypertension and right- sided pressure was 23.3 mmHg. Carotid ultrasound showed no evidence of hemodynamically significant stenosis and mild to moderate atherosclerotic plaque. Was referred to cardiothoracic surgery for possibility of surgical intervention, and on 07/06/2020 patient underwent three-vessel coronary bypass grafting with HUTCHISON to LAD, SVG to the OM, and SVG to the ramus, with right leg endoscopic vein harvest, and exclusion of the left atrial appendage with 35 mm Atriclip. Patient was seen in the postoperative period in the intensive care unit, he has extubated fairly quickly after arriving to the intensive care unit, he extubated within 2 hours of OR exit time. His currently on a few liters per nasal cannula, breathing comfortably, he is awake and alert, oriented 3, following commands, hemodynamically he is stable, 1 mediastinal and left pleural chest tubes connected together, and there is a total of 160 mL of serous output since surgery, no air leak, patient received 250 mL of 5% albumin, his PA pressures 35/15, CVP is 10, CO 8.0, and a cardiac index is 3.3. His total EBL was 2 L intraoperatively, and patient received Cell Saver crystalloids and 5% albumin, currently hemodynamically stable, he is on 0.9 normal seen at a rate of 50 ML per hour, and nitroglycerin drip is at 5 mics per kilo per minute. Patient was reevaluated today on 07/07/2020, remains in the ICU, patient is status post CABG, had three-vessel bypass, extubated yesterday within 2 hours after he arrived to the ICU. He is on 2 L nasal cannula with O2 sat showed 97%. He is only on insulin drip at 2.5 units per hour, not requiring any inotropes and not requiring any pressors. His cardiac output is 7.7 cardiac index is 3 his chest tube drained about 550 ML serosanguineous fluid in the last 24 hours. Ration is doing well with incentive spirometry, achieving over thousand cc. Chest x-ray showed minimal basilar atelectasis. No evidence of congestive heart failure. BC is relatively normal hemoglobin is 11.6. Basic metabolic profile is normal, renal profile is normal Reevaluated today on 07/08/2020, patient remains in the ICU, he is postoperative day #2, on 2 L nasal cannula with O2 sat showed 94%. He is doing well with incentive spirometry up to 1250 mL thereafter. Chest x-ray showed minimal atelectasis, no acute process is noted. Patient is about to have his chest tube removed. Not requiring any pressors, not requiring any hemodynamic support or inotropes. CBC is relatively normal hemoglobin is 10.9 electrolytes are normal renal profile is normal, chest x-ray was reviewed and she continues to have left-sided chest tube in place. His Mcdonald catheter has been removed this morning. Reevaluated today on 07/09/2020, patient remains in the ICU, he is postoperative day #3. Patient is on 2 L nasal cannula and O2 saturations 95%. Patient is doing extremely well. Relatively asymptomatic, sitting at a bedside chair, awake, alert, oriented 3, had no chest pain no shortness of breath. Patient is doing great with incentive spirometry. Left pleural chest tube remains in place, and no air leak noted. Had 250 ML of serosanguineous drainage in the last 24 hours. His mediastinal chest tube was removed yesterday. Chest x-ray is again reassuring. No evidence of pulmonary edema, no infiltrate. CBC is relatively normal basic metabolic profile is normal renal profile is normal. Objective - Vital Signs Vital signs: Vital Signs Temp 98.0 F 07/09/20 08:00 Pulse 110 H 07/09/20 11:44 Resp 20 07/09/20 11:30 BP 125/83 07/09/20 11:30 Pulse Ox 96 07/09/20 11:30 Intake & Output 07/08/20 07/09/20 07/09/20 18:59 06:59 18:59 Intake Total 633 990 120 Output Total 975 1590 2900 Balance -342 600 -2780 Weight 126.6 kg Intake: IV 93 0.9 60 Pressure bag 33 Oral 540 990 120 Output: Chest Tube Drainage 75 165 Chest Tube Left Pleural/ 75 165 Mediastinal Urine 900 1425 2900 Other: Voiding Method Toilet Urinal Urinal Urinal # Voids 1 0 0 # Bowel Movements 1 ABP, PAP, CO, CI - Last Documented Arterial Blood Pressure 103/41 Pulmonary Artery Pressure 23/9 Cardiac Output 7.7 Cardiac Index 3 - Exam Physical Exam revealed a 59-year-old white male in no distress. On 2 L nasal cannula. Head: Atraumatic, normocephalic. HEENT:[Neck is supple.] [No neck masses.] [No thyromegaly.] [No JVD.] Chest: [Symmetrical chest expansion, clear bilaterally, no rhonchi no wheezes., left-sided chest tube is noted in place. Cardiac Exam: [Normal S1 and S2, no S3 gallop, no murmur.] Abdomen: [Soft, nontender, no megaly, no rebound, no guarding, normal bowel sounds.] Extremities: [No clubbing, no edema, no cyanosis.] Neurological Exam: Alert and oriented 3. [No focal neurologic deficit.] Psychiatric: Normal mood, affect normal mental status examination. Musculoskeletal: No deformities noted limitation range of motion. - Labs CBC & Chem 7: 07/09/20 03:51 07/09/20 03:51 Labs: Abnormal Lab Results - Last 24 Hours (Table) 07/08/20 07/08/20 07/09/20 Range/Units 12:13 21:29 03:51 RBC 3.71 L (4.30-5.90) m/uL Hgb 11.2 L (13.0-17.5) gm/dL Hct 31.9 L (39.0-53.0) % Chloride (98-107) mmol/L Glucose (74-99) mg/dL POC Glucose (mg/dL) 113 H 134 H (75-99) mg/dL Calcium (8.4-10.2) mg/dL Total Protein (6.3-8.2) g/dL Albumin (3.5-5.0) g/dL 07/09/20 07/09/20 07/09/20 Range/Units 03:51 06:30 11:40 RBC (4.30-5.90) m/uL Hgb (13.0-17.5) gm/dL Hct (39.0-53.0) % Chloride 109 H (98-107) mmol/L Glucose 120 H (74-99) mg/dL POC Glucose (mg/dL) 138 H 143 H (75-99) mg/dL Calcium 8.1 L (8.4-10.2) mg/dL Total Protein 5.2 L (6.3-8.2) g/dL Albumin 3.2 L (3.5-5.0) g/dL Assessment and Plan Assessment: Impression: Status post three-vessel CABG with HUTCHISON to LAD and SVG to obtuse margin and the ramus, postoperative day #3 Benign essential hypertension Type 2 diabetes Postoperative atelectasis, expected. Dyslipidemia. Strong family history of early onset ischemic heart disease. Degenerative joint disease. Type 2 diabetes. Lifelong nonsmoker. Recommendation: Continue present supportive care measures. Continue incentive spirometer. Encourage deep coughing and deep breathing and ambulation. Transfer out of the ICU to a cardiac/medical floor. Patient will likely have his left-sided chest tube removed today. Continue GI and DVT prophylaxis. Aspirin and Plavix statin and beta blockers. Encourage ambulation. Time with Patient: Less than 30
--- NOTE | 2020-07-09 12:13 | P.PN ---
Subjective Progress Note Date: 07/09/20 HISTORY OF PRESENT ILLNESS 59 years old male patient of Dr. Apodaca with past medical history of coronary artery disease with left main disease, history of hypertension, , h yperlipidemia, BPH, osteoarthritis with right hip replacement, family history of early onset coronary artery disease who was evaluated for chest pain by the primary care physician and underwent cardiac cath on 07/01 suggesting critical lesion involving the left main, 70-80% involving the ostium of intermediate coronary artery. Patient was referred to cardiothoracic surgery and underwent three-vessel coronary bypass grafting with HUTCHISON to LAD SVG to OM and SVG to the ramus with his right leg endoscopic vein harvest and exclusion of the left atrial appendix with 35mm atrial clip. Patient was evaluated today in the ICU, is extubated currently on room air and comfortable. He denies any chest pain or breathing difficulty is awake alert and oriented 3. Arm he denies any lower extremity edema. Last bowel movement was on Sunday. Patient has a mediastinal to and a left pleural chest tube with a total of 160 mL of serous output. No air leak . Pacer leads and in place. Mcdonald catheter is present. Normal saline is running at 50 mL per hour. Urine output is appropriate 07/08: Patient remains in the intensive care unit. He denies having any chest pain but has pain at the chest tube site. No abdominal pain. No nausea or vomiting. No lightheadedness or dizziness. 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 Chest x- ray reveals [place] removed. Mediastinal drainage catheter and left chest tube seems. Central pulmonary vasculature crowding May be due to low lung volumes persistent pulmonary vascular congestion. Cardiomediastinal silhouette stable. Mild patchy left basilar airspace opacities stable to decreased. He is reaching 1000 miles on incentive spirometry. Repeat blood work reveals WBC 9.5, hemoglobin 10.9, platelet count 155. Sodium 135, potassium 3.9, chloride 106, CO2 27, BUN 13 creatinine 0.71. Blood sugars running between 108 and 129. Mcdonald catheter was removed this morning. One chest tube to be removed today. 07/09: Patient remains in intensive care unit. He is sitting up in bed and appears to be in no acute distress. He denies any significant chest pain. No shortness of breath. No lightheadedness and dizziness with ambulating. He is reaching 1500 on incentive spirometry. He does complain of constipation and has had no bowel movement since he arrived and MiraLAX will be added daily. Patient received 1 dose of IV Lasix this morning. Repeat chest x-ray reveals interval removal of mediastinal drainage catheter. Persistent mild central vascular congestion and bibasilar atelectasis and low lung volumes. No significant change from previous. He has been afebrile, heart rate 93, blood pressure 133/83, pulse ox 97% on room air. tension machine operator is sinus tachycardia. The left pleural chest tube has been removed today. Patient was started on colchi cine for pericardial rub. Limited echocardiogram has been ordered and patient be transferred to the cardiac stepdown unit. REVIEW OF SYSTEMS Constitutional: No fever, no chills, no night sweats. No weight change. No weakness, fatigue or lethargy. No daytime sleepiness. EENT: No headache. No blurred vision or double vision, no loss of vision. No loss of Hearing, no ringing in the ears, no dizziness. No nasal drainage or congestion. No epistaxis. No sore throat. Lungs: No shortness of breath, cough, no sputum production. No wheezing. Cardiovascular: No chest pain. no lower extremity edema. No palpitations. No paroxysmal nocturnal dyspnea. No orthopnea. No lightheadedness or dizziness. No syncopal episodes. Abdominal: No abdominal pain. No nausea, vomiting. No diarrhea. No constipation. No bloody or tarry stools. No loss of appetite. Genitourinary: No dysuria, increased frequency, urgency. No urinary retention. Musculoskeletal: No myalgias. No muscle weakness, no gait dysfunction, no frequent falls. No back pain. No neck pain. Integumentary: No wounds, no lesions. No rash or pruritus. No unusual bruising. No change in hair or nails. Neurologic: No aphasia. No facial droop. No change in mentation. No head injury. No headache. No paralysis. No paresthesia. Psychiatric: No depression. No anxiety. Endocrine: No abnormal blood [id number]. PHYSICAL EXAMINATION Gen: This is a 59-year-old male patient. He is resting in bed and appears to be comfortable. HEENT: Head is atraumatic, normocephalic. Pupils equal, round. Sclerae is anicteric. NECK: Supple. No JVD. No lymphadenopathy. No thyromegaly. LUNGS: Clear to auscultation. No wheezes or rhonchi. No intercostal retractions. HEART: Regular rate and rhythm. No murmur. ABDOMEN: Soft. Bowel sounds are present. No masses. No tenderness. EXTREMITIES: No pedal edema. No calf tenderness. NEUROLOGICAL: Patient is awake, alert and oriented x3. Cranial nerves 2 through 12 are grossly intact. ASSESSMENT AND PLAN #1 postoperative day 2 coronary artery bypass grafting with HUTCHISON to LAD, SVG to the OM and SVG to the ramus with right leg endoscopic vein harvest and exclusion of the left atrial appendage. For significant coronary artery disease involving the LAD and intermediate vessel. Continue aspirin 325 mg, Lipitor 40 mg, Plavix 75 daily, metoprolol 25 mg 3 times a day. Colchicine started for pericardial rub. Echocardiogram limited pending. #2 hypertension continue metoprolol 25 twice a day # 3 hyperlipidemia continue Lipitor 40 mg daily #4 BPH continue tamsulosin 0.4 mg daily at bedtime. Patient has Mcdonald catheter, removed this morning. Encourage ambulation #5 Anemia expected outcome off surgery. Continue monitoring hemoglobin. Repeat CBC tomorrow #6 type 2 diabetes controlled with diet. Insulin sliding scale. A1c is 5.1 #7 CODE STATUS full code #8 DVT prophylaxis with heparin every 8 #9 GI prophylaxis with pantoprazole 40 mg daily DISCHARGE PLAN [facility]. Impression and plan of care have been directed as dictated by the signing physician. Gracia Quezada nurse practitioner acting as scribe for signing physician. Objective - Vital Signs Vital signs: Vital Signs Temp 98.6 F 07/09/20 04:00 Pulse 109 H 07/09/20 07:30 Resp 17 07/09/20 07:30 BP 94/83 07/09/20 07:30 Pulse Ox 94 L 07/09/20 07:30 Intake & Output 07/08/20 07/09/20 07/09/20 18:59 06:59 18:59 Intake Total 633 990 Output Total 975 1590 Balance -342 -600 Weight 126.6 kg Intake: IV 93 0.9 60 Pressure bag 33 Oral 540 990 Output: Chest Tube Drainage 75 165 Chest Tube Left Pleural/ 75 165 Mediastinal Urine 900 1425 Other: Voiding Method Toilet Urinal Urinal # Voids 1 0 0 # Bowel Movements 1 ABP, PAP, CO, CI - Last Documented Arterial Blood Pressure 103/41 Pulmonary Artery Pressure 23/9 Cardiac Output 7.7 Cardiac Index 3 - Labs CBC & Chem 7: 07/09/20 03:51 07/09/20 03:51 Labs: Abnormal Lab Results - Last 24 Hours (Table) 07/08/20 07/08/20 07/09/20 Range/Units 12:13 21:29 03:51 RBC 3.71 L (4.30-5.90) m/uL Hgb 11.2 L (13.0-17.5) gm/dL Hct 31.9 L (39.0-53.0) % Chloride (98-107) mmol/L Glucose (74-99) mg/dL POC Glucose (mg/dL) 113 H 134 H (75-99) mg/dL Calcium (8.4-10.2) mg/dL Total Protein (6.3-8.2) g/dL Albumin (3.5-5.0) g/dL 07/09/20 07/09/20 Range/Units 03:51 06:30 RBC (4.30-5.90) m/uL Hgb (13.0-17.5) gm/dL Hct (39.0-53.0) % Chloride 109 H (98-107) mmol/L Glucose 120 H (74-99) mg/dL POC Glucose (mg/dL) 138 H (75-99) mg/dL Calcium 8.1 L (8.4-10.2) mg/dL Total Protein 5.2 L (6.3-8.2) g/dL Albumin 3.2 L (3.5-5.0) g/dL
--- NOTE | 2020-07-09 12:13 | ECHOF ---
Referral Reason:assess for pericadial effusion MEASUREMENTS -------- HEIGHT: 162.6 cm WEIGHT: 126.6 kg BP: FINDINGS -------- Limited Study for pericardial effusion TDS due to CABG and Bandages. Lumason used Cant visualize due to poor suboptimal images. CONCLUSIONS -------- 1. Limited Study for pericardial effusion 2. TDS due to CABG and Bandages. 3. Cant visualize due to poor suboptimal images. CREATIVE STRATEGIST: Amanda Overton RDCS
[2020-07-09 16:35] LABS: Glucose,Whole Blood 104 mg/dL (75-99)
[2020-07-09] MEDS: SENNOSIDES-DOCUSATE SODIUM 1 EACH TAB PO SCH (22:00)
[2020-07-09] MEDS: TAMSULOSIN 0.4 MG CAP.ER.24H PO SCH (22:00)
[2020-07-09 22:50] LABS: Glucose,Whole Blood 119 mg/dL (75-99)
[2020-07-10 04:43] LABS: HGB 11.1 gm/dL (13.0-17.5); MCH 30.7 pg (25.0-35.0); MCHC 35.9 g/dL (31.0-37.0); MCV 85.6 fL (80.0-100.0); Mean Platelet Volume 7.3; Platelet Count 211 k/uL (150-450); RBC 3.62 m/uL (4.30-5.90); RDW 14.4 % (11.5-15.5); WBC 7.8 k/uL (3.8-10.6)
[2020-07-10 04:53] LABS: African American GFR (CKD) >90 (>60 ml/min/1.73 sqM); Anion Gap 6 mmol/L; Blood Urea Nitrogen 15 mg/dL (9-20); Calcium 8.7 mg/dL (8.4-10.2); Carbon Dioxide 29 mmol/L (22-30); Chloride 103 mmol/L (98-107); Glucose 109 mg/dL (74-99); Non-African American GFR(CKD) >90 (>60 ml/min/1.73 sqM); Sodium 138 mmol/L (137-145)
[2020-07-10] MEDS: IPRATROPIUM-ALBUTEROL 3 ML NEB INHALATION SCH ×4 (07:26→19:35)
[2020-07-10 07:35] LABS: Glucose,Whole Blood 117 mg/dL (75-99)
--- NOTE | 2020-07-10 07:36 | XR ---
EXAMINATION TYPE: XR chest 2V DATE OF EXAM: 07/10/2020 COMPARISON: 07/09/2020 HISTORY: Post open heart surgery TECHNIQUE: Frontal and lateral views of the chest are obtained. FINDINGS: There has been interval removal of the left chest tube. There is no pneumothorax. The lungs are clear. There is no pleural effusion. Heart size is normal and the pulmonary vasculature is not congested. The osseous structures are intact IMPRESSION: Interval removal of the left chest tube status post cardiac surgery. There is no pneumot horax. There is no acute cardiopulmonary disease.
[2020-07-10] MEDS: INSULIN ASPART (NovoLOG) 100 UNIT/ML VIAL SQ SCH ×4 (08:26→22:32)
[2020-07-10] MEDS: METOPROLOL TARTRATE 50 MG TAB PO SCH ×2 (08:38→22:00)
[2020-07-10] MEDS: ASPIRIN 325 MG TAB PO SCH (08:38)
[2020-07-10] MEDS: polyethylene glycoL 3350 17 GM POWD.PACK PO SCH (08:38)
[2020-07-10] MEDS: HEPARIN SODIUM,PORCINE/PF 5,000 UNIT/0.5 ML SYRINGE SQ SCH ×2 (08:38→17:27)
[2020-07-10] MEDS: CLOPIDOGREL 75 MG TAB PO SCH (08:38)
[2020-07-10] MEDS: ATORVASTATIN 40 MG TAB PO SCH (08:38)
[2020-07-10] MEDS: COLCHICINE 0.6 MG EACH PO SCH (08:38)
[2020-07-10] MEDS: PANTOPRAZOLE 40 MG TABLET PO SCH (08:38)
--- NOTE | 2020-07-10 10:28 | PN ---
PROGRESS NOTE Mr. Gan is a 59-year-old male who presented with symptoms of chest discomfort, abnormal stress test and had a cardiac catheterization and was found to have left main disease. Underwent coronary artery bypass grafting by Dr. Elena and received the HUTCHISON to LAD, saphenous vein graft to the ramus and saphenous vein graft to the obtuse marginal branch. He is doing well this morning. Sitting up in the chair. His breathing is stable. He denies any chest discomfort. He is in sinus mechanism. He is ambulating without difficulty. He has no evidence of hypotension. He has no nausea. He continues to be at this time on aspirin once a day, Plavix 75 mg daily, Lipitor 40 mg daily, colchicine 0.6 mg daily, metoprolol tartrate 50 mg twice a day, and Flomax 0.4 mg daily. PHYSICAL EXAMINATION: Blood pressure 130/60 with a heart rate in the low 100s and 90s. LUNGS: Clear to auscultation. No wheezes. HEART: Regular rate and rhythm S1, S2. No S3, plus rub. No gallop. ABDOMEN: Soft nontender. EXTREMITIES: No edema. LAB DATA: Lab data revealed BUN creatinine 15 and 0.73. Hemoglobin is 11.1, white blood cell of 7.8. IMPRESSION: 1. Status post coronary artery bypass grafting stable. 2. Sinus tachycardia stable. 3. Hypertension. 4. Hyperlipidemia. 5. Diabetes mellitus. RECOMMENDATION: We will continue present therapy. Continue to increase his level of activity and hopefully stable. I would expect he should be able to be discharged home in the next 24- 48 hours. MMODL / IJN: [id number] /
--- NOTE | 2020-07-10 10:39 | P.PN ---
Subjective Progress Note Date: 07/10/20 Principal diagnosis: Coronary artery disease with significant left main disease. Previous medical history of hyperlipidemia, BPH, osteoarthritis status post right hip replacement, lifelong nonsmoker, and family history of premature coronary artery disease with brother having PCI in his early 50s. POD #4 coronary artery bypass 3, left internal mammary artery to the left anter ior descending artery, reverse saphenous vein graft to the ramus coronary artery, reverse saphenous vein graft to the obtuse marginal coronary artery. Endoscopic vein harvest of the right greater saphenous vein. Ligation of the left atrial appendage using a 35 mm AtriClip. Epi-aortic ultrasound and intraoperative transesophageal echocardiogram. Excision of chest wall soft tissue mass. Postoperative acute blood loss anemia, expected due to hemodilution and cardiopulmonary bypass pump The patient's currently sitting up in a recliner in the intensive care unit in no acute distress. He states pain is controlled on current medication regimen, denies shortness of breath. Remains in sinus rhythm, hemodynamically stable. 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 Oxygenating well on room air in achieving 2000 mL on his incentive spirometry. Requesting to stay inpatient for 1 more day for strength training and to practice getting in and out of bed with physical therapy. Anticipate discharge to home tomorrow morning. Transfer orders were placed for 3 S. cardiac stepdown unit yesterday, however there is no bed availability. No other new concerns. Objective - Vital Signs Vital signs: Vital Signs Temp 98.3 F 07/10/20 09:00 Pulse 101 H 07/10/20 09:00 Resp 28 H 07/10/20 09:00 BP 128/77 07/10/20 09:00 Pulse Ox 95 07/10/20 09:00 Intake & Output 07/09/20 07/10/20 07/10/20 18:59 06:59 18:59 Intake Total 480 Output Total 4100 950 200 Balance -3620 -950 -200 Intake: Oral 480 Output: Urine 4100 950 200 Other: Voiding Method Toilet Toilet Urinal Urinal Urinal # Voids 0 ABP, PAP, CO, CI - Last Documented Arterial Blood Pressure 103/41 Pulmonary Artery Pressure 23/9 Cardiac Output 7.7 Cardiac Index 3 - Exam CONSTITUTIONAL: Appears comfortable, cooperative, no acute distress RESPIRATORY: Lungs sounds diminished bilaterally. Respirations even, nonlabor ed. Currently on room air with oxygen saturation 95%. Able to achieve 2000 mL on incentive spirometry. Strong cough. CARDIOVASCULAR: S1, S2 present. Regular rate and rhythm, sinus rhythm on tel emetry. Sternum stable. Palpable peripheral pulses bilaterally. No edema present. No calf pain or tenderness noted. Heart hugger in place with patient demonstrating appropriate use. Antiembolism stockings, SCDs present. GASTROINTESTINAL: Abdomen soft, nontender, nondistended. Active bowel sounds present 4 quadrants. Tolerating diet. Positive bowel movement. GENITOURINARY: Continues to void, output 5 L in the last 24 hours INTEGUMENTARY: Skin is warm and dry with evidence of good perfusion. Anterior chest incision well approximated and covered with dry intact dressing. EVH site well approximated without redness or drainage. NEUROLOGIC: Cranial nerves II through XII intact MUSKULOSKELETAL: Able to move all extremities, strength equal bilaterally, gait normal PSYCHIATRIC: Alert and oriented to person place and time, appropriate affect, intact judgment and insight - Allied health notes Allied health notes reviewed: nursing - Labs CBC & Chem 7: 07/10/20 04:20 07/10/20 04:20 Labs: Abnormal Lab Results - Last 24 Hours (Table) 07/09/20 07/09/20 07/09/20 Range/Units 11:40 16:33 22:48 RBC (4.30-5.90) m/uL Hgb (13.0-17.5) gm/dL Hct (39.0-53.0) % Glucose (74-99) mg/dL POC Glucose (mg/dL) 143 H 104 H 119 H (75-99) mg/dL 07/10/20 07/10/20 07/10/20 Range/Units 04:20 04:20 07:33 RBC 3.62 L (4.30-5.90) m/uL Hgb 11.1 L (13.0-17.5) gm/dL Hct 31.0 L (39.0-53.0) % Glucose 109 H (74-99) mg/dL POC Glucose (mg/dL) 117 H (75-99) mg/dL - Imaging and Cardiology Chest x-ray: report reviewed, image reviewed Assessment and Plan Assessment: 1. Coronary artery disease with significant left main disease, status post three-vessel CABG 2. Hypertension 3. Hyperlipidemia, untreated, cholesterol 135, LDL 66 4. BPH 5. Osteoarthritis status post right hip replacement 6. Lifelong nonsmoker, preoperative FEV1 was 62% of predicted 7. Family history of premature coronary artery disease with brother having PCI in his early 50s. Plan: 1. Continue aspirin, statin, Plavix, beta parveen therapy. Will increase beta parveen therapy as tolerated, increased to 50 mg twice a day today 2. Encourage incentive spirometry 10 times every hour while awake. Bronchodila tors per pulmonology 3. Will monitor daily labs and x-rays. Electrolyte replacement per protocol. No Lasix today 4. Increase activity, ambulate as tolerated. PT/OT/cardiac rehab following-instructed to teach patient how to get in and out of bed safely 5. GI/DVT prophylaxis 6. Pain control is current medication regimen 7. Insulin management per primary care service. Patient is not diabetic, preoperative hemoglobin A1c 5.1% 8. Transfer orders placed yesterday for 37 cardiac stepdown unit, May transfer when bed available 9. Discharge planning a progress. Anticipate discharge to home tomorrow with home care 10. More recommendations to follow Time with Patient: Greater than 30
--- NOTE | 2020-07-10 11:15 | P.PN ---
Subjective Progress Note Date: 07/10/20 Principal diagnosis: Status post CABG postoperative day #4 This is a 59-year-old white male patient of Dr. Apodaca, and had been complaining of a burning chest pain with moderate activities. Patient's medical history significant for hypertension, diabetes mellitus type 2, dyslipidemia, early onset heart disease in his family, BPH, osteoarthritis, patient is a lifetime nonsmoker and his . Patient underwent stress test because of chest pains, and developed ischemic changes associated with wall motion abnormalities involving the anterior wall and lateral wall. Patient had a cardiac catheterization on 07/01/2020 showing critical lesion involving the left main, moderate to severe disease involving the ostium of the small intermediate. Echocardiogram from 07/01/2020 showed low normal EF of 50-55%, no evidence of aortic stenosis or aortic regurgitation, mild TR, no evidence of pulmonary hypertension and right- sided pressure was 23.3 mmHg. Carotid ultrasound showed no evidence of hemodynamically significant stenosis and mild to moderate atherosclerotic plaque. Was referred to cardiothoracic surgery for possibility of surgical intervention, and on 07/06/2020 patient underwent three-vessel coronary bypass grafting with HUTCHISON to LAD, SVG to the OM, and SVG to the ramus, with right leg endoscopic vein harvest, and exclusion of the left atrial appendage with 35 mm Atriclip. Patient was seen in the postoperative period in the intensive care unit, he has extubated fairly quickly after arriving to the intensive care unit, he extubated within 2 hours of OR exit time. His currently on a few liters per nasal cannula, breathing comfortably, he is awake and alert, oriented 3, following commands, hemodynamically he is stable, 1 mediastinal and left pleural chest tubes connected together, and there is a total of 160 mL of serous output since surgery, no air leak, patient received 250 mL of 5% albumin, his PA pressures 35/15, CVP is 10, CO 8.0, and a cardiac index is 3.3. His total EBL was 2 L intraoperatively, and patient received Cell Saver crystalloids and 5% albumin, currently hemodynamically stable, he is on 0.9 normal seen at a rate of 50 ML per hour, and nitroglycerin drip is at 5 mics per kilo per minute. Patient was reevaluated today on 07/07/2020, remains in the ICU, patient is status post CABG, had three-vessel bypass, extubated yesterday within 2 hours after he arrived to the ICU. He is on 2 L nasal cannula with O2 sat showed 97%. He is only on insulin drip at 2.5 units per hour, not requiring any inotropes and not requiring any pressors. His cardiac output is 7.7 cardiac index is 3 his chest tube drained about 550 ML serosanguineous fluid in the last 24 hours. Ration is doing well with incentive spirometry, achieving over thousand cc. Chest x-ray showed minimal basilar atelectasis. No evidence of congestive heart failure. BC is relatively normal hemoglobin is 11.6. Basic metabolic profile is normal, renal profile is normal Reevaluated today on 07/08/2020, patient remains in the ICU, he is postoperative day #2, on 2 L nasal cannula with O2 sat showed 94%. He is doing well with incentive spirometry up to 1250 mL thereafter. Chest x-ray showed minimal atelectasis, no acute process is noted. Patient is about to have his chest tube removed. Not requiring any pressors, not requiring any hemodynamic support or inotropes. CBC is relatively normal hemoglobin is 10.9 electrolytes are normal renal profile is normal, chest x-ray was reviewed and she continues to have left-sided chest tube in place. His Mcdonald catheter has been removed this morning. Reevaluated today on 07/09/2020, patient remains in the ICU, he is postoperative day #3. Patient is on 2 L nasal cannula and O2 saturations 95%. Patient is doing extremely well. Relatively asymptomatic, sitting at a bedside chair, awake, alert, oriented 3, had no chest pain no shortness of breath. Patient is doing great with incentive spirometry. Left pleural chest tube remains in place, and no air leak noted. Had 250 ML of serosanguineous drainage in the last 24 hours. His mediastinal chest tube was removed yesterday. Chest x-ray is again reassuring. No evidence of pulmonary edema, no infiltrate. CBC is relatively normal basic metabolic profile is normal renal profile is normal. Reevaluated today on 07/10/2020, patient is now postoperative day #4, doing great, he is on room air, his lines and chest seems have been removed. And the patient is relatively asymptomatic. Patient is presently sitting in a recliner, doing extremely well with incentive spirometry, 2000 ml. Patient is being considered for discharge possibly tomorrow. He will be transferred to a monitor bed on selective today. Objective - Vital Signs Vital signs: Vital Signs Temp 98.3 F 07/10/20 09:00 Pulse 101 H 07/10/20 10:40 Resp 16 07/10/20 10:40 BP 128/77 07/10/20 09:00 Pulse Ox 95 07/10/20 09:00 Intake & Output 07/09/20 07/10/20 07/10/20 18:59 06:59 18:59 Intake Total 480 Output Total 4100 950 200 Balance -3620 -950 -200 Intake: Oral 480 Output: Urine 4100 950 200 Other: Voiding Method Toilet Toilet Urinal Urinal Urinal # Voids 0 ABP, PAP, CO, CI - Last Documented Arterial Blood Pressure 103/41 Pulmonary Artery Pressure 23/9 Cardiac Output 7.7 Cardiac Index 3 - Exam Physical Exam revealed a 59-year-old white male in no distress. Presently on room air. Head: Atraumatic, normocephalic. HEENT:[Neck is supple.] [No neck masses.] [No thyromegaly.] [No JVD.] Chest: [Symmetrical chest expansion, clear bilaterally, no rhonchi no wheezes Cardiac Exam: [Normal S1 and S2, no S3 gallop, no murmur.] Abdomen: [Soft, nontender, no megaly, no rebound, no guarding, normal bowel sounds.] Extremities: [No clubbing, no edema, no cyanosis.] Neurological Exam: Alert and oriented 3. Psychiatric: Normal mood, affect normal mental status examination. Musculoskeletal: Unremarkable. - Labs CBC & Chem 7: 07/10/20 04:20 07/10/20 04:20 Labs: Abnormal Lab Results - Last 24 Hours (Table) 07/09/20 07/09/20 07/09/20 Range/Units 11:40 16:33 22:48 RBC (4.30-5.90) m/uL Hgb (13.0-17.5) gm/dL Hct (39.0-53.0) % Glucose (74-99) mg/dL POC Glucose (mg/dL) 143 H 104 H 119 H (75-99) mg/dL 07/10/20 07/10/20 07/10/20 Range/Units 04:20 04:20 07:33 RBC 3.62 L (4.30-5.90) m/uL Hgb 11.1 L (13.0-17.5) gm/dL Hct 31.0 L (39.0-53.0) % Glucose 109 H (74-99) mg/dL POC Glucose (mg/dL) 117 H (75-99) mg/dL Assessment and Plan Assessment: Impression: Status post three-vessel CABG with HUTCHISON to LAD and SVG to obtuse margin and the ramus, postoperative day #4 Benign essential hypertension Type 2 diabetes Postoperative atelectasis, expected. Dyslipidemia. Strong family history of early onset ischemic heart disease. Degenerative joint disease. Type 2 diabetes. Lifelong nonsmoker. Recommendation: Continue incentive spirometer. Chest x-ray was reviewed, unremarkable. No significant clinical findings.Continue GI and DVT prophylaxis. Aspirin and Plavix statin and beta blockers. Encourage ambulation. Discharge home in the next 24 hours Time with Patient: Less than 30
[2020-07-10 11:53] LABS: Glucose,Whole Blood 114 mg/dL (75-99)
--- NOTE | 2020-07-10 12:16 | P.PN ---
Subjective Progress Note Date: 07/10/20 HISTORY OF PRESENT ILLNESS 59 years old male patient of Dr. Apodaca with past medical history of coronary artery disease with left main disease, history of hypertension, , h yperlipidemia, BPH, osteoarthritis with right hip replacement, family history of early onset coronary artery disease who was evaluated for chest pain by the primary care physician and underwent cardiac cath on 07/01 suggesting critical lesion involving the left main, 70-80% involving the ostium of intermediate coronary artery. Patient was referred to cardiothoracic surgery and underwent three-vessel coronary bypass grafting with HUTCHISON to LAD SVG to OM and SVG to the ramus with his right leg endoscopic vein harvest and exclusion of the left atrial appendix with 35mm atrial clip. Patient was evaluated today in the ICU, is extubated currently on room air and comfortable. He denies any chest pain or breathing difficulty is awake alert and oriented 3. Arm he denies any lower extremity edema. Last bowel movement was on Sunday. Patient has a mediastinal to and a left pleural chest tube with a total of 160 mL of serous output. No air leak . Pacer leads and in place. Mcdonald catheter is present. Normal saline is running at 50 mL per hour. Urine output is appropriate 07/08: Patient remains in the intensive care unit. He denies having any chest pain but has pain at the chest tube site. No abdominal pain. No nausea or vomiting. No lightheadedness or dizziness. He has been afebrile, heart rate 112, blood pressure 104/58, pulse ox 95% school lunch monitor sinus rhythm. Chest x- ray reveals [place] removed. Mediastinal drainage catheter and left chest tube seems. Central pulmonary vasculature crowding May be due to low lung volumes persistent pulmonary vascular congestion. Cardiomediastinal silhouette stable. Mild patchy left basilar airspace opacities stable to decreased. He is reaching 1000 miles on incentive spirometry. Repeat blood work reveals WBC 9.5, hemoglobin 10.9, platelet count 155. Sodium 135, potassium 3.9, chloride 106, CO2 27, BUN 13 creatinine 0.71. Blood sugars running between 108 and 129. Mcdonald catheter was removed this morning. One chest tube to be removed today. 07/09: Patient remains in intensive care unit. He is sitting up in bed and appears to be in no acute distress. He denies any significant chest pain. No shortness of breath. No lightheadedness and dizziness with ambulating. He is reaching 1500 on incentive spirometry. He does complain of constipation and has had no bowel movement since he arrived and MiraLAX will be added daily. Patient received 1 dose of IV Lasix this morning. Repeat chest x-ray reveals interval removal of mediastinal drainage catheter. Persistent mild central vascular congestion and bibasilar atelectasis and low lung volumes. No significant change from previous. He has been afebrile, heart rate 93, blood pressure 133/83, pulse ox 97% on room air. school lunch monitor is sinus tachycardia. The left pleural chest tube has been removed today. Patient was started on colchi cine for pericardial rub. Limited echocardiogram has been ordered and patient be transferred to the cardiac stepdown unit. 07/10: Patient continues to do very well in the postop period. He has been ambulating well in the hallway. No chest pain, no shortness of breath, no l ightheadedness or dizziness. He is waiting for bed on the cardiac stepdown unit. Possible discharge tomorrow. Patient has been afebrile, heart rate 101, respiratory rate 28, blood pressure 128/77, pulse ox 95% on room air. Repeat blood work reveals WBC 7.8, hemoglobin 11.1, platelet count 211. Electrolytes are all normal, creatinine 0.73. Blood sugars are running between 104 and 119. Limited echocardiogram from yesterday revealed limited study for pericardial effusion. REVIEW OF SYSTEMS Constitutional: No fever, no chills, no night sweats. No weight change. No weakness, fatigue or lethargy. No daytime sleepiness. EENT: No headache. No blurred vision or double vision, no loss of vision. No dizziness. No nasal drainage or congestion. No epistaxis. No sore throat. Lungs: No shortness of breath, cough, no sputum production. No wheezing. Cardiovascular: No chest pain. no lower extremity edema. No palpitations. No paroxysmal nocturnal dyspnea. No orthopnea. No lightheadedness or dizziness. No syncopal episodes. Abdominal: No abdominal pain. No nausea, vomiting. No diarrhea. No constipation. No bloody or tarry stools. No loss of appetite. Genitourinary: No dysuria, increased frequency, urgency. No urinary retention. Musculoskeletal: No myalgias. No muscle weakness, no gait dysfunction, no frequent falls. No back pain. No neck pain. Integumentary: No wounds, no lesions. No rash or pruritus. No unusual bruising. No change in hair or nails. Neurologic: No aphasia. No facial droop. No change in mentation. No head injury. No headache. No paralysis. No paresthesia. Psychiatric: No depression. No anxiety. Endocrine: No abnormal blood [id number]. PHYSICAL EXAMINATION Gen: This is a 59-year-old male patient. He is seen ambulating in the hallway and gait is steady. HEENT: Head is atraumatic, normocephalic. Pupils equal, round. Sclerae is anicteric. NECK: Supple. No JVD. No lymphadenopathy. No thyromegaly. LUNGS: Clear to auscultation. No wheezes or rhonchi. No intercostal retractions. HEART: Regular rate and rhythm. No murmur. ABDOMEN: Soft. Bowel sounds are present. No masses. No tenderness. EXTREMITIES: No pedal edema. No calf tenderness. NEUROLOGICAL: Patient is awake, alert and oriented x3. Cranial nerves 2 through 12 are grossly intact. ASSESSMENT AND PLAN #1 postoperative day 4 coronary artery bypass grafting with HUTCHISON to LAD, SVG to the OM and SVG to the ramus with right leg endoscopic vein harvest and exclusion of the left atrial appendage. For significant coronary artery disease involving the LAD and intermediate vessel. Continue aspirin 325 mg, Lipitor 40 mg, Plavix 75 daily, metoprolol 50 mg 2 times a day. Colchicine started for pericardial rub. Echocardiogram limited pending. #2 hypertension continue metoprolol 50 twice a day # 3 hyperlipidemia continue Lipitor 40 mg daily #4 BPH continue tamsulosin 0.4 mg daily at bedtime. Encourage ambulation #5 Anemia expected outcome off surgery. Continue monitoring hemoglobin. Repeat CBC tomorrow #6 type 2 diabetes controlled with diet. Insulin sliding scale. A1c is 5.1 #7 CODE STATUS full code #8 DVT prophylaxis with heparin every 8 #9 GI prophylaxis with pantoprazole 40 mg daily DISCHARGE PLAN Home with [facility]. Impression and plan of care have been directed as dictated by the signing physician. Gracia Quezada nurse practitioner acting as scribe for signing physician. Objective - Vital Signs Vital signs: Vital Signs Temp 98.3 F 07/10/20 09:00 Pulse 101 H 07/10/20 09:00 Resp 28 H 07/10/20 09:00 BP 128/77 07/10/20 09:00 Pulse Ox 95 07/10/20 09:00 Intake & Output 07/09/20 07/10/20 07/10/20 18:59 06:59 18:59 Intake Total 480 Output Total 4100 950 200 Balance -3620 -950 -200 Intake: Oral 480 Output: Urine 4100 950 200 Other: Voiding Method Toilet Toilet Urinal Urinal Urinal # Voids 0 ABP, PAP, CO, CI - Last Documented Arterial Blood Pressure 103/41 Pulmonary Artery Pressure 23/9 Cardiac Output 7.7 Cardiac Index 3 - Labs CBC & Chem 7: 07/10/20 04:20 07/10/20 04:20 Labs: Abnormal Lab Results - Last 24 Hours (Table) 07/09/20 07/09/20 07/09/20 Range/Units 11:40 16:33 22:48 RBC (4.30-5.90) m/uL Hgb (13.0-17.5) gm/dL Hct (39.0-53.0) % Glucose (74-99) mg/dL POC Glucose (mg/dL) 143 H 104 H 119 H (75-99) mg/dL 07/10/20 07/10/20 07/10/20 Range/Units 04:20 04:20 07:33 RBC 3.62 L (4.30-5.90) m/uL Hgb 11.1 L (13.0-17.5) gm/dL Hct 31.0 L (39.0-53.0) % Glucose 109 H (74-99) mg/dL POC Glucose (mg/dL) 117 H (75-99) mg/dL
[2020-07-10 16:52] LABS: Glucose,Whole Blood 125 mg/dL (75-99)
[2020-07-10] MEDS: TAMSULOSIN 0.4 MG CAP.ER.24H PO SCH (22:00)
[2020-07-10] MEDS: SENNOSIDES-DOCUSATE SODIUM 1 EACH TAB PO SCH (22:00)
[2020-07-10 22:19] LABS: Glucose,Whole Blood 115 mg/dL (75-99)
[2020-07-11] MEDS: HEPARIN SODIUM,PORCINE/PF 5,000 UNIT/0.5 ML SYRINGE SQ SCH ×2 (00:14→09:11)
[2020-07-11 04:47] LABS: HCT 31.1 % (39.0-53.0); HGB 10.9 gm/dL (13.0-17.5); MCV 85.7 fL (80.0-100.0); Mean Platelet Volume 7.2; Platelet Count 265 k/uL (150-450); RBC 3.62 m/uL (4.30-5.90); RDW 14.4 % (11.5-15.5); WBC 8.7 k/uL (3.8-10.6)
[2020-07-11 05:01] LABS: African American GFR (CKD) >90 (>60 ml/min/1.73 sqM); Anion Gap 7 mmol/L; Blood Urea Nitrogen 14 mg/dL (9-20); Calcium 8.8 mg/dL (8.4-10.2); Carbon Dioxide 28 mmol/L (22-30); Chloride 102 mmol/L (98-107); Glucose 115 mg/dL (74-99); Non-African American GFR(CKD) >90 (>60 ml/min/1.73 sqM); Potassium 3.9 mmol/L (3.5-5.1); Sodium 137 mmol/L (137-145)
[2020-07-11 05:05] VITALS: BP 123/80
--- NOTE | 2020-07-11 07:52 | P.PN ---
Subjective Progress Note Date: 07/11/20 Principal diagnosis: Coronary artery disease with significant left main disease. Previous medical history of hyperlipidemia, BPH, osteoarthritis status post right hip replacement, lifelong nonsmoker, and family history of premature coronary artery disease with brother having PCI in his early 50s. POD #5 coronary artery bypass 3, left internal mammary artery to the left anter ior descending artery, reverse saphenous vein graft to the ramus coronary artery, reverse saphenous vein graft to the obtuse marginal coronary artery. Endoscopic vein harvest of the right greater saphenous vein. Ligation of the left atrial appendage using a 35 mm AtriClip. Epi-aortic ultrasound and intraoperative transesophageal echocardiogram. Excision of chest wall soft tissue mass. Postoperative acute blood loss anemia, expected due to hemodilution and cardiopulmonary bypass pump The patient's currently sitting up in a recliner in the intensive care unit in no acute distress. He states pain is controlled on current medication regimen, denies shortness of breath. His only complaint is of lack of sleep. Remains in sinus rhythm, hemodynamically stable. Has been ambulating in the hallway without difficulty, received first postop shower yesterday. Has worked with physical therapy on getting in and out of bed. Oxygenating well on room air and achieving 2000 mL on his incentive spirometry. No other new concerns. Objective - Vital Signs Vital signs: Vital Signs Temp 98.5 F 07/11/20 04:00 Pulse 105 H 07/11/20 05:00 Resp 24 07/11/20 05:00 BP 123/80 07/11/20 05:00 Pulse Ox 94 L 07/11/20 05:00 Intake & Output 07/10/20 07/11/20 07/11/20 18:59 06:59 18:59 Output Total 200 950 Balance -200 -950 Weight 124.5 kg Output: Urine 200 950 Other: Voiding Method Urinal Urinal # Voids 0 ABP, PAP, CO, CI - Last Documented Arterial Blood Pressure 103/41 Pulmonary Artery Pressure 23/9 Cardiac Output 7.7 Cardiac Index 3 - Exam CONSTITUTIONAL: Appears comfortable, cooperative, no acute distress RESPIRATORY: Lungs sounds diminished bilaterally. Respirations even, nonlabored. Currently on room air with oxygen saturation 93%. Able to achieve 2000 mL on incentive spirometry. Strong cough. CARDIOVASCULAR: S1, S2 present. Regular rate and rhythm, sinus rhythm on telemetry. Sternum stable. Palpable peripheral pulses bilaterally. No edema present. No calf pain or tenderness noted. Heart hugger in place with patient demonstrating appropriate use. Antiembolism stockings, SCDs present. GASTROINTESTINAL: Abdomen soft, nontender, nondistended. Active bowel sounds p resent 4 quadrants. Tolerating diet. Positive bowel movement. GENITOURINARY: Continues to void INTEGUMENTARY: Skin is warm and dry with evidence of good perfusion. Anterior chest incision well approximated and covered with dry intact dressing. EVH site well approximated without redness or drainage. NEUROLOGIC: Cranial nerves II through XII intact MUSKULOSKELETAL: Able to move all extremities, strength equal bilaterally, gait normal PSYCHIATRIC: Alert and oriented to person place and time, appropriate affect, intact judgment and insight - Allied health notes Allied health notes reviewed: nursing - Labs CBC & Chem 7: 07/11/20 04:24 07/11/20 04:24 Labs: Abnormal Lab Results - Last 24 Hours (Table) 07/10/20 07/10/20 07/10/20 Range/Units 11:52 16:50 22:17 RBC (4.30-5.90) m/uL Hgb (13.0-17.5) gm/dL Hct (39.0-53.0) % Glucose (74-99) mg/dL POC Glucose (mg/dL) 114 H 125 H 115 H (75-99) mg/dL 07/11/20 07/11/20 Range/Units 04:24 04:24 RBC 3.62 L (4.30-5.90) m/uL Hgb 10.9 L (13.0-17.5) gm/dL Hct 31.1 L (39.0-53.0) % Glucose 115 H (74-99) mg/dL POC Glucose (mg/dL) (75-99) mg/dL - Imaging and Cardiology Chest x-ray: image reviewed Assessment and Plan Assessment: 1. Coronary artery disease with significant left main disease, status post three-vessel CABG 2. Hypertension 3. Hyperlipidemia, untreated, cholesterol 135, LDL 66 4. BPH 5. Osteoarthritis status post right hip replacement 6. Lifelong nonsmoker, preoperative FEV1 was 62% of predicted 7. Family history of premature coronary artery disease with brother having PCI in his early 50s. Plan: 1. Continue aspirin, statin, Plavix, beta parveen therapy. 2. Encourage incentive spirometry 10 times every hour while awake. Bronchodilators per pulmonology 3. No Lasix today 4. Increase activity, ambulate as tolerated. PT/OT/cardiac rehab following 5. GI/DVT prophylaxis 6. Pain control is current medication regimen 7. Insulin management per primary care service. Patient is not diabetic, preoperative hemoglobin A1c 5.1% 8. Discharge planning in progress. Anticipate discharge to home with home care today 9. More recommendations to follow Time with Patient: Greater than 30
--- NOTE | 2020-07-11 07:54 | XR ---
EXAMINATION TYPE: XR chest 2V DATE OF EXAM: 07/11/2020 COMPARISON: 07/10/2020 HISTORY: Postcardiac surgery TECHNIQUE: Frontal and lateral views of the chest are obtained. FINDINGS: There is mild atelectasis in the lung bases bilaterally unchanged compared to the prior st udy. There is a tiny left pleural effusion which is also stable. Heart size is normal pulmonary vasculature is not congested. There are median sternotomy wires. There is been interval insertion of a right-sided PICC line. IMPRESSION: Tiny left pleural effusion and mild bibasilar atelectasis, unchanged compared to the criss or study.
[2020-07-11] MEDS: IPRATROPIUM-ALBUTEROL 3 ML NEB INHALATION SCH (08:32)
[2020-07-11] MEDS: INSULIN ASPART (NovoLOG) 100 UNIT/ML VIAL SQ SCH (08:45)
[2020-07-11 09:03] VITALS: PULSE 110; RESP 18
[2020-07-11] MEDS: ASPIRIN 325 MG TAB PO SCH (09:11)
[2020-07-11] MEDS: PANTOPRAZOLE 40 MG TABLET PO SCH (09:11)
[2020-07-11] MEDS: CLOPIDOGREL 75 MG TAB PO SCH (09:11)
[2020-07-11] MEDS: METOPROLOL TARTRATE 50 MG TAB PO SCH (09:11)
[2020-07-11] MEDS: ATORVASTATIN 40 MG TAB PO SCH (09:11)
[2020-07-11] MEDS: polyethylene glycoL 3350 17 GM POWD.PACK PO SCH (09:18)
[2020-07-11] MEDS: COLCHICINE 0.6 MG EACH PO SCH (09:18)
[2020-07-11 09:33] VITALS: TEMP 97.7
--- NOTE | 2020-07-11 09:40 | PN ---
PROGRESS NOTE Mr. Gan is 59-year-old male who underwent coronary artery bypass grafting. He is doing well this morning. He has some musculoskeletal chest pain, otherwise his breathing is stable. He denies any dizziness or palpitation. He denies any nausea. He is in sinus mechanism. Hemodynamically, he is stable. He continued to be on aspirin once a day, Plavix 75 mg daily, Lipitor 40 mg daily, metoprolol tartrate 50 mg twice a day. PHYSICAL EXAMINATION: Blood pressure 123/80 with a heart rate in 90s, afebrile. LUNGS: Clear. HEART: Regular rate and rhythm S1, S2. No S3 with rub. No gallop. ABDOMEN: Soft, nontender. EXTREMITIES: No edema. LAB DATA: Lab data revealed a hemoglobin 10.9, BUN and creatinine 14 and 0.75, potassium 3.9. IMPRESSION: 1. Status post coronary artery bypass grafting, stable. 2. Sinus tachycardia, improving gradually. 3. History of hypertension. 4. Hyperlipidemia. 5. Diabetes mellitus. RECOMMENDATION: We will continue present therapy. Continue incentive spirometry. Follow his rhythm and adjust his medication accordingly. Depending on his progress, further recommendation will be made. MMODL / IJN: [id number] /
--- NOTE | 2020-07-11 10:07 | P.DS ---
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 Course: FINAL DIAGNOSIS: 1. Coronary artery disease with significant left main disease 2. Hypertension 3. Hyperlipidemia, treated, cholesterol 135, LDL 66 4. BPH, maintained on Flomax 5. Osteoarthritis, status post right hip replacement 6. Lifelong nonsmoker, preoperative FEV1 62% of predicted 7. Family history of premature coronary artery disease 8. Postoperative acute blood loss anemia, expected PRINCIPAL PROCEDURE: 1. Coronary artery bypass 3, left internal mammary artery to the left anterior descending artery, reverse saphenous vein graft to the ramus coronary artery, reverse saphenous vein graft to the obtuse marginal coronary artery 2. Endoscopic vein harvest of the right greater saphenous vein 3. Ligation of the left atrial appendage using a 35 mm AtriClip 4. Epi-aortic ultrasound and intraoperative transesophageal echocardiogram 5. Excision of chest wall soft tissue mass HISTORY OF PRESENT ILLNESS: This is a 59-year-old active gentleman who follows on an outpatient basis with Dr. Apodaca for primary care. Over the previous several months the patient had been experiencing burning sensation in his throat with strenuous activity associated with some shortness of breath. He was sent for stress test which demonstrated downsloping ST segment in the inferior lateral leads associated with chest pain and tightness. He was further recommended to undergo heart catheterization which demonstrated critical lesion involving the left main coronary artery and 70-80% stenosis near the ostium of the intermediate coronary artery. Consultation was placed to Dr. Elena from cardiothoracic surgery. He was recommended to undergo elective coronary artery bypass surgery. The usual perioperative course was discussed in detail with the patient and his family, all risks and benefits were explained, all questions were answered, and consent was obtained to proceed with surgery. The patient was discharged to home on maximal medical therapy to return as an outpatient for surgery at the earliest possible date. HOSPITAL COURSE: The patient was brought to the hospital on 07/06/2020, taken to the preoperative area, prepared in the usual fashion, and subsequently taken to the operating room where Dr. Elena performed three-vessel CABG. Upon completion of surgery the patient was transferred to the cardiovascular intensive care unit where he was recovered and monitored hemodynamically. He was extubated, all lines, tubes, and drips were discontinued when appropriate, and [transfer orders were placed for 3 S. cardiac stepdown unit, however there was no bed availability and the patient remained on ICU as a stepdown patient until discharge.]he was transferred to 3 S. cardiac stepdown unit for further monitoring and rehabilitation. His oxygen was titrated down, he continued to work with physical and occupational therapy, he was tolerating oral diet, his pain was controlled, and he was ready to be discharged to home with [facility] care on postoperative day #5. He received written and verbal instruction regarding his medications, activity restrictions, signs and symptoms requiring physician notification, and follow-up appointments. COMPLICATIONS: The patient experienced no postoperative complications. Patient Condition at Discharge: Stable Plan - Discharge Summary Discharge Rx Participant: Yes New Discharge Prescriptions: New Clopidogrel [Plavix] 75 mg PO DAILY #30 tab Pantoprazole [Protonix] 40 mg PO AC-BRKFST #30 tablet.dr Acetaminophen Tab [Tylenol] 1,000 mg PO Q6HR PRN tab PRN Reason: Fever And/ Or Pain Aspirin 325 mg PO DAILY #30 tab Atorvastatin [Lipitor] 40 mg PO DAILY #30 tab Metoprolol Tartrate [Lopressor] 50 mg PO BID #60 tab polyethylene glycoL 3350 [Miralax] 17 gm PO DAILY powd.pack Sennosides-Docusate Sodium [Senokot-S] 2 each PO HS PRN tab PRN Reason: Constipation Continue Tamsulosin [Flomax] 0.4 mg PO HS Ubidecarenone [Co Q-10] 100 mg PO HS Discontinued Aspirin 81 mg PO DAILY #30 chewable Metoprolol Tartrate 25 mg PO BID #60 tab Atorvastatin [Lipitor] 10 mg PO HS Nitroglycerin Sl Tabs [Nitrostat] 0.4 mg SUBLINGUAL Q5M PRN #25 tab PRN Reason: Chest Pain Discharge Medication List Tamsulosin [Flomax] 0.4 mg PO HS 05/26/21 [History] Ubidecarenone [Co Q-10] 100 mg PO HS 06/30/20 [History] Acetaminophen Tab [Tylenol] 1,000 mg PO Q6HR PRN tab 07/11/20 [Rx] Aspirin 325 mg PO DAILY #30 tab 07/11/20 [Rx] Atorvastatin [Lipitor] 40 mg PO DAILY #30 tab 07/11/20 [Rx] Clopidogrel [Plavix] 75 mg PO DAILY #30 tab 07/11/20 [Rx] Metoprolol Tartrate [Lopressor] 50 mg PO BID #60 tab 07/11/20 [Rx] Pantoprazole [Protonix] 40 mg PO AC-BRKFST #30 tablet.dr 07/11/20 [Rx] Sennosides-Docusate Sodium [Senokot-S] 2 each PO HS PRN tab 07/11/20 [Rx] polyethylene glycoL 3350 [Miralax] 17 gm PO DAILY powd.pack 07/11/20 [Rx] Follow up Appointment(s)/Referral(s): Marsha Golden MD [STAFF PHYSICIAN] - 08/05/20 9:30 am Amanda Wallace NPC [Nurse Practitioner] - 07/15/20 1:30 pm (will see in surgeon's office behind the [facility], [address], [address]) Rehab [facility] [NON-STAFF] - 1 Week (You will be called approximately 4 weeks after surgery for evaluation for cardiac rehab) Sabino Apodaca MD [Primary Care Provider] - 2 Weeks (Office will call with appointment time) [facility], [NON-STAFF] - 1-2 Days Jonel Elena MD [STAFF PHYSICIAN] - 08/02/20 10:00 am Migel Oh MD [STAFF PHYSICIAN] - 07/26/20 10:15 am Ambulatory/Diagnostic Orders: Complete Blood Count w/diff [LAB.AMB] Time Frame: 3 Days, Location: None Selected Comprehensive Metabolic Panel [LAB.AMB] Time Frame: 3 Days, Location: None Selected Activity/Diet/Wound Care/Special Instructions: DISCHARGE INSTRUCTIONS: 1. No driving for 4 weeks, or until physician gives their ok. 2. The patient should sleep in their own bed, no medical bed needed. 3. Stairs are not an issue. If the bedroom is upstairs, it is advised that the patient go up at night and down in the morning for the first week. Go slowly, using handrail and take 1 step at a time. 4. ALBERTO hose are to be worn for 30 days or until physician discontinues. 5. Heart hugger is to be worn 100% of the time until physician discontinues.(except when showering) 6. No lifting, pushing, or pulling more than 10 pounds for 12 weeks. The physician will advise of any restriction changes. 7. The patient is expected to continue the prescribed walking program. 8. Continue pain control per as needed orders. 9. Continue with incentive spirometry and splinting/heart hugger until otherwise directed by the physician. 10. Must shower daily using liquid antibacterial soap and a separate white washcloth for each individual incision. 11. Routine sternal incision care. No powders, lotions, ointments on incisions. No dressings are necessary on incisions unless they are draining. Dermabond tape is to remain on sternal incision until surgeon follow-up. 12. Please call surgeon/FACULTY SUPPORT COORDINATOR for temp greater than 101 F or purulent drainage from incisions. 13. All prescriptions given by surgeon for 30 days. Refills need to be filled through warehouse unloader/primary care physician. 14. A Red armband has been placed on the patient. It should be worn for 30 days post surgery and will be removed by the cardiac surgeons. If an ER visit is necessary, please make sure the number on the Red armband is called. 15. You have been referred to and are expected to begin Cardiac Rehab in approximately 4-6 weeks. HOME HEALTH SERVICES TO PROVIDE: RN SKILLED HOME CARE SERVICES FOR POST-OP SURGICAL PATIENTS WITH THE FOLLOWING: Coronary Artery Bypass Surgery (CABG), Mitral Valve Replacement/Repair ( MVR), Aortic Valve Replacement/Repair (AVR) RN TO CONTINUE EDUCATION FROM ``ROAD TO A HEALTH HEART PATIENT EDUCATION MANUAL (GIVEN TO PATIENT IN THE HOSPITAL) MEDICATION RECONCILIATION WITH EDUCATION NEEDED ON FIRST HOME VISIT EMPHASIZE IMPORTANCE OF WEARING BREAST SUPPORT/HEART HUGGER ENCOURAGE USE OF INCENTIVE SPIROMETER 10 X EVERY HOUR WHILE AWAKE ENCOURAGE UTILIZATION OF LOWER EXTREMITY COMPRESSION STOCKINGS/ALBERTO HOSE and ELEVATE LEGS ABOVE LEVEL OF HEART WHILE AT REST. ENCOURAGE AMBULATION 3-5x/day INCREASING TOLERATES, WHILE AVOIDING EXTREMES IN TEMPERATURE FREQUENCY: RN TO OPEN THE PATIENT WITHIN 24 HOURS OF DISCHARGE FROM THE HOSPITAL WITH TELEHEALTH INSTALLED AT [facility], RN TO VISIT 2-3 X A WEEK FOR 4 WEEKS ESTABLISHED BY PATIENT NEEDS. LABORATORY: CBC, CMP TO BE DRAWN ON THE THIRD DAY HOME, (RAN STAT) FAX RESULTS TO [phone]. TELEHEALTH PARAMETERS: WEIGHT: NOTIFY MD OF WEIGHT GAIN OF 2 LBS IN 24 HOURS OR 5 LBS IN ONE WEEK HR: NOTIFY MD OF HR <55 BPM OR HR>100 BPM BP: NOTIFY MD IF BP <90/55 OR BP>140/100 O2 SAT: NOTIFY MD IF PO2<93% ON ROOM AIR SEND TELEHEALTH REPORT TO NETWORK ADMINISTRATOR AND CARDIOVASCULAR SURGEON THE FIRST WEEK OF CARE AND THEN BI-WEEKLY. PLEASE ADDITIONALLY COMMUNICATE ANY ABNORMALS AND NEW FINDINGS TO THE SURGEONS OFFICE. For any questions or concerns please call check and transfer beader Amanda @ or Tyshawn @ Discharge Disposition: HOME WITH HOME HEALTH SERVICES
--- NOTE | 2020-07-11 11:10 | P.PN ---
Subjective Progress Note Date: 07/11/20 HISTORY OF PRESENT ILLNESS 59 years old male patient of Dr. Apodaca with past medical history of coronary artery disease with left main disease, history of hypertension, , h yperlipidemia, BPH, osteoarthritis with right hip replacement, family history of early onset coronary artery disease who was evaluated for chest pain by the primary care physician and underwent cardiac cath on 07/01 suggesting critical lesion involving the left main, 70-80% involving the ostium of intermediate coronary artery. Patient was referred to cardiothoracic surgery and underwent three-vessel coronary bypass grafting with HUTCHISON to LAD SVG to OM and SVG to the ramus with his right leg endoscopic vein harvest and exclusion of the left atrial appendix with 35mm atrial clip. Patient was evaluated today in the ICU, is extubated currently on room air and comfortable. He denies any chest pain or breathing difficulty is awake alert and oriented 3. Arm he denies any lower extremity edema. Last bowel movement was on Sunday. Patient has a mediastinal to and a left pleural chest tube with a total of 160 mL of serous output. No air leak . Pacer leads and in place. Mcdonald catheter is present. Normal saline is running at 50 mL per hour. Urine output is appropriate 07/08: Patient remains in the intensive care unit. He denies having any chest pain but has pain at the chest tube site. No abdominal pain. No nausea or vomiting. No lightheadedness or dizziness. 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 Chest x- ray reveals [place] removed. Mediastinal drainage catheter and left chest tube seems. Central pulmonary vasculature crowding May be due to low lung volumes persistent pulmonary vascular congestion. Cardiomediastinal silhouette stable. Mild patchy left basilar airspace opacities stable to decreased. He is reaching 1000 miles on incentive spirometry. Repeat blood work reveals WBC 9.5, hemoglobin 10.9, platelet count 155. Sodium 135, potassium 3.9, chloride 106, CO2 27, BUN 13 creatinine 0.71. Blood sugars running between 108 and 129. Mcdonald catheter was removed this morning. One chest tube to be removed today. 07/09: Patient remains in intensive care unit. He is sitting up in bed and appears to be in no acute distress. He denies any significant chest pain. No shortness of breath. No lightheadedness and dizziness with ambulating. He is reaching 1500 on incentive spirometry. He does complain of constipation and has had no bowel movement since he arrived and MiraLAX will be added daily. Patient received 1 dose of IV Lasix this morning. Repeat chest x-ray reveals interval removal of mediastinal drainage catheter. Persistent mild central vascular congestion and bibasilar atelectasis and low lung volumes. No significant change from previous. He has been afebrile, heart rate 93, blood pressure 133/83, pulse ox 97% on room air. multimedia programmer is sinus tachycardia. The left pleural chest tube has been removed today. Patient was started on colchi cine for pericardial rub. Limited echocardiogram has been ordered and patient be transferred to the cardiac stepdown unit. 07/10: Patient continues to do very well in the postop period. He has been ambulating well in the hallway. No chest pain, no shortness of breath, no l ightheadedness or dizziness. He is waiting for bed on the cardiac stepdown unit. Possible discharge tomorrow. Patient has been afebrile, heart rate 101, respiratory rate 28, blood pressure 128/77, pulse ox 95% on room air. Repeat blood work reveals WBC 7.8, hemoglobin 11.1, platelet count 211. Electrolytes are all normal, creatinine 0.73. Blood sugars are running between 104 and 119. Limited echocardiogram from yesterday revealed limited study for pericardial effusion. 07/11: Patient remains in the ICU waiting for a bed on the CSD unit. No new complaints. He denies having chest pain, shortness of breath. He is ambulating without lightheadedness or dizziness. He has been afebrile, heart rate 101, blood pressure 123/80, pulse ox 95% on room air. WBC 8.7, hemoglobin 10.9, platelet count 265. Electrolytes and renal function normal. Blood sugars are running between 115 and 125. He is scheduled for discharge home today. REVIEW OF SYSTEMS Constitutional: No fever, no chills, no night sweats. No weight change. No weakness, fatigue or lethargy. No daytime sleepiness. EENT: No headache. No blurred vision or double vision, no loss of vision. No dizziness. No nasal drainage or congestion. No epistaxis. No sore throat. Lungs: No shortness of breath, cough, no sputum production. No wheezing. Cardiovascular: No chest pain. no lower extremity edema. No palpitations. No paroxysmal nocturnal dyspnea. No orthopnea. No lightheadedness or dizziness. No syncopal episodes. Abdominal: No abdominal pain. No nausea, vomiting. No diarrhea. No constipation. No bloody or tarry stools. No loss of appetite. Genitourinary: No dysuria, increased frequency, urgency. No urinary retention. Musculoskeletal: No myalgias. No muscle weakness, no gait dysfunction, no frequent falls. No back pain. No neck pain. Integumentary: No wounds, no lesions. No rash or pruritus. No unusual bruising. No change in hair or nails. Neurologic: No aphasia. No facial droop. No change in mentation. No head injury. No headache. No paralysis. No paresthesia. Psychiatric: No depression. No anxiety. Endocrine: No abnormal blood [id number]. PHYSICAL EXAMINATION Gen: This is a 59-year-old male patient. He is resting and recliner and appears to comfortable and in no acute distress. HEENT: Head is atraumatic, normocephalic. Pupils equal, round. Sclerae is anicteric. NECK: Supple. No JVD. No lymphadenopathy. No thyromegaly. LUNGS: Clear to auscultation. No wheezes or rhonchi. No intercostal retractions. HEART: Regular rate and rhythm. No murmur. ABDOMEN: Soft. Bowel sounds are present. No masses. No tenderness. EXTREMITIES: No pedal edema. No calf tenderness. NEUROLOGICAL: Patient is awake, alert and oriented x3. Cranial nerves 2 through 12 are grossly intact. ASSESSMENT AND PLAN #1 postoperative day 5 coronary artery bypass grafting with HUTCHISON to LAD, SVG to the OM and SVG to the ramus with right leg endoscopic vein harvest and exclusion of the left atrial appendage. For significant coronary artery disease involving the LAD and intermediate vessel. Continue aspirin 325 mg, Lipitor 40 mg, Plavix 75 daily, metoprolol 50 mg 2 times a day. Colchicine started for pericardial rub. Echocardiogram limited pending. #2 hypertension continue metoprolol 50 twice a day # 3 hyperlipidemia continue Lipitor 40 mg daily #4 BPH continue tamsulosin 0.4 mg daily at bedtime. Encourage ambulation #5 Anemia expected outcome off surgery. Continue monitoring hemoglobin. Repeat CBC tomorrow #6 type 2 diabetes controlled with diet. Insulin sliding scale. A1c is 5.1 #7 CODE STATUS full code #8 DVT prophylaxis with heparin every 8 #9 GI prophylaxis with pantoprazole 40 mg daily DISCHARGE PLAN Home with [facility]. Impression and plan of care have been directed as dictated by the signing physician. Gracia Quezada nurse practitioner acting as scribe for signing physician. Objective - Vital Signs Vital signs: Vital Signs Temp 97.7 F 07/11/20 08:00 Pulse 110 H 07/11/20 08:42 Resp 18 07/11/20 08:42 BP 123/80 07/11/20 08:00 Pulse Ox 95 07/11/20 08:32 Intake & Output 07/10/20 07/11/20 07/11/20 18:59 06:59 18:59 Output Total 200 950 650 Balance -200 -950 -650 Weight 124.5 kg Output: Urine 200 950 650 Other: Voiding Method Urinal Urinal Urinal # Voids 0 ABP, PAP, CO, CI - Last Documented Arterial Blood Pressure 103/41 Pulmonary Artery Pressure 23/9 Cardiac Output 7.7 Cardiac Index 3 - Labs CBC & Chem 7: 07/11/20 04:24 07/11/20 04:24 Labs: Abnormal Lab Results - Last 24 Hours (Table) 07/10/20 07/10/20 07/10/20 Range/Units 11:52 16:50 22:17 RBC (4.30-5.90) m/uL Hgb (13.0-17.5) gm/dL Hct (39.0-53.0) % Glucose (74-99) mg/dL POC Glucose (mg/dL) 114 H 125 H 115 H (75-99) mg/dL 07/11/20 07/11/20 Range/Units 04:24 04:24 RBC 3.62 L (4.30-5.90) m/uL Hgb 10.9 L (13.0-17.5) gm/dL Hct 31.1 L (39.0-53.0) % Glucose 115 H (74-99) mg/dL POC Glucose (mg/dL) (75-99) mg/dL
== END 2020-07-11 11:25 | disposition home or self-care (01) | DRG 236 ==
LOC: 2ORMAIN 05:33 → 2SICU 14:00
PROVIDERS: ADMIT Surgery; ATTEND Surgery
PROC: 02L70CK Occlusion of Left Atrial Appendage with Extraluminal Device, Open Approach (ICD-10-PCS; principal; 2020-07-06 08:00)
PROC: 0WB80ZZ Excision of Chest Wall, Open Approach (ICD-10-PCS; principal; 2020-07-06 08:00)
PROC: 06B Lower Veins, Excision (ICD-10-PCS; principal; 2020-07-06 08:00)
PROC: B246ZZ4 Ultrasonography of Right and Left Heart, Transesophageal (ICD-10-PCS; principal; 2020-07-06 08:00)
PROC: 02100Z9 Bypass Coronary Artery, One Artery from Left Internal Mammary, Open Approach (ICD-10-PCS; principal; 2020-07-06 08:00)
PROC: 5A1221Z Performance of Cardiac Output, Continuous (ICD-10-PCS; principal; 2020-07-06 08:00)
PROC: 021109W Bypass Coronary Artery, Two Arteries from Aorta with Autologous Venous Tissue, Open Approach (ICD-10-PCS; principal; 2020-07-06 08:00)
DX: I25.10 Atherosclerotic heart disease of native coronary artery without angina pectoris (principal); D62 Acute posthemorrhagic anemia; J98.11 Atelectasis; D17.9 Benign lipomatous neoplasm, unspecified; E11.9 Type 2 diabetes mellitus without complications; E78.5 Hyperlipidemia, unspecified; I10 Essential (primary) hypertension; K59.00 Constipation, unspecified; M19.90 Unspecified osteoarthritis, unspecified site; N40.0 Benign prostatic hyperplasia without lower urinary tract symptoms; E78.00 Pure hypercholesterolemia, unspecified; Z82.49 Family history of ischemic heart disease and other diseases of the circulatory system; Z80.52 Family history of malignant neoplasm of bladder; Z80.8 Family history of malignant neoplasm of other organs or systems; Z79.02 Long term (current) use of antithrombotics/antiplatelets; Z79.82 Long term (current) use of aspirin; Z79.899 Other long term (current) drug therapy; Z83.3 Family history of diabetes mellitus; Z96.641 Presence of right artificial hip joint
CPT/HCPCS: 71045; 71046; 80048; 80053; 82330; 82805; 83735; 85025; 85027; 85384; 85520; 85610; 85730; 86850; 86891; 86900; 86901; 86920; 88304; 93308; 94002; 94640

== ENCOUNTER → 2022-02-11 | Outpatient (CLI) | payer OTHER ==
--- NOTE | 2022-02-13 10:15 | MR ---
EXAMINATION TYPE: MR Prostate wo/w con DATE OF EXAM: 02/11/2022 COMPARISON: CT abdomen and pelvis 2017. INDICATION: Elevated PSA results PSA: 7.03 ng/ml on January 13, 2022 increased from 4.08 on April 16, 2019 Recent Biopsy and Date: None Pathology Report (If Applicable): n/a TECHNIQUE: Examination was performed using a 3T MRI without an endorectal coil. Multiparametric imaging was perf ormed with T2 mutliplanar sequences, axial diffusion weighted imaging and dynamic contrast enhanced i maging, utilizing 12 mL intravenous Gadavist gadolinium contrast. FINDINGS: Enlarged prostate consistent with BPH. PROSTATE VOLUME: 5.1 cm SI x 4.0 cm AP x 5.7 cm LR Vol= 60.9 cc PSA DENSITY: 0.12 ng/ml/cc Some areas of slight diminished signal on ADC mapping in the peripheral zone for reference left later al aspect mid zone towards the apex are seen. No increased signal on diffusion-weighted imaging. Cent ral zone shows overall heterogeneity without suspicious T2 hypointense lesion. No restricted diffusio n is evident. Prostate capsule is maintained. Seminal vesicles appear within normal limits. No pelvic adenopathy is seen. There are small fat-containing left inguinal hernia. There is artifact from metallic hardware at leve l of right hip. No pelvic ascites. No suspicious small or large bowel dilatation. Some sigmoid coloni c diverticula are seen. IMPRESSION: Enlarged prostate consistent with BPH. A focus of clinically significant cancer is not identified. Highest Assessment Category: 2 MRI Stage: T0 N0 M0 based on review of pelvic images. False negative rates for MRI range from 5-20% depending on risk profile. Assessment Categories: 1 ? Very low (clinically significant cancer is highly unlikely to be present) 2 ? Low (clinically significant cancer is unlikely to be present) 3 ? Intermediate (the presence of clinically significant cancer is equivocal) 4 ? High (clinically significant cancer is likely to be present) 5 ? Very high (clinically significant cancer is highly likely to be present)
== END | disposition home or self-care (01) ==
LOC: RADMRIMAIN 07:26
PROVIDERS: ATTEND Urology
DX: N40.0 Benign prostatic hyperplasia without lower urinary tract symptoms (principal); R97.20 Elevated prostate specific antigen [PSA]
CPT/HCPCS: 72197; A9585

== ENCOUNTER → 2022-05-09 | Outpatient (CLI) | payer OTHER ==
--- NOTE | 2022-05-09 14:38 | P.SLEEP ---
History of Present Illness H&P Date: 05/09/22 Chief Complaint: Snoring This is a 61-year-old male patient was referred for sleep apnea evaluation. The patient is known to have coronary artery disease and the patient has undergone previous bypass surgery. The patient is currently retired. 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 Currently is in full long term. He has history of snoring. No reported witnessed apneas, no insomnia, no choking or gasping for air in the middle of the night, no restlessness in his lower extremities, no grinding of the teeth, no sleepwalking, no palpitations or heartburn or anxiety or panic attacks in the middle of the night. No sleepwalking. No sleep talking. He wakes up refreshed and he doesn't have any issues with attention or memory or concentration. He describes his sleep quality to be good. He goes to bed at around midnight, wakes up 7 AM in the morning. He can fall asleep within a few minutes. His sleep is not). His weight has remained stable over the past 10 years. He sleeps on his side. No personal or family history of obstructive sleep apnea. Review of Systems Constitutional: Reports as per HPI Eyes: denies as per HPI, denies blurred vision, denies bulging eye, denies decreased vision, denies diplopia, denies discharge, denies dry eye, denies irritation, denies itching, denies pain, denies photophobia, denies loss of peripheral vision, denies loss of vision, denies tunnel vision/blind spots Ears: deny: decreased hearing, ear discharge, earache, tinnitus Ears, nose, mouth and throat: Reports as per HPI Cardiovascular: Reports as per HPI Respiratory: Reports snoring Gastrointestinal: Reports as per HPI Genitourinary: Reports as per HPI Musculoskeletal: Reports as per HPI Musculoskeletal: absent: ankle pain, ankle stiffness, ankle swelling Integumentary: Reports as per HPI Neurological: Reports as per HPI Psychiatric: Reports as per HPI Endocrine: Reports as per HPI Hematologic/Lymphatic: Reports as per HPI Allergic/Immunologic: Reports as per HPI Past Medical History Past Medical History: Coronary Artery Disease (CAD), Hyperlipidemia, Osteoarthritis (OA), Prostate Disorder Additional Past Medical History / Comment(s): Hypercholesterolemia History of Any Multi-Drug Resistant Organisms: None Reported Past Surgical History: Coronary Bypass/CABG, Heart Catheterization, Joint Replacement Additional Past Surgical History / Comment(s): right hip replacement Past Anesthesia/Blood Transfusion Reactions: No Reported Reaction Smoking Status: Never smoker - Past Family History Mother Family Medical History: Cancer, Hypertension Additional Family Medical History / Comment(s): bone Father Family Medical History: Cancer, Congestive Heart Failure (CHF) Additional Family Medical History / Comment(s): bladder and skin Brother(s) Family Medical History: Cancer, Coronary Artery Disease (CAD) Additional Family Medical History / Comment(s): skin Medications and Allergies Home Medications Medication Instructions Recorded Confirmed Type Tamsulosin [Flomax] 0.4 mg PO HS 06/30/20 07/06/20 History Ubidecarenone [Co Q-10] 100 mg PO HS 06/30/20 07/06/20 History Acetaminophen Tab [Tylenol] 1,000 mg PO Q6HR PRN tab 07/11/20 Rx Aspirin 325 mg PO DAILY #30 tab 07/11/20 Rx Atorvastatin [Lipitor] 40 mg PO DAILY #30 tab 07/11/20 Rx Clopidogrel [Plavix] 75 mg PO DAILY #30 tab 07/11/20 Rx Metoprolol Tartrate [Lopressor] 50 mg PO BID #60 tab 07/11/20 Rx Pantoprazole [Protonix] 40 mg PO AC-BRKFST #30 tablet.dr 07/11/20 Rx Sennosides-Docusate Sodium 2 each PO HS PRN tab 07/11/20 Rx [Senokot-S] polyethylene glycoL 3350 [Miralax] 17 gm PO DAILY powd.pack 07/11/20 Rx Allergies Allergy/AdvReac Type Severity Reaction Status Date / Time Penicillins Allergy Unknown Verified 07/06/20 05:54 Childhood Physical Exam BP is 128/79 with a pulse of 77 and a respiration of 20 and a temperature of 97.7. Oxygen saturations 97%. Height is 6 feet and 3 inches, weight is 277 pounds, the size of the neck is 18 inches, Perry score is at 3 and a body mass index is 34.6 The patient appeared well nourished and normally developed. Vital signs as doc umented. Head exam is unremarkable. No scleral icterus or corneal arcus noted. Neck is without jugular venous distension, thyromegaly, or carotid bruits. Carotid upstrokes are brisk bilaterally. Lungs are clear to auscultation and percussion. The patient is a thoracotomy scar over the anterior chest area and the wound is essentially well healed. Cardiac exam reveals the PMI to be normally sized and situated. Rhythm is regular. First and second heart sounds normal. No murmurs, rubs or gallops. Abdominal exam reveals normal bowel sounds, no masses, no organomegaly and no aortic enlargement. Extremities are nonedematous and both femoral and pedal pulses are normal.Examination of the skin revealed no evidence of significant rashes, suspicious appearing nevi or other concerning lesions.Neurologically, the patient is awake and alert and the patient does not have any focal neurological deficit. Cranial nerves are essentially intact. Assessment and Plan Plan: Loud snoring with a low clinical suspicion for obstructive sleep apnea. No sleep fragmentation. No excessive hypersomnia or sleepiness. Perry score is 3. Rule out primary snoring. Coronary artery disease with previous bypass surgery Hypertension Hyperlipidemia BPH Plan Encourage weight loss Maintain regular sleep schedule and regular sleep hygiene measures Cardiovascular condition is stable Low clinical suspicion for obstructive sleep apnea. We'll do a home study and get back to the patient with the results and make further recommendations accordingly. Sleep Note - Sleep Note Sleep Note: Temperature: Pulse Rate: Respiratory Rate: Blood Pressure: SpO2: Height: Weight: BMI: Neck Circumference:
== END ==
LOC: SLEEP 13:54
PROVIDERS: ATTEND Internal Medicine Critical Care Medicine
DX: R06.83 Snoring (principal); I25.10 Atherosclerotic heart disease of native coronary artery without angina pectoris; I10 Essential (primary) hypertension; E78.5 Hyperlipidemia, unspecified; N40.0 Benign prostatic hyperplasia without lower urinary tract symptoms; Z79.82 Long term (current) use of aspirin; Z79.899 Other long term (current) drug therapy; M19.90 Unspecified osteoarthritis, unspecified site; N42.9 Disorder of prostate, unspecified; E78.3 Hyperchylomicronemia; Z88.0 Allergy status to penicillin
CPT/HCPCS: 99211

== ENCOUNTER → 2022-08-01 | Outpatient (CLI) | payer OTHER | END | disposition home or self-care (01) | LOC: LABWHC1 15:36 | PROVIDERS: ATTEND Internal Medicine Geriatric Medicine | DX: R97.20 Elevated prostate specific antigen [PSA] (principal) | CPT/HCPCS: 36415; 84153 ==

== ENCOUNTER 2022-08-02 20:41 | Emergency (ER) | payer OTHER ==
[2022-08-02 20:59] VITALS: RESP 18; TEMP 97.7
[2022-08-02] MEDS ORDERED: SODIUM CHLORIDE 0.9% 500 ML 500 ML IV STA (21:11)
[2022-08-02 21:52] VITALS: BP 119/96
[2022-08-02 22:09] LABS: Basophils % (A) 0 %; Eosinophils # (A) 0.3 k/uL (0-0.7); Eosinophils % (A) 3 %; HCT 48.7 % (39.0-53.0); HGB 16.7 gm/dL (13.0-17.5); Lymphocytes # (A) 1.5 k/uL (1.0-4.8); Lymphocytes % (A) 14 %; MCH 29.7 pg (25.0-35.0); MCHC 34.3 g/dL (31.0-37.0); MCV 86.8 fL (80.0-100.0); Monocytes # (A) 0.9 k/uL (0-1.0); Monocytes % (A) 8 %; Neutrophils % (A) 74 %; Platelet Count 226 k/uL (150-450); RBC 5.62 m/uL (4.30-5.90); RDW 13.8 % (11.5-15.5); WBC 10.8 k/uL (3.8-10.6)
[2022-08-02 22:26] LABS: ALT 29 U/L (4-49); AST 18 U/L (17-59); African American GFR (CKD) >90 (>60 ml/min/1.73 sqM); Albumin 4.2 g/dL (3.5-5.0); Alkaline Phosphatase 111 U/L (38-126); Anion Gap 11 mmol/L; Blood Urea Nitrogen 27 mg/dL (9-20); Calcium 8.7 mg/dL (8.4-10.2); Carbon Dioxide 23 mmol/L (22-30); Chloride 103 mmol/L (98-107); Glucose 142 mg/dL (74-99); Non-African American GFR(CKD) >90 (>60 ml/min/1.73 sqM); Phosphorus 4.6 mg/dL (2.5-4.5); Sodium 137 mmol/L (137-145); Total Bilirubin 0.8 mg/dL (0.2-1.3); Total Protein 6.5 g/dL (6.3-8.2)
[2022-08-02 22:28] LABS: Partial Thromboplastin Time 21.7 sec (22.0-30.0); Prothrombin Time 10.7 sec (9.0-12.0)
--- NOTE | 2022-08-02 22:28 | ED ---
Dizziness HPI - General Chief Complaint: Dizziness Stated Complaint: Dizziness,nausea Time Seen by Provider: 08/02/22 21:06 Source: patient, RN notes reviewed, old records reviewed Mode of arrival: ambulatory Limitations: no limitations - History of Present Illness Initial Comments: This is a 61-year-old male to the emergency department for evaluation persistent symptoms. Room spinning with position changes. No headaches. No chest pain or shortness of breath no other complaints. Patient does have history of heart catheterization and significant heart history of cholesterol and coronary artery disease. MD Complaint: dizziness, lightheadedness, difficulty walking -: hour(s) Timing: gradual onset, unsure, intermittent, waxing/waning Description: lightheadedness, off-balance, difficulty walking History of Same: No History of Trauma: Yes Severity: mild Improves With: remaining still Worsens With: movement Associated Symptoms: denies other symptoms - Related Data Home Medications Medication Instructions Recorded Confirmed Tamsulosin [Flomax] 0.4 mg PO HS 06/30/20 07/06/20 Ubidecarenone [Co Q-10] 100 mg PO HS 06/30/20 07/06/20 Previous Rx's Medication Instructions Recorded Acetaminophen Tab [Tylenol] 1,000 mg PO Q6HR PRN tab 07/11/20 Aspirin 325 mg PO DAILY #30 tab 07/11/20 Atorvastatin [Lipitor] 40 mg PO DAILY #30 tab 07/11/20 Clopidogrel [Plavix] 75 mg PO DAILY #30 tab 07/11/20 Metoprolol Tartrate [Lopressor] 50 mg PO BID #60 tab 07/11/20 Pantoprazole [Protonix] 40 mg PO AC-BRKFST #30 tablet. 07/11/20 Sennosides-Docusate Sodium 2 each PO HS PRN tab 07/11/20 [Senokot-S] polyethylene glycoL 3350 [Miralax] 17 gm PO DAILY powd.pack 07/11/20 Meclizine [Antivert] 25 mg PO TID #15 tab 08/03/22 Allergies Allergy/AdvReac Type Severity Reaction Status Date / Time Penicillins Allergy Unknown Verified 08/02/22 20:59 Childhood Review of Systems ROS Statement: Those systems with pertinent positive or pertinent negative responses have been documented in the HPI. ROS Other: All systems not noted in ROS Statement are negative. Past Medical History Past Medical History: Coronary Artery Disease (CAD), Hyperlipidemia, Osteoarthritis (OA), Prostate Disorder Additional Past Medical History / Comment(s): Hypercholesterolemia History of Any Multi-Drug Resistant Organisms: None Reported Past Surgical History: Coronary Bypass/CABG, Heart Catheterization, Joint Repla cement Additional Past Surgical History / Comment(s): right hip replacement Past Anesthesia/Blood Transfusion Reactions: No Reported Reaction Past Psychological History: No Psychological Hx Reported Smoking Status: Never smoker Past Alcohol Use History: None Reported Past Drug Use History: None Reported - Past Family History Mother Family Medical History: Cancer, Hypertension Additional Family Medical History / Comment(s): bone Father Family Medical History: Cancer, Congestive Heart Failure (CHF) Additional Family Medical History / Comment(s): bladder and skin Brother(s) Family Medical History: Cancer, Coronary Artery Disease (CAD) Additional Family Medical History / Comment(s): skin General Exam Limitations: no limitations General appearance: alert, in no apparent distress Head exam: Present: atraumatic, normocephalic, normal inspection Eye exam: Present: normal appearance, PERRL, EOMI, nystagmus. Absent: scleral icterus, conjunctival injection, periorbital swelling ENT exam: Present: normal exam, mucous membranes moist Neck exam: Present: normal inspection. Absent: tenderness, meningismus, lymphadenopathy Respiratory exam: Present: normal lung sounds bilaterally. Absent: respiratory distress, wheezes, rales, rhonchi, stridor Cardiovascular Exam: Present: regular rate, normal rhythm, normal heart sounds. Absent: systolic murmur, diastolic murmur, rubs, gallop, clicks GI/Abdominal exam: Present: soft, normal bowel sounds. Absent: distended, tenderness, guarding, rebound, rigid Extremities exam: Present: normal inspection, full ROM, normal capillary refill. Absent: tenderness, pedal edema, joint swelling, calf tenderness Back exam: Present: normal inspection Neurological exam: Present: alert, oriented X3, CN II-XII intact Psychiatric exam: Present: normal affect, normal mood Skin exam: Present: warm, dry, intact, normal color. Absent: rash Course Vital Signs 08/02/22 08/02/22 08/03/22 20:53 21:51 00:44 Temperature 97.7 F Pulse Rate 81 76 80 Respiratory 18 18 18 Rate Blood Pressure 131/78 119/96 O2 Sat by Pulse 98 96 98 Oximetry - Reevaluation(s) Reevaluation #1: Medical records reviewed Reevaluation #2: Patient symptoms are improved Reevaluation #3: Patient informed results questions answered Reevaluation #4: 08/02/22 23:22 Was pt. sent in by a medical professional or institution? @ -no Did you speak to anyone other than the patient for history? @ -no Did you review nursing and triage notes? @ -agree Were old charts reviewed? @ -yes Differential Diagnosis? @ -prior EKG interpreted by me (3pts min.)? @ -yes X-rays interpreted by me (1pt min.)? @ -no CT interpreted by me (1pt min.)? @ -yes U/S interpreted by me (1pt. min.)? @ -no What testing was considered but not performed? (CT, X-rays, U/S, labs)? Why? @ -no What meds were considered but not given? Why? @ -no Did you discuss the management of the patient with other professionals? @ -no Did you reconcile home meds? @ -no Was smoking cessation discussed for >3mins.? @ -no Was critical care preformed (if so, how long)? @ -no Were there social determinants of health that impacted care today? How? (Homelessness, low income, unemployed, alcoholism, drug addiction, tra nsportation, low edu. Level, literacy, decrease access to med. care, longterm, rehab)? @ -no Was there de-escalation of care discussed even if they declined? (Discuss DNR or withdrawal of care, Hospice)? @ -no What co-morbidities impacted this encounter? (DM, HTN, Smoking, COPD, CAD, Cancer, CVA, Hep., AIDS, mental health diagnosis, sleep apnea, morbid obesity)? @ -none Was patient admitted / discharged? @ -61-year-old male to the emergency department for evaluation found to have symptoms of vertigo. Patient is feeling much improved. He is not ataxic able to ambulate can be discharged Discharge Undiagnosed new problem with uncertain prognosis? @ -no Drug Therapy requiring intensive monitoring for toxicity (Heparin, Nitro, Insulin, Cardizem)? @ -no Were any procedures done? @ -no Diagnosis/symptom? @ -Vertigo Acute, or Chronic, or Acute on Chronic? @ -acute Uncomplicated (without systemic symptoms) or Complicated (systemic symptoms)? @ -complicated Side effects of treatment? @ -no Exacerbation, Progression, or Severe Exacerbation] @ -no Poses a threat to life or bodily function? @ -He has significant acute CVA Reevaluation #5: Differential Dizziness: Benign paroxysmal positional Vertigo, Menieres disease, otitis media, acoustic neuroma, vertebrobasilar insufficiency, cerebellar stroke, encephalitis, hypovolemic, arrhythmia, coronary artery syndrome, anemia, this is not meant to be an all-inclusive list EKG Findings - EKG Comments: EKG Findings:: EKG is sinus 80 [place] 159 QRS 90 QTC 410 Medical Decision Making - Medical Decision Making 61-year-old male to the emergency department for evaluation found to have symptoms of vertigo. Patient is feeling much improved. He is not ataxic able to ambulate can be discharged - Lab Data Result diagrams: 08/02/22 21:30 08/02/22 21:30 Lab Results 08/02/22 08/02/22 08/02/22 Range/Units 21:30 21:30 21:30 WBC 10.8 H (3.8-10.6) k/uL RBC 5.62 (4.30-5.90) m/uL Hgb 16.7 (13.0-17.5) gm/dL Hct 48.7 (39.0-53.0) % MCV 86.8 (80.0-100.0) fL MCH 29.7 (25.0-35.0) pg MCHC 34.3 (31.0-37.0) g/dL RDW 13.8 (11.5-15.5) % Plt Count 226 (150-450) k/uL MPV 8.0 Neutrophils % 74 % Lymphocytes % 14 % Monocytes % 8 % Eosinophils % 3 % Basophils % 0 % Neutrophils # 8.0 H (1.3-7.7) k/uL Lymphocytes # 1.5 (1.0-4.8) k/uL Monocytes # 0.9 (0-1.0) k/uL Eosinophils # 0.3 (0-0.7) k/uL Basophils # 0.0 (0-0.2) k/uL PT 10.7 (9.0-12.0) sec INR 1.0 (<1.2) APTT 21.7 L (22.0-30.0) sec D-Dimer 0.59 (<0.60) mg/L FEU Sodium 137 (137-145) mmol/L Potassium 4.0 (3.5-5.1) mmol/L Chloride 103 (98-107) mmol/L Carbon Dioxide 23 (22-30) mmol/L Anion Gap 11 mmol/L BUN 27 H (9-20) mg/dL Creatinine 0.71 (0.66-1.25) mg/dL Est GFR (CKD-EPI)AfAm >90 (>60 ml/min/1.73 sqM) Est GFR (CKD-EPI)NonAf >90 (>60 ml/min/1.73 sqM) Glucose 142 H (74-99) mg/dL Plasma Lactic Acid [place] (0.7-2.0) mmol/L Calcium 8.7 (8.4-10.2) mg/dL Phosphorus 4.6 H (2.5-4.5) mg/dL Magnesium 2.0 (1.6-2.3) mg/dL Total Bilirubin 0.8 (0.2-1.3) mg/dL AST 18 (17-59) U/L ALT 29 (4-49) U/L Alkaline Phosphatase 111 (38-126) U/L Troponin I (0.000-0.034) ng/mL NT-Pro-B Natriuret Pep pg/mL Total Protein 6.5 (6.3-8.2) g/dL Albumin 4.2 (3.5-5.0) g/dL 08/02/22 08/02/22 08/02/22 Range/Units 21:30 21:30 21:30 WBC (3.8-10.6) k/uL RBC (4.30-5.90) m/uL Hgb (13.0-17.5) gm/dL Hct (39.0-53.0) % MCV (80.0-100.0) fL MCH (25.0-35.0) pg MCHC (31.0-37.0) g/dL RDW (11.5-15.5) % Plt Count (150-450) k/uL MPV Neutrophils % % Lymphocytes % % Monocytes % % Eosinophils % % Basophils % % Neutrophils # (1.3-7.7) k/uL Lymphocytes # (1.0-4.8) k/uL Monocytes # (0-1.0) k/uL Eosinophils # (0-0.7) k/uL Basophils # (0-0.2) k/uL PT (9.0-12.0) sec INR (<1.2) APTT (22.0-30.0) sec D-Dimer (<0.60) mg/L FEU Sodium (137-145) mmol/L Potassium (3.5-5.1) mmol/L Chloride (98-107) mmol/L Carbon Dioxide (22-30) mmol/L Anion Gap mmol/L BUN (9-20) mg/dL Creatinine (0.66-1.25) mg/dL Est GFR (CKD-EPI)AfAm (>60 ml/min/1.73 sqM) Est GFR (CKD-EPI)NonAf (>60 ml/min/1.73 sqM) Glucose (74-99) mg/dL Plasma Lactic Acid [place] 1.4 (0.7-2.0) mmol/L Calcium (8.4-10.2) mg/dL Phosphorus (2.5-4.5) mg/dL Magnesium (1.6-2.3) mg/dL Total Bilirubin (0.2-1.3) mg/dL AST (17-59) U/L ALT (4-49) U/L Alkaline Phosphatase (38-126) U/L Troponin I <0.012 (0.000-0.034) ng/mL NT-Pro-B Natriuret Pep 109 pg/mL Total Protein (6.3-8.2) g/dL Albumin (3.5-5.0) g/dL - Radiology Data Radiology results: report reviewed (CT brain CT had neck negative for acute disease), image reviewed Disposition Clinical Impression: Benign paroxysmal positional vertigo Disposition: HOME SELF-CARE Condition: Good Instructions (If sedation given, give patient instructions): Vertigo (ED) Prescriptions: Meclizine [Antivert] 25 mg PO TID #15 tab Is patient prescribed a controlled substance at d/c from ED?: No Referrals: Sabino Apodaca MD [Primary Care Provider] - 1-2 days Time of Disposition: 23:40
--- NOTE | 2022-08-02 23:31 | CT ---
EXAMINATION TYPE: CT brain wo con DATE OF EXAM: 08/02/2022 COMPARISON: none HISTORY: VERTIGO CT DLP: 1991.[address] of the brain was performed. The ventricles, basal cisterns and sulci overlying the cerebral convexities demonstrate mild enlargem ent. There is no evidence for intracranial hemorrhage or sulcal effacement. There is decreased attenuation about the periventricular white matter and deep white matter of both c erebral hemispheres, compatible with chronic small vessel ischemia. Differential diagnosis does inclu de demyelination. No mass effects are seen.No midline shift. Osseous calvarium is intact. If symptoms persist consider MRI. IMPRESSION: 1. Age related atrophic and chronic small vessel ischemic change without acute intracranial process s een at this time.
--- NOTE | 2022-08-02 23:42 | CT ---
EXAMINATION TYPE: CT angio head neck DATE OF EXAM: 08/02/2022 COMPARISON: None HISTORY: VERTIGO CT DLP: 1991.5 mGycm CONTRAST: Performed with IV Contrast, patient injected with 65 mL of Isovue 370. Combination Contrast CTA cervical carotids and [place] CTA cervical carotids with 3-D recons truction Contrast CTA of the cervical carotids was performed 3-D reconstruction imaging obtained at a separate workstation. Right carotid system: Mild plaque is seen of the right common carotid artery. There is mild plaque a lso noted at the carotid bulb and proximal ICA. No significant diameter reduction. ECA is patent. Right vertebral artery appears unremarkable. Left carotid system: Mild plaque is seen of the left common carotid artery. There is mild plaque als o noted at the carotid bulb and proximal ICA. No significant diameter reduction. ECA is patent. Lef t vertebral artery appears unremarkable. Complex mass left thyroid lobe measuring 3.0 x 2.8 cm. Additional nodule suspected as well. Ultrasoun d correlation is recommended which can be performed as an outpatient. IMPRESSION: 1. No significant diameter reduction to account for the patient's symptoms. 2.Complex mass left thyroid lobe measuring 3.0 x 2.8 cm. Additional nodule suspected as well. Ultraso und correlation is recommended which can be performed as an outpatient. CTA [place] with 3-D reconstruction Contrast CTA of the [place] was performed 3-D reconstruction imaging obtained at a separate workstation. Vertebrobasilar system as well as intracranial portions of the internal carotid arteries and their ma [place] tributaries are patent. I do not see evidence for sizable aneurysm or vascular malformation. Pl ease note MRI provides greater sensitivity and specificity. Visualized brain appears grossly unremar kable. IMPRESSION: 1. No CT evidence to suggest large vessel occlusion at this time. NASCET criteria was used in interpretation of this exam?
[2022-08-03] MEDS ORDERED: MECLIZINE 12.5 MG TAB PO STA (00:18)
[2022-08-03 00:45] VITALS: PULSE 80
== END 2022-08-03 00:56 | disposition home or self-care (01) ==
LOC: EC 20:41
DX: H81.10 Benign paroxysmal vertigo, unspecified ear (principal); I25.10 Atherosclerotic heart disease of native coronary artery without angina pectoris; Z88.0 Allergy status to penicillin; Z95.1 Presence of aortocoronary bypass graft
CPT/HCPCS: 36415; 93005; 85379; 83880; 80053; 83605; 83735; 84100; 84484; 85025; 85610; 85730; 70496; 70450; 70498; 99285; 96360; 96361; Q9967

== ENCOUNTER → 2022-09-12 | Outpatient (CLI) | payer OTHER ==
--- NOTE | 2022-09-12 13:32 | P.PN ---
Progress Note - Text Progress Note Date: 09/12/22 This is a 62-year-old male patient was coming to see me for a follow-up regarding his CPAP treatment. He is coming in for a compliancy check. The patient was diagnosed having moderate to severe ALF with an AHI of 24 and the patient was offered an APAP machine pressures of 5/15 cm of water is also using an Airfit F20 fullface mask. The patient is doing extremely well. Snoring is completely subsided and the patient has no snoring. No hypersomnia or sleepiness during the day. His fatigue and tiredness is recovered and the patient sleep quality is improved. I checked the machine and the patient has a ResMed 11 generation. Based on compliancy data that has been collected between 08/05/2022 and 09/03/2022, the patient has been averaging about 6 hours and 24 minutes and the patient has utilizes machine more than 4 hours 90% of the time. Based on the recordings, the patient's P 95th percentile pressure was 10.8. His median leak is in order of 2 L/m and his AHI is down to 2.5 indicating successful treatment. No central apneas have been noted. The patient has no other complaints otherwise for now. He is committed to long-term CPAP therapy Vitals The patient's blood pressure is 117/73, pulse is 88, respirations 16, oxygen saturation 96% on room air and weight is 269 pounds with a temperature of 97.7. His current Vici score is at 2 The patient appeared well nourished and normally developed. Vital signs as documented. Head exam is unremarkable. No scleral icterus or corneal arcus noted. Neck is without jugular venous distension, thyromegaly, or carotid bruits. Carotid upstrokes are brisk bilaterally. Lungs are clear to auscultation and percussion. Cardiac exam reveals the PMI to be normally sized and situated. Rhythm is regular. First and second heart sounds normal. No murmurs, rubs or gallops. Abdominal exam reveals normal bowel sounds, no masses, no organomegaly and no aortic enlargement. Extremities are nonedematous and both femoral and pedal pulses are normal. nExamination of the skin revealed no evidence of significant rashes, suspicious appearing nevi or other concerning lesions.Neurologically, the patient is awake and alert and the patient does not have any focal neurological deficit. Cranial nerves are essentially intact. Assessment Obstructive sleep apnea, moderate in severity with an AHI of 24, currently on APAP pressures of 5/15 cm of water with excellent clinical response and compliancy. Treatment has been successful for now the patient has no Kenneth. issues Mild nocturnal oxygen desaturation, recovered well on CPAP therapy Loud snoring, recovered Coronary artery disease with previous bypass surgery Chronic hypersomnia, recovered to CPAP therapy Plan Continue CPAP therapy at the same level of pressures and no adjustments were done today EPR 3 was activated Encourage weight loss Optimize sleep hygiene measures Patient is benefiting from CPAP therapy. The patient is compliant. The patient meets insurance standards for compliancy. We'll continue to follow. No other issues for now. Treatment is successful and the patient is committed to long- term CPAP therapy.
== END ==
LOC: SLEEP 13:04
PROVIDERS: ATTEND Internal Medicine Critical Care Medicine
DX: G47.33 Obstructive sleep apnea (adult) (pediatric) (principal); I25.10 Atherosclerotic heart disease of native coronary artery without angina pectoris; Z99.89 Dependence on other enabling machines and devices; Z95.1 Presence of aortocoronary bypass graft; Z88.0 Allergy status to penicillin
CPT/HCPCS: 99212

== ENCOUNTER → 2023-02-12 | Outpatient (CLI) | payer OTHER | END | disposition home or self-care (01) | LOC: LABWHC1 08:45 | PROVIDERS: ATTEND Urology | DX: R97.20 Elevated prostate specific antigen [PSA] (principal) | CPT/HCPCS: 36415; 84153 ==

== ENCOUNTER → 2023-08-08 | Day surgery (SDC) | payer OTHER ==
[2023-08-07 08:31] VITALS: BMI 30.3
[~2023-08-08] MED LIST changes: -ALPRAZolam 0.25 MG TAB PO PRN; -ALPRAZolam 0.5 MG TAB PO PRN; -ASPIRIN 325 MG TAB PO ONE; -ATORVASTATIN 80 MG TAB PO ONE; +LACTATED RINGERS 1,000 ML IV SCH; -NITROGLYCERIN SL TABS 0.4 MG TAB SUBLINGUAL PRN; +PROPOFOL 10 MG/ML 20 ML VIAL IV ONE; -SODIUM CHLORIDE 0.9% 1,000 ML in EMPTY BAG 1 BAG IV ONE
[2023-08-08] MEDS: LACTATED RINGERS 1,000 ML IV ONE (10:00)
[2023-08-08 10:13] VITALS: TEMP 97.6
--- NOTE | 2023-08-08 10:49 | P.PCN ---
Date of Procedure: 08/08/23 Procedure(s) Performed: BRIEF HISTORY: Patient is a 62-year-old pleasant white male scheduled for an elective colonoscopy as a part of evaluation of recent episode of acute sigmoid diverticulitis 3 months ago PROCEDURE PERFORMED: Colonoscopy with snare polypectomy. PREOPERATIVE DIAGNOSIS: Recent episode of acute sigmoid diverticulitis. IV sedation per Anesthesia. PROCEDURE: After informed consent was obtained, the patient, was brought into the endoscopy unit. IV sedation was administered by Anesthesia under continuous monitoring. Digital rectal examination was normal. Initially the Olympus CF-160 flexible video colonoscope was then inserted in the rectum, gradually advanced into the cecum without any difficulty. Careful examination was performed as the scope was gradually being withdrawn. Ileocecal valve and the appendiceal orifice were visualized and appeared normal. Prep was excellent. Mucosa of the cecum, ascending colon, transverse colon appeared normal. Descending colon there was a 6 mm polyp that was removed by cold snare polypectomy. Rest, descending colon, sigmoid colon, and rectum appeared normal moderate sigmoid diverticulosis. Retroflexion was performed in the rectum and grade 2 internal hemorrhoids were seen. The patient tolerated the procedure well. IMPRESSION: 6 mm descending colon polyp status post snare polypectomy Moderate sigmoid diverticulosis Grade 2 internal hemorrhoids RECOMMENDATIONS: Findings of this examination were discussed with the patient as well as his family. He was advised to follow-up with the biopsy results. If the biopsy reveals adenoma he can have repeat colonoscopy in 5 years. In the meantime advised to be on high-fiber diet take fiber supplements on a regular basis..
[2023-08-08 10:54] VITALS: RESP 16
[2023-08-08 11:35] VITALS: BP 107/68; PULSE 73
== END ==
LOC: ORWHC2ENDO 09:39
PROVIDERS: ATTEND Internal Medicine Gastroenterology
DX: D12.4 Benign neoplasm of descending colon (principal); K57.30 Diverticulosis of large intestine without perforation or abscess without bleeding; K64.1 Second degree hemorrhoids
CPT/HCPCS: 88305; 45385; J2704

== ENCOUNTER → 2023-08-21 | Outpatient (CLI) | payer OTHER | END | disposition home or self-care (01) | LOC: LABWHC1 08:30 | PROVIDERS: ATTEND Urology | DX: R97.20 Elevated prostate specific antigen [PSA] (principal) | CPT/HCPCS: 36415; 84153 ==

== ENCOUNTER → 2024-03-03 | Outpatient (CLI) | payer MEDICARE | END | disposition home or self-care (01) | LOC: LABWHC1 07:37 | PROVIDERS: ATTEND Urology | DX: C61 Malignant neoplasm of prostate (principal) | CPT/HCPCS: 36415; 84153 ==

== ENCOUNTER → 2024-06-16 | Outpatient (CLI) | payer MEDICARE ==
[2024-06-16 15:27] LABS: BUN/Creat Ratio 17.88 Ratio (12.00-20.00); Blood Urea Nitrogen 14.3 mg/dL (9.0-27.0); Calcium 9.2 mg/dL (8.7-10.3); Carbon Dioxide 25.3 mmol/L (21.6-31.8); Chloride 105 mmol/L (96-109); Glucose 113 mg/dL (70-110); Potassium 4.5 mmol/L (3.5-5.5); Sodium 141 mmol/L (135-145)
[2024-06-16 15:30] LABS: Basophils # (A) 0.03 X 10*3/uL (0.00-0.10); Basophils % (A) 0.6 %; Eosinophils # (A) 0.18 X 10*3/uL (0.04-0.35); Eosinophils % (A) 3.5 %; HGB 15.1 g/dL (13.0-17.0); Lymphocytes # (A) 1.02 X 10*3/uL (0.90-5.00); Lymphocytes % (A) 19.6 %; MCH 29.1 pg (27.0-32.0); MCHC 33.6 g/dL (32.0-37.0); MCV 86.7 FL (80.0-97.0); Mean Platelet Volume 9.6 FL (9.5-12.2); Monocytes # (A) 0.59 X 10*3/uL (0.20-1.00); Monocytes % (A) 11.3 %; NRBC Per 100 WBC 0 X 10*3/uL (0.00-0.01); Neutrophils # (A) 3.36 X 10*3/uL (1.80-7.70); Neutrophils % (A) 64.6 %; Platelet Count 234 X 10*3/uL (140-440); RBC 5.19 X 10*6/uL (4.40-5.60)
== END | disposition home or self-care (01) ==
LOC: LABPAT 10:16
PROVIDERS: ATTEND Urology
DX: Z01.812 Encounter for preprocedural laboratory examination (principal); C61 Malignant neoplasm of prostate
CPT/HCPCS: 80048; 85025

== ENCOUNTER → 2024-06-16 | Outpatient (CLI) | payer MEDICARE ==
[2024-06-16 15:35] LABS: Blood Urea Nitrogen 13.8 mg/dL (9.0-27.0)
[2024-06-16 15:36] LABS: ALT 19 U/L (10-49); AST 26 U/L (14-35); Albumin 4.1 g/dL (3.8-4.9); Albumin/Globulin Ratio 1.95 Ratio (1.60-3.17); Alkaline Phosphatase 151 U/L (41-126); Bilirubin, Conjugated 0.25 mg/dL (0.20-0.40); Bilirubin,Unconjugated 0.45 mg/dL (0.20-1.00); Globulin 2.1 g/dL (1.6-3.3); Prostate Specific Antigen 8.25 ng/mL (0.000-4.500); Total Bilirubin 0.7 mg/dL (0.3-1.2); Total Protein 6.2 g/dL (6.2-8.2)
== END | disposition home or self-care (01) ==
LOC: LABWHC1 10:11
PROVIDERS: ATTEND Radiology Radiation Oncology
DX: E78.2 Mixed hyperlipidemia (principal); E03.2 Hypothyroidism due to medicaments and other exogenous substances; C61 Malignant neoplasm of prostate; D63.0 Anemia in neoplastic disease; R53.82 Chronic fatigue, unspecified
CPT/HCPCS: 36415; 80076; 82565; 84153; 84403; 84520